=== PATIENT | female | born 1955 | race Caucasian/White ===

== ENCOUNTER → 2017-12-20 15:34 | Outpatient (CLI) | payer MEDICARE, MEDICAID, SELFPAY ==
[2017-12-20 17:42] LABS: HEMOLYSIS < 15 (0-50); Iron 42 ug/dL (37-170)
[2017-12-20 17:50] LABS: BUN Creatinine Ratio 16.9 (6-22); Calcium 9.3 mg/dL (8.4-10.2); Estimated Glomerular Filt Rate 18.8 mL/min (>60); Glucose 103 mg/dL (80-110); HEMOLYSIS < 15 (0-50); Potassium 4.8 mmol/L (3.4-5.1); Sodium 144 mmol/L (137-145)
[2017-12-20 17:53] LABS: Percent Iron Saturation 11 % (15-50); Total Iron Binding Capacity 369 ug/mL (265-497); Transferrin 298 mg/dL (206-381)
[2017-12-20 18:19] LABS: Ferritin 40.7 ng/mL (11.1-264)
[2017-12-22 15:56] LABS: Parathyroid Hormone Int 423 pg/mL (14-64)
== END ==
PROVIDERS: PCP Nurse Practitioner; Visit Provider Student in an Organized Health Care Education/Training Program
DX: N05.9 Unspecified nephritic syndrome with unspecified morphologic changes (principal); I50.32 Chronic diastolic (congestive) heart failure; D50.0 Iron deficiency anemia secondary to blood loss (chronic); N25.81 Secondary hyperparathyroidism of renal origin
CPT/HCPCS: 36415; 80048; 82728; 83540; 83550; 83880; 83970

== ENCOUNTER → 2018-02-20 12:46 | Outpatient (CLI) | payer MEDICARE, MEDICAID, SELFPAY ==
[2018-02-20 13:11] LABS: Hematocrit 35.8 % (36-46); Hemoglobin 11.6 g/dL (12.0-16.0)
[2018-02-20 13:54] LABS: BUN Creatinine Ratio 18.8 (6-22); Blood Urea Nitrogen 45 mg/dL (7-17); Calcium 9.6 mg/dL (8.4-10.2); Carbon Dioxide 25 mmol/L (22-32); Chloride 107 mmol/L (98-107); Estimated Glomerular Filt Rate 20.5 mL/min (>60); Glucose 158 mg/dL (80-110); HEMOLYSIS < 15 (0-50); Potassium 4.7 mmol/L (3.4-5.1); Sodium 142 mmol/L (137-145)
[2018-02-20 14:00] LABS: HEMOLYSIS < 15 (0-50); Iron 52 ug/dL (37-170)
[2018-02-20 14:10] LABS: Percent Iron Saturation 15 % (15-50); Total Iron Binding Capacity 348 ug/dL (265-497); Transferrin 283 mg/dL (206-381)
[2018-02-20 14:23] LABS: Ferritin 30.3 ng/mL (11.1-264)
[2018-02-22 13:46] LABS: Parathyroid Hormone Int 314 pg/mL (14-64)
== END ==
PROVIDERS: PCP Nurse Practitioner; Visit Provider Student in an Organized Health Care Education/Training Program
DX: N05.9 Unspecified nephritic syndrome with unspecified morphologic changes (principal); I50.32 Chronic diastolic (congestive) heart failure; D50.0 Iron deficiency anemia secondary to blood loss (chronic); D64.9 Anemia, unspecified; N25.81 Secondary hyperparathyroidism of renal origin
CPT/HCPCS: 36415; 80048; 82728; 83540; 83550; 83880; 83970; 85014; 85018

== ENCOUNTER → 2018-04-17 14:16 | Outpatient (CLI) | payer MEDICARE, MEDICAID, SELFPAY ==
[2018-04-17 15:10] LABS: Hematocrit 36.6 % (36-46); Hemoglobin 12.2 g/dL (12.0-16.0)
[2018-04-17 15:31] LABS: B Type Natriuretic Peptide 87.2 (<100)
[2018-04-17 15:44] LABS: BUN Creatinine Ratio 18.5 (6-22); Blood Urea Nitrogen 50 mg/dL (7-17); Calcium 9.7 mg/dL (8.4-10.2); Carbon Dioxide 25 mmol/L (22-32); Chloride 104 mmol/L (98-107); Estimated Glomerular Filt Rate 17.9 mL/min (>60); Glucose 155 mg/dL (80-110); HEMOLYSIS < 15 (0-50); Iron 58 ug/dL (37-170); Potassium 4.9 mmol/L (3.4-5.1); Sodium 142 mmol/L (137-145)
[2018-04-17 15:55] LABS: Percent Iron Saturation 18 % (15-50); Total Iron Binding Capacity 327 ug/dL (265-497); Transferrin 294 mg/dL (206-381)
[2018-04-17 16:21] LABS: Ferritin 42.5 ng/mL (11.1-264)
[2018-04-20 14:40] LABS: Parathyroid Hormone Int 447 pg/mL (14-64)
== END ==
PROVIDERS: PCP Nurse Practitioner; Visit Provider Student in an Organized Health Care Education/Training Program
DX: N05.9 Unspecified nephritic syndrome with unspecified morphologic changes (principal); I50.32 Chronic diastolic (congestive) heart failure; D50.9 Iron deficiency anemia, unspecified; K64.9 Unspecified hemorrhoids; N25.81 Secondary hyperparathyroidism of renal origin
CPT/HCPCS: 36415; 80048; 82728; 83540; 83550; 83880; 83970; 85014; 85018

== ENCOUNTER 2018-05-12 18:21 | Emergency (ER) | payer MEDICARE, MEDICAID, SELFPAY ==
[2018-05-12 18:33] VITALS: BP 155/75; PULSE 73; RESP 18; TEMP 36.3; O2SAT 99
[2018-05-12 18:38] LABS: Appearance Urine UA CLOUDY; Bilirubin Urine UA NEGATIVE (NEGATIVE); Color Urine UA YELLOW; Glucose Urine UA NEGATIVE (Normal); Ketones Urine UA NEGATIVE (NEGATIVE); Leukocyte Esterase Urine UA 2+ (NEGATIVE); Nitrite Urine UA NEGATIVE (Negative); Occult Blood Urine UA 1+ (Negative); Protein Urine UA 3+ (Negative); Specific Gravity Urine UA 1.015 (1.000-1.035); Urobilinogen Urine UA 0.2 E.U./dL (0.2); pH Urine UA 5.5 (4.5-8.0)
[2018-05-12 19:02] LABS: Bacteria Urine Many (>30); Culture Indicated Urine Specimen Cultured; RBC Urine 1-5/HPF (0-5/HPF); WBC Urine >100/HPF (0-5/HPF)
--- NOTE | 2018-05-12 19:04 | ED_ITS ---
HPI - Female Genitourinary <SARITHA Tran - Last Filed: 05/12/18 19:32> General Chief complaint: Urogenital-Female Stated complaint: UTI Time Seen by Provider: 05/12/18 18:50 Source: patient Mode of arrival: ambulatory Limitations: no limitations History of Present Illness HPI Narrative: Patient presents with chief complaint of ?I have a UTI.? She has a history of diabetes, renal failure and just received a fistula the other day at [place]. She complains of dysuria, urgency and frequency since Sunday. She has taken azo. She denies any chest pain, shortness of breath, flank pain, fever, vomiting or diarrhea. She has no abnormal vaginal symptoms. Related Data Home Medications Medication Instructions Recorded Confirmed OMEGA-3 FATTY ACIDS (FISH OIL) 1,000 mg PO Q DAY #0 03/19/16 ascorbic acid (vitamin C) #0 03/19/16 aspirin 81 mg PO QDAY #0 03/19/16 multivitamin [Multiple Vitamins] 1 tab PO QDAY #0 tab 03/19/16 amlodipine 10 mg PO HS #0 10/10/17 bupropion HCl [Wellbutrin SR] 150 mg PO BID #0 10/10/17 glimepiride [Amaryl] 2 tab PO #0 10/10/17 insulin glargine [Basaglar KwikPen #0 10/10/17 U-100 Insulin] levothyroxine 1 tab PO QDAY #0 10/10/17 oxycodone 5 mg PO #0 10/10/17 rosuvastatin 20 mg PO QDAY #0 10/10/17 Previous Rx's Medication Instructions Recorded doxycycline hyclate 100 mg PO Q12H #20 cap 10/18/17 prednisone 10 mg PO SEE INSTRUCTIONS 12 Days 10/18/17 #0 tab sulfamethoxazole-trimethoprim 1 tab PO BID 7 Days #14 tab 05/12/18 [Bactrim] Allergies Allergy/AdvReac Type Severity Reaction Status Date / Time No Known Drug Allergies Allergy Verified 05/12/18 18:36 Review of Systems <SARITHA Tran - Last Filed: 05/12/18 19:32> Review of Systems GENERAL: Denies chills, fatigue, malaise, fever, sweats. HEENT: Denies sinus pain, ear pain, sore throat, difficulty swallowing, dizziness. RESPIRATORY: Denies dyspnea, cough, wheezing, hemoptysis, sputum. CARDIOVASCULAR: Denies chest pain, palpitations, orthopnea, edema, GASTROINTESTINAL: Denies nausea, vomiting, abdominal pain, diarrhea, constipation, melena. : See HPI MUSCULOSKELETAL: denies weakness, joint pain, or bony pain SKIN: Denies rash, skin lesions, or other NEUROLOGIC: Denies weakness, headache, numbness, change in speech, confusion, seizures, incoordination. PSYCHIATRIC: No concerning psychosocial issues. 12 point review of systems is negative except for those stated above Exam <CORTNEY Tran-BC - Last Filed: 05/12/18 19:32> Narrative Exam Narrative: GENERAL: Obese patient sitting on stretcher HEAD: Atraumatic. Normocephalic. No temporal or scalp tenderness. EYES: Pupils equal round and reactive. Extraocular motions intact. No scleral icterus. No injection or drainage. ENT: Nose without bleeding, purulent drainage or septal hematoma. Throat without erythema, tonsillar hypertrophy or exudate. Uvula midline. Airway patent. NECK: Trachea midline. No JVD or lymphadenopathy. Supple, nontender, no meningeal signs. CARDIOVASCULAR: Regular rate and rhythm without murmurs, gallops, or rubs. RESPIRATORY: Clear to auscultation. Breath sounds equal bilaterally. No wheezes , rales, or rhonchi. GASTROINTESTINAL: Abdomen soft, suprapubic tenderness to palpation, nondistended. No hepato-splenomegaly, or palpable masses. No guarding. No pulsatile mass. Active bowel sounds all 4 quadrants. EXTREMITIES: No clubbing, cyanosis, or edema. No joint tenderness, effusion, or edema noted. BACK: Nontender without deformity or crepitance. No CVA tenderness bilaterally. NEURO: AOx3. SKIN: Fistula site and left arm without erythema. Edges well approximated no drainage noted Initial Vital Signs Initial Vital Signs: Vital Signs Temperature 97.4 F L 05/12/18 18:33 Pulse Rate 73 05/12/18 18:33 Respiratory Rate 18 05/12/18 18:33 Blood Pressure 155/75 H 05/12/18 18:33 Pulse Oximetry 99 05/12/18 18:33 <Magdalena Gallagher DO - Last Filed: 05/14/18 01:47> Initial Vital Signs Initial Vital Signs: Vital Signs Temperature 97.4 F L 05/12/18 18:33 Pulse Rate 73 05/12/18 18:33 Respiratory Rate 18 05/12/18 18:33 Blood Pressure 155/75 H 05/12/18 18:33 Pulse Oximetry 99 05/12/18 18:33 Course <SARITHA Tran - Last Filed: 05/12/18 19:32> Orders Ordered: Discontinued Medications Trimethoprim/Sulfamethoxazole (Bactrim Ds) 1 tab PO NOW ONE Stop: 05/12/18 19:21 Last Admin: 05/12/18 19:33 Dose: 1 tab Vital Signs - 8 hr 05/12/18 18:33 Temperature 97.4 F L Pulse Rate 73 Respiratory Rate 18 Blood Pressure 155/75 H Pulse Oximetry 99 <Magdalena Gallagher DO - Last Filed: 05/14/18 01:47> Orders Ordered: Discontinued Medications Trimethoprim/Sulfamethoxazole (Bactrim Ds) 1 tab PO NOW ONE Stop: 05/12/18 19:21 Last Admin: 05/12/18 19:33 Dose: 1 tab Vital Signs - 8 hr 05/12/18 18:33 Temperature 97.4 F L Pulse Rate 73 Respiratory Rate 18 Blood Pressure 155/75 H Pulse Oximetry 99 MDM - Female Genitourinary <SARITHA Tran - Last Filed: 05/12/18 19:32> Lab Data Attestation: I reviewed the patient's lab results. Lab Results 05/12/18 Range/Units 18:25 Urine Color Yellow Urine Appearance Cloudy Urine pH 5.5 (4.5-8.0) Ur Specific [place] 1.015 (1.000-1.035) Urine Protein 3+ H (Negative) Urine Glucose (UA) Negative (Normal) g/dL Urine Ketones Negative (NEGATIVE) Urine Occult Blood 1+ H (Negative) Urine Nitrate Negative (Negative) Urine Bilirubin Negative (NEGATIVE) Urine Urobilinogen 0.2 (0.2) E.U./dL Ur Leukocyte Esterase 2+ H (NEGATIVE) Urine RBC 1-5/hpf (0-5/HPF) Urine WBC >100/hpf H (0-5/HPF) Urine Bacteria Many (>30) H (None) Ur Culture Indicated? Specimen cultured Micro UA Comment Not Reportable MDM Narrative Medical decision making narrative: Patient presents with signs and symptoms of urinary tract infection. She is hemodynamically stable, afebrile and nontoxic- appearing. She is noted to have many bacteria on her UA. However given her reduce kidney function, antibiotic selection is crucial for this patient. I calculated out her creatinine clearance as well as her GFR from her most recent visit a few weeks ago. As per up-to-date recommendations, I gave her a single double strength Bactrim and placed her on a regular strength Bactrim twice a day. I discussed at length follow-up precautions including fever, flank pain, worsening or no improvement. She really has a PCP appointment scheduled on Sunday plans on following up with that. She has no questions or concerns upon discharge. <Magdalena Gallagher, - Last Filed: 05/14/18 01:47> Lab Data Lab Results 05/12/18 Range/Units 18:25 Urine Color Yellow Urine Appearance Cloudy Urine pH 5.5 (4.5-8.0) Ur Specific [place] 1.015 (1.000-1.035) Urine Protein 3+ H (Negative) Urine Glucose (UA) Negative (Normal) g/dL Urine Ketones Negative (NEGATIVE) Urine Occult Blood 1+ H (Negative) Urine Nitrate Negative (Negative) Urine Bilirubin Negative (NEGATIVE) Urine Urobilinogen 0.2 (0.2) E.U./dL Ur Leukocyte Esterase 2+ H (NEGATIVE) Urine RBC 1-5/hpf (0-5/HPF) Urine WBC >100/hpf H (0-5/HPF) Urine Bacteria Many (>30) H (None) Ur Culture Indicated? Specimen cultured Micro UA Comment Not Reportable Discharge Plan Departure Patient Disposition: Home Clinical Impression: Acute UTI Discharge Date/Time: 05/12/18 19:44 Interventions: ED Discharge Assessment Last Done: 05/12/18 19:44 Instructions: DI for Urinary Tract Infection (UTI) Activity Restrictions/Additional Instructions: I am starting on Bactrim for the urinary tract infection. I have made the dose of Bactrim safe for your kidney function. Please follow-up with primary care provider as scheduled. Please monitor for fever, flank pain inability keep down fluids. Please be re-evaluated if any of these occur. Prescriptions: New sulfamethoxazole-trimethoprim [Bactrim] 400-80 mg tablet 1 tab PO BID 7 Days Qty: 14 RF: 0 No Action aspirin 81 MG tablet,delayed release (DR/EC) 81 mg PO QDAY Qty: 0 RF: 0 multivitamin [Multiple Vitamins] 1 EACH tablet 1 tab PO QDAY Qty: 0 RF: 0 OMEGA-3 FATTY ACIDS (FISH OIL) 1,000 mg PO Q DAY Qty: 0 RF: 0 ascorbic acid (vitamin C) 500 MG tablet Qty: 0 RF: 0 bupropion HCl [Wellbutrin SR] 150 MG tablet extended release 12 hr 150 mg PO BID Qty: 0 RF: 0 insulin glargine [Basaglar KwikPen U-100 Insulin] 100 UNIT/1 ML insulin pen Qty: 0 RF: 0 levothyroxine 200 MCG tablet 1 tab PO QDAY Qty: 0 RF: 0 oxycodone 5 MG tablet 5 mg PO Qty: 0 RF: 0 amlodipine 10 MG tablet 10 mg PO HS Qty: 0 RF: 0 rosuvastatin 20 MG tablet 20 mg PO QDAY Qty: 0 RF: 0 glimepiride [Amaryl] 4 MG tablet 2 tab PO Qty: 0 RF: 0 prednisone 10 MG tablet 10 mg PO SEE INSTRUCTIONS 12 Days Qty: 0 RF: 0 doxycycline hyclate 100 MG capsule 100 mg PO Q12H Qty: 20 RF: 0 Referrals: Penny Lombardi ARNP [Primary Care Provider] - <Magdalena Gallagher DO - Last Filed: 05/14/18 01:47> Cosign ED Attending Daina Attestation: I was immediately available in the department for consultation. Documentation has been reviewed. I agree with assessment and plan.
[2018-05-12] MEDS: TRIMETH/SULFA 160/800 (DS) TABLET 1 TAB PO (19:33)
[2018-05-12 19:44] VITALS: BP 154/72; PULSE 75; RESP 18; TEMP 36.3; O2SAT 98
== END 2018-05-12 19:44 | disposition home or self-care (01) ==
PROVIDERS: Emergency Medicine; Emergency Provider Nurse Practitioner Family; PCP Nurse Practitioner
DX: N39.0 Urinary tract infection, site not specified (principal)
CPT/HCPCS: 81001; 87077; 87086; 87186; 99283

== ENCOUNTER → 2018-06-18 10:34 | Outpatient (CLI) | payer MEDICARE, MEDICAID, SELFPAY ==
[2018-06-18 12:01] LABS: Hematocrit 34.3 % (36-46); Hemoglobin 11.1 g/dL (12.0-16.0)
[2018-06-18 12:17] LABS: BUN Creatinine Ratio 18.2 (6-22); Blood Urea Nitrogen 51 mg/dL (7-17); Calcium 9.6 mg/dL (8.4-10.2); Carbon Dioxide 23 mmol/L (22-32); Chloride 105 mmol/L (98-107); Estimated Glomerular Filt Rate 17.2 mL/min (>60); Glucose 174 mg/dL (80-110); HEMOLYSIS < 15 (0-50); Potassium 4.7 mmol/L (3.4-5.1); Sodium 145 mmol/L (137-145)
[2018-06-18 12:22] LABS: HEMOLYSIS < 15 (0-50); Iron 72 ug/dL (37-170)
[2018-06-18 12:32] LABS: Percent Iron Saturation 22 % (15-50); Total Iron Binding Capacity 324 ug/dL (265-497); Transferrin 273 mg/dL (206-381)
[2018-06-18 12:52] LABS: Ferritin 48.8 ng/mL (11.1-264)
[2018-06-19 14:57] LABS: Parathyroid Hormone Int 318 pg/mL (14-64)
== END ==
PROVIDERS: PCP Nurse Practitioner; Visit Provider Student in an Organized Health Care Education/Training Program
DX: N05.9 Unspecified nephritic syndrome with unspecified morphologic changes (principal); D50.0 Iron deficiency anemia secondary to blood loss (chronic); D64.9 Anemia, unspecified; N25.81 Secondary hyperparathyroidism of renal origin
CPT/HCPCS: 36415; 80048; 82728; 83540; 83550; 83970; 85014; 85018

== ENCOUNTER → 2018-08-08 13:43 | Outpatient (CLI) | payer MEDICARE, MEDICAID, SELFPAY ==
--- NOTE | 2018-08-08 15:05 | PM.TREADMILL ---
Cardiac Stress Test Report Referral & Results Date Patient Seen: 08/08/18 Requesting provider: Penny Lombardi Indication: Dyspnea upon exertion Rest ECG: Intraventricular conduction delay/right bundle branch block Procedure Note: Today following both written and verbal informed consent, the patient was exercised according to a standard [facility] protocol. The patient exercised for a total of 2 min 13 sec achieving a maximum heart rate of 140. Patient's maximum systolic blood pressure was 208. This was an estimated 4.6 MET's. Patient's oxygen saturation remained at 94+ percent throughout Patient had severely limited exercise capacity with a functional aerobic impairment of about 50% on the sedentary scale. She became severely dyspneic while her oxygen saturation remained normal. No ST see segment changes were noted though certainly her underlying ECG abnormalities could mask more subtle ST-T segment changes Impression: Severely limited exercise capacity Severe dyspnea No evidence of ischemia Abnormal EKG at baseline Could repeat stress test with perfusion imaging if clinical indication suggest that would be appropriate Please note: Actual ECG tracings can be found in the PACS system.
== END ==
PROVIDERS: PCP Nurse Practitioner; Visit Provider Nurse Practitioner
DX: R06.09 Other forms of dyspnea (principal); R94.31 Abnormal electrocardiogram [ECG] [EKG]
CPT/HCPCS: 93016; 93017; 93018

== ENCOUNTER → 2018-08-16 13:31 | Outpatient (CLI) | payer MEDICARE, MEDICAID, SELFPAY ==
[2018-08-16 14:08] LABS: Hematocrit 34.3 % (36-46); Hemoglobin 11.1 g/dL (12.0-16.0)
[2018-08-16 14:37] LABS: BUN Creatinine Ratio 18.3 (6-22); Blood Urea Nitrogen 55 mg/dL (7-17); Calcium 9.5 mg/dL (8.4-10.2); Carbon Dioxide 23 mmol/L (22-32); Chloride 107 mmol/L (98-107); Estimated Glomerular Filt Rate 15.9 mL/min (>60); Glucose 110 mg/dL (80-110); HEMOLYSIS < 15 (0-50); Potassium 4.8 mmol/L (3.4-5.1); Sodium 141 mmol/L (137-145)
[2018-08-16 15:35] LABS: HEMOLYSIS < 15 (0-50); Iron 56 ug/dL (37-170)
[2018-08-16 15:47] LABS: Percent Iron Saturation 17 % (15-50); Total Iron Binding Capacity 331 ug/dL (265-497); Transferrin 280 mg/dL (206-381)
[2018-08-20 16:22] LABS: Parathyroid Hormone Int 288 pg/mL (14-64)
== END ==
PROVIDERS: PCP Nurse Practitioner; Visit Provider Student in an Organized Health Care Education/Training Program
DX: B05.9 Measles without complication (principal); D50.0 Iron deficiency anemia secondary to blood loss (chronic); D64.9 Anemia, unspecified; N25.81 Secondary hyperparathyroidism of renal origin
CPT/HCPCS: 36415; 80048; 82728; 83540; 83550; 83970; 85014; 85018

== ENCOUNTER → 2018-09-13 16:23 | Outpatient (CLI) | payer MEDICARE, MEDICAID, SELFPAY ==
[2018-09-13 17:23] LABS: Hematocrit 34.3 % (36-46); Hemoglobin 11.1 g/dL (12.0-16.0)
[2018-09-13 17:44] LABS: B Type Natriuretic Peptide 205 (<100)
[2018-09-13 18:01] LABS: HEMOLYSIS < 15 (0-50); Iron 72 ug/dL (37-170)
[2018-09-13 18:02] LABS: BUN Creatinine Ratio 21.8 (6-22); Blood Urea Nitrogen 74 mg/dL (7-17); Calcium 9.8 mg/dL (8.4-10.2); Carbon Dioxide 22 mmol/L (22-32); Chloride 102 mmol/L (98-107); Estimated Glomerular Filt Rate 13.7 mL/min (>60); Glucose 61 mg/dL (80-110); HEMOLYSIS < 15 (0-50); Sodium 138 mmol/L (137-145)
[2018-09-13 18:11] LABS: Percent Iron Saturation 20 % (15-50); Total Iron Binding Capacity 369 ug/dL (265-497); Transferrin 298 mg/dL (206-381)
[2018-09-13 18:18] LABS: Potassium 5.4 mmol/L (3.4-5.1)
[2018-09-13 18:37] LABS: Ferritin 36.5 ng/mL (11.1-264)
[2018-09-17 14:31] LABS: Parathyroid Hormone Int 365 pg/mL (14-64)
== END ==
PROVIDERS: PCP Nurse Practitioner; Visit Provider Student in an Organized Health Care Education/Training Program
DX: N05.9 Unspecified nephritic syndrome with unspecified morphologic changes (principal); I50.32 Chronic diastolic (congestive) heart failure; D50.0 Iron deficiency anemia secondary to blood loss (chronic); D64.9 Anemia, unspecified; N25.81 Secondary hyperparathyroidism of renal origin
CPT/HCPCS: 36415; 80048; 82728; 83540; 83550; 83880; 83970; 85014; 85018

== ENCOUNTER → 2018-09-18 16:56 | Outpatient (CLI) | payer MEDICARE, MEDICAID, SELFPAY ==
--- NOTE | 2018-09-18 16:59 | DI.RAD.S_ITS ---
PROCEDURE: XR CHEST 2V INDICATIONS: SHORTNESS OF BREATH TECHNIQUE: 2 views of the chest were acquired. COMPARISON: [facility], , CHEST 2 VIEW, 10/18/2017, 1:47. FINDINGS: Surgical changes and devices: None. Lungs and pleura: Increased vascular markings and bilateral hilar region is seen with bronchial wall thickening. No definite focal infiltrate. No pleural effusions or pneumothorax. Mediastinum: Mediastinal contours are normal. Heart size is normal. Bones and chest wall: No suspicious bony abnormalities. Soft tissues appear unremarkable. IMPRESSION: Suggestion of reactive airway disease. No definite focal infiltrate. Dictated by: Dane Pugh M.D. on 09/18/2018 at 17:55 Approved by: Dane Pugh M.D. on 09/18/2018 at 17:56
== END ==
PROVIDERS: PCP Nurse Practitioner; Visit Provider Student in an Organized Health Care Education/Training Program
DX: R06.02 Shortness of breath (principal)
CPT/HCPCS: 71046

== ENCOUNTER 2018-10-08 18:53 | Emergency (ER) | payer MEDICARE, MEDICAID, SELFPAY ==
[2018-10-08] VITALS (7 sets, daily range): BP systolic 138–177; BP diastolic 54–86; PULSE 65–92; RESP 16–20; TEMP 36.9–39.5; O2SAT 92–98; BMI 41.1
--- NOTE | 2018-10-08 19:04 | DI.RAD.S_ITS ---
PROCEDURE: XR CHEST 2V INDICATIONS: productive cough TECHNIQUE: 2 views of the chest were acquired. COMPARISON: [facility], CR, XR CHEST 2V, 09/18/2018, 17:13. FINDINGS: Surgical changes and devices: None. Lungs and pleura: Mild patchy bilateral perihilar and medial basilar density. No pleural effusions or pneumothorax. Mediastinum: Mediastinal contours are normal. Heart size is enlarged. Bones and chest wall: No suspicious bony abnormalities. Soft tissues appear unremarkable. IMPRESSION: Mild atypical pneumonia. Cardiomegaly. Dictated by: Clay Cardona M.D. on 10/08/2018 at 19:26 Approved by: Clay Cardona M.D. on 10/08/2018 at 19:26
[2018-10-08 19:25] LABS: Influenza A and B by PCR Rapid Negative (Negative)
--- NOTE | 2018-10-08 20:14 | ED.URI ---
HPI - URI/Sore Throat General Chief Complaint: Upper Respiratory Symptoms Stated Complaint: FEVER,SORE NECK AND CHEST Time Seen by Provider: 10/08/18 19:58 Source: patient and family Mode of arrival: ambulatory Limitations: no limitations History of Present Illness HPI Narrative: 63-year-old female former smoker dialysis patient presents with a few days of fever, runny nose cough and yellowish sputum. She receives dialysis Sunday and had a full run yesterday. She had her flu shot. She denies any chest pain and is not dizzy or weak or lightheaded. MD Complaint: fever, cough and sore throat Onset (ago): day(s) Duration: constant Severity: moderate Relieving factors: nothing Exacerbating factors: nothing Description of mucous: yellow Able to tolerate fluids by mouth: Yes Context: sick contacts Related Data Home Medications Medication Instructions Recorded Confirmed OMEGA-3 FATTY ACIDS (FISH OIL) 1,000 mg PO Q DAY #0 03/19/16 ascorbic acid (vitamin C) #0 03/19/16 aspirin 81 mg PO QDAY #0 03/19/16 multivitamin [Multiple Vitamins] 1 tab PO QDAY #0 tab 03/19/16 amlodipine 10 mg PO HS #0 10/10/17 bupropion HCl [Wellbutrin SR] 150 mg PO BID #0 10/10/17 glimepiride [Amaryl] 2 tab PO #0 10/10/17 insulin glargine [Basaglar KwikPen #0 10/10/17 U-100 Insulin] levothyroxine 1 tab PO QDAY #0 10/10/17 oxycodone 5 mg PO #0 10/10/17 rosuvastatin 20 mg PO QDAY #0 10/10/17 Previous Rx's Medication Instructions Recorded doxycycline hyclate 100 mg PO Q12H #20 cap 10/18/17 prednisone 10 mg PO SEE INSTRUCTIONS 12 Days 10/18/17 #0 tab doxycycline hyclate 100 mg PO BID #20 tab 10/08/18 Allergies Allergy/AdvReac Type Severity Reaction Status Date / Time No Known Drug Allergies Allergy Verified 10/08/18 18:59 Review of Systems Constitutional Reports body ache(s), Reports chills, Reports fever(s), Denies lethargy and Denies weakness Eyes Denies change in vision, Denies eye discharge, Denies irritation and Denies loss of vision ENT Ears, Nose, Mouth, and Throat: Denies change in voice, Denies neck pain and Reports sore throat Cardiovascular Denies chest pain, Denies irregular heart rhythm, Denies lightheadedness, Denies palpitations, Denies dyspnea, Denies dyspnea on exertion and Denies orthopnea Respiratory Reports change in phlegm color, Reports cough, Denies dyspnea, Denies dyspnea on exertion and Denies wheezing Gastrointestinal Gastrointestinal: Denies abdominal pain, Denies change in bowel habits, Denies diarrhea, Denies nausea and Denies vomiting Genitourinary Denies hematuria, Denies flank pain, Denies urinary incontinence and Denies urinary urgency Musculoskeletal Denies neck pain Integumentary/Breasts Denies pruritus, Denies erythema, Denies rash and Denies wounds Neurologic Denies confusion, Denies loss of vision and Denies weakness Psychiatric Denies anxiety, Denies confusion, Denies depression, Denies homicidal ideation and Denies suicidal ideation Endocrine Denies palpitations Hematologic/Lymphatic Denies easy bruising Allergic/Immunologic Denies wheezing PFSH Family History Father CAD (coronary artery disease) MD (myocardial infarction) Social History Smoking Status: Former smoker Family History Father CAD (coronary artery disease) MD (myocardial infarction) Social History Smoking Status: Former smoker Exam Narrative Exam Narrative: GENERAL: 63-year-old female appears stated age, she is in mild distress with some bronchospastic cough evident from the door HEAD: Atraumatic. Normocephalic. No temporal or scalp tenderness. EYES: Pupils equal round and reactive. Extraocular motions intact. No scleral icterus. No injection or drainage. ENT: Nose without bleeding, purulent drainage or septal hematoma. Throat without erythema, tonsillar hypertrophy or exudate. Uvula midline. Airway patent. NECK: Trachea midline. No JVD or lymphadenopathy. Supple, nontender, no meningeal signs. CARDIOVASCULAR: Regular rate and rhythm without murmurs, gallops, or rubs. RESPIRATORY: Prolonged expiratory phase with some faint crackles in bilateral bases right greater than left GASTROINTESTINAL: Abdomen soft, non-tender, nondistended. No hepato-splenomegaly, or palpable masses. No guarding. EXTREMITIES: No clubbing, cyanosis, or edema. No joint tenderness, effusion, or edema noted. BACK: Nontender without deformity or crepitance. No flank tenderness. NEURO: AOx3. SKIN: No rash or erythema. Initial Vital Signs Initial Vital Signs: Vital Signs Temperature 102.9 F H 10/08/18 18:59 Pulse Rate 92 H 10/08/18 18:59 Respiratory Rate 16 10/08/18 18:59 Blood Pressure 177/79 H 10/08/18 18:59 Pulse Oximetry 98 10/08/18 18:59 Course Orders Ordered: ED Orders 10/08/18 21:05 Complete Blood Count AUTO DIFF Stat Comprehensive Metabolic Panel Stat Lactate (Lactic Acid) Stat Procalcitonin Stat 10/08/18 21:23 Blood Culture Stat Discontinued Medications Acetaminophen (Tylenol) 650 mg PO NOW ONE Stop: 10/08/18 20:36 Last Admin: 10/08/18 20:37 Dose: 650 mg Albuterol (Ventolin Hfa Prepack) 1 box MISC SEEINSTR ONE Stop: 10/08/18 22:13 Last Admin: 10/08/18 22:29 Dose: 1 box Doxycycline Hyclate (Vibramycin) 100 mg PO NOW ONE Stop: 10/08/18 22:13 Last Admin: 10/08/18 22:38 Dose: 100 mg Vital Signs - 8 hr 10/08/18 20:37 10/08/18 21:47 10/08/18 22:04 Temperature 102.7 F H 98.9 F Pulse Rate 85 Respiratory Rate 20 Blood Pressure [Right Arm] 138/54 L Pulse Oximetry 92 10/08/18 22:26 Temperature 98.5 F Pulse Rate 88 Respiratory Rate 18 Blood Pressure [Right Arm] 140/59 L Pulse Oximetry 95 MDM - URI/Sore Throat Lab Data Attestation: I reviewed the patient's lab results. Result diagrams: 10/08/18 21:05 10/08/18 21:05 Lab Results 10/08/18 10/08/18 10/08/18 Range/Units 19:02 21:05 21:05 WBC 9.5 (4.5-11.0) X10^3/uL RBC 4.26 (4.0-5.2) X10^6/uL Hgb 11.2 L (12.0-16.0) g/dL Hct 34.2 L (36-46) % MCV 80.1 (80-100) fL MCH 26.2 (26-34) PG MCHC 32.6 (30-36) % RDW 13.9 (11.6-14.8) % Plt Count 275 (150-400) X10^3/uL Neut % (Auto) 84.1 H (50-75) % Lymph % (Auto) 7.3 L (25-40) % [place] % (Auto) 4.7 (3-14) % Eos % (Auto) 3.3 (2-4) % Baso % (Auto) 0.6 (0-2) % Neut # (Auto) 8000 H (2655-4296) /uL Lymph # (Auto) 700 L (4923-5387) /uL [place] # (Auto) 400 (0-900) /uL Eos # (Auto) 300 (0-450) /uL Baso # (Auto) 100 (0-100) /uL Sodium (137-145) mmol/L Potassium (3.4-5.1) mmol/L Chloride (98-107) mmol/L Carbon Dioxide (22-32) mmol/L BUN (7-17) mg/dL Creatinine (0.52-1.04) mg/dL Estimated GFR (>60) mL/min BUN/Creatinine Ratio (6-22) Glucose (80-110) mg/dL Lactate (0.7-2.1) mmol/L Calcium (8.4-10.2) mg/dL Total Bilirubin (0.2-1.3) mg/dL AST (14-36) IU/L ALT (9-52) IU/L Alkaline Phosphatase (38-126) U/L Total Protein (6.3-8.2) g/dL Albumin (3.5-5.0) g/dL Globulin (1.7-4.1) g/dL Albumin/Globulin Ratio (1.0-2.8) Procalcitonin 0.06 (<0.5) ng/mL Influenza A & B (PCR) Negative (Negative) 10/08/18 10/08/18 Range/Units 21:05 21:05 WBC (4.5-11.0) X10^3/uL RBC (4.0-5.2) X10^6/uL Hgb (12.0-16.0) g/dL Hct (36-46) % MCV (80-100) fL MCH (26-34) PG MCHC (30-36) % RDW (11.6-14.8) % Plt Count (150-400) X10^3/uL Neut % (Auto) (50-75) % Lymph % (Auto) (25-40) % [place] % (Auto) (3-14) % Eos % (Auto) (2-4) % Baso % (Auto) (0-2) % Neut # (Auto) (2563-1517) /uL Lymph # (Auto) (3968-2692) /uL [place] # (Auto) (0-900) /uL Eos # (Auto) (0-450) /uL Baso # (Auto) (0-100) /uL Sodium 140 (137-145) mmol/L Potassium 4.1 (3.4-5.1) mmol/L Chloride 102 (98-107) mmol/L Carbon Dioxide 26 (22-32) mmol/L BUN 38 H (7-17) mg/dL Creatinine 2.60 H (0.52-1.04) mg/dL Estimated GFR 18.7 L (>60) mL/min BUN/Creatinine Ratio 14.6 (6-22) Glucose 88 (80-110) mg/dL Lactate 1.3 (0.7-2.1) mmol/L Calcium 9.8 (8.4-10.2) mg/dL Total Bilirubin 0.3 (0.2-1.3) mg/dL AST 21 (14-36) IU/L ALT 17 (9-52) IU/L Alkaline Phosphatase 105 (38-126) U/L Total Protein 8.2 (6.3-8.2) g/dL Albumin 4.7 (3.5-5.0) g/dL Globulin 3.5 (1.7-4.1) g/dL Albumin/Globulin Ratio 1.3 (1.0-2.8) Procalcitonin (<0.5) ng/mL Influenza A & B (PCR) (Negative) Imaging Data Chest x-ray: My impression: [address] [address] XRay Report Signed Patient: Petra Lopez [facility]#: [id number] : 7Acct:[id number] Age/Sex: 63 / FDate of Service: 10/08/18 Loc: ED Accession Number: [id number] Procedure: XR chest 2V Ordering Provider: John Clark D.O. PROCEDURE: XR CHEST 2V INDICATIONS: productive cough TECHNIQUE: 2 views of the chest were acquired. COMPARISON: [facility], , XR CHEST 2V, 09/18/2018, 17:13. FINDINGS: Surgical changes and devices: None. Lungs and pleura: Mild patchy bilateral perihilar and medial basilar density. No pleural effusions or pneumothorax. Mediastinum: Mediastinal contours are normal. Heart size is enlarged. Bones and chest wall: No suspicious bony abnormalities. Soft tissues appear unremarkable. IMPRESSION: Mild atypical pneumonia. Cardiomegaly. Dictated by: Clay Cardona M.D. on 10/08/2018 at 19:26 Approved by: Clay Cardona M.D. on 10/08/2018 at 19:26 Discharge Plan Departure Patient Disposition: Home Clinical Impression: Atypical pneumonia Discharge Date/Time: 10/08/18 22:44 Interventions: ED Discharge Assessment Last Done: 10/08/18 22:44 Instructions: DI for Atypical Pneumonia Activity Restrictions/Additional Instructions: *You have been diagnosed with [atypical pneumonia ] *What to do: *Take medications as directed: Your antibiotics have been electronically transmitted to the [facility] in [place] at your request *Follow up with your primary care provider in 2-3 days, call for an appointment. Let them know you were seen in the Emergency Department and that we ask that you be seen in follow up *Return to ER if you should have any new, worsening or concerning symptoms *Please call your dialysis center in the morning to see if they want you to come in given your atypical pneumonia Prescriptions: New doxycycline hyclate 100 mg tablet 100 mg PO BID Qty: 20 RF: 0 No Action aspirin 81 MG tablet,delayed release (DR/EC) 81 mg PO QDAY Qty: 0 RF: 0 multivitamin [Multiple Vitamins] 1 EACH tablet 1 tab PO QDAY Qty: 0 RF: 0 OMEGA-3 FATTY ACIDS (FISH OIL) 1,000 mg PO Q DAY Qty: 0 RF: 0 ascorbic acid (vitamin C) 500 MG tablet Qty: 0 RF: 0 bupropion HCl [Wellbutrin SR] 150 MG tablet extended release 12 hr 150 mg PO BID Qty: 0 RF: 0 insulin glargine [Basaglar KwikPen U-100 Insulin] 100 UNIT/1 ML insulin pen Qty: 0 RF: 0 levothyroxine 200 MCG tablet 1 tab PO QDAY Qty: 0 RF: 0 oxycodone 5 MG tablet 5 mg PO Qty: 0 RF: 0 amlodipine 10 MG tablet 10 mg PO HS Qty: 0 RF: 0 rosuvastatin 20 MG tablet 20 mg PO QDAY Qty: 0 RF: 0 glimepiride [Amaryl] 4 MG tablet 2 tab PO Qty: 0 RF: 0 prednisone 10 MG tablet 10 mg PO SEE INSTRUCTIONS 12 Days Qty: 0 RF: 0 doxycycline hyclate 100 MG capsule 100 mg PO Q12H Qty: 20 RF: 0 Referrals: Penny Lombardi, [facility] [Primary Care Provider] -
[2018-10-08] MEDS: ACETAMINOPHEN 325 MG TABLET 650 MG PO (20:37)
[2018-10-08 21:25] LABS: Add Manual Diff / Slide Review NO; Basophils Absolute Auto 100 /uL (0-100); Basophils Percent Auto 0.6 % (0-2); Eosinophils Absolute Auto 300 /uL (0-450); Eosinophils Percent Auto 3.3 % (2-4); Hematocrit 34.2 % (36-46); Hemoglobin 11.2 g/dL (12.0-16.0); Lymphocytes Absolute Auto 700 /uL (1100-4500); Lymphocytes Percent Auto 7.3 % (25-40); Mean Corpuscular HGB Conc 32.6 % (30-36); Mean Corpuscular Hemoglobin 26.2 PG (26-34); Mean Corpuscular Volume 80.1 fL (80-100); Monocytes Absolute Auto 400 /uL (0-900); Monocytes Percent Auto 4.7 % (3-14); Neutrophils Absolute Auto 8000 /uL (1500-7000); Neutrophils Percent Auto 84.1 % (50-75); Platelet Count 275 X10^3/uL (150-400); Red Blood Cell Count 4.26 X10^6/uL (4.0-5.2); Red Cell Distribution Width 13.9 % (11.6-14.8); White Blood Cell Count 9.5 X10^3/uL (4.5-11.0)
[2018-10-08 21:26] LABS: Lactate (Lactic Acid) 1.3 mmol/L (0.7-2.1)
[2018-10-08 21:27] LABS: Alanine Aminotransferase 17 IU/L (9-52); Albumin 4.7 g/dL (3.5-5.0); Albumin Globulin Ratio 1.3 (1.0-2.8); Alkaline Phosphatase 105 U/L (38-126); Aspartate Aminotransferase 21 IU/L (14-36); BUN Creatinine Ratio 14.6 (6-22); Bilirubin Total 0.3 mg/dL (0.2-1.3); Blood Urea Nitrogen 38 mg/dL (7-17); Calcium 9.8 mg/dL (8.4-10.2); Carbon Dioxide 26 mmol/L (22-32); Chloride 102 mmol/L (98-107); Estimated Glomerular Filt Rate 18.7 mL/min (>60); Globulin 3.5 g/dL (1.7-4.1); Glucose 88 mg/dL (80-110); HEMOLYSIS < 15 (0-50); Potassium 4.1 mmol/L (3.4-5.1); Sodium 140 mmol/L (137-145); Total Protein 8.2 g/dL (6.3-8.2)
[2018-10-08 21:42] LABS: Procalcitonin 0.06 ng/mL (<0.5)
[2018-10-08] MEDS: ALBUTEROL HFA PREPACK 1 BOX MISC (22:29)
[2018-10-08] MEDS: DOXYCYCLINE HYCLATE 100 MG TABLET PO (22:38)
--- NOTE | 2018-10-09 04:14 | ED_ITS ---
HPI - URI/Sore Throat General Chief Complaint: Upper Respiratory Symptoms Stated Complaint: FEVER,SORE NECK AND CHEST Time Seen by Provider: 10/08/18 19:58 Source: patient and family Mode of arrival: ambulatory Limitations: no limitations History of Present Illness HPI Narrative: 63-year-old female former smoker dialysis patient presents with a few days of fever, runny nose cough and yellowish sputum. She receives dialysis Sunday and had a full run yesterday. She had her flu shot. She denies any chest pain and is not dizzy or weak or lightheaded. MD Complaint: fever, cough and sore throat Onset (ago): day(s) Duration: constant Severity: moderate Relieving factors: nothing Exacerbating factors: nothing Description of mucous: yellow Able to tolerate fluids by mouth: Yes Context: sick contacts Related Data Home Medications Medication Instructions Recorded Confirmed OMEGA-3 FATTY ACIDS (FISH OIL) 1,000 mg PO Q DAY #0 03/19/16 ascorbic acid (vitamin C) #0 03/19/16 aspirin 81 mg PO QDAY #0 03/19/16 multivitamin [Multiple Vitamins] 1 tab PO QDAY #0 tab 03/19/16 amlodipine 10 mg PO HS #0 10/10/17 bupropion HCl [Wellbutrin SR] 150 mg PO BID #0 10/10/17 glimepiride [Amaryl] 2 tab PO #0 10/10/17 insulin glargine [Basaglar KwikPen #0 10/10/17 U-100 Insulin] levothyroxine 1 tab PO QDAY #0 10/10/17 oxycodone 5 mg PO #0 10/10/17 rosuvastatin 20 mg PO QDAY #0 10/10/17 Previous Rx's Medication Instructions Recorded doxycycline hyclate 100 mg PO Q12H #20 cap 10/18/17 prednisone 10 mg PO SEE INSTRUCTIONS 12 Days 10/18/17 #0 tab doxycycline hyclate 100 mg PO BID #20 tab 10/08/18 Allergies Allergy/AdvReac Type Severity Reaction Status Date / Time No Known Drug Allergies Allergy Verified 10/08/18 18:59 Review of Systems Constitutional Reports body ache(s), Reports chills, Reports fever(s), Denies lethargy and Denies weakness Eyes Denies change in vision, Denies eye discharge, Denies irritation and Denies loss of vision ENT Ears, Nose, Mouth, and Throat: Denies change in voice, Denies neck pain and Reports sore throat Cardiovascular Denies chest pain, Denies irregular heart rhythm, Denies lightheadedness, Denies palpitations, Denies dyspnea, Denies dyspnea on exertion and Denies orthopnea Respiratory Reports change in phlegm color, Reports cough, Denies dyspnea, Denies dyspnea on exertion and Denies wheezing Gastrointestinal Gastrointestinal: Denies abdominal pain, Denies change in bowel habits, Denies diarrhea, Denies nausea and Denies vomiting Genitourinary Denies hematuria, Denies flank pain, Denies urinary incontinence and Denies urinary urgency Musculoskeletal Denies neck pain Integumentary/Breasts Denies pruritus, Denies erythema, Denies rash and Denies wounds Neurologic Denies confusion, Denies loss of vision and Denies weakness Psychiatric Denies anxiety, Denies confusion, Denies depression, Denies homicidal ideation and Denies suicidal ideation Endocrine Denies palpitations Hematologic/Lymphatic Denies easy bruising Allergic/Immunologic Denies wheezing PFSH Family History Father CAD (coronary artery disease) [place] (myocardial infarction) Social History Smoking Status: Former smoker Family History Father CAD (coronary artery disease) [place] (myocardial infarction) Social History Smoking Status: Former smoker Exam Narrative Exam Narrative: GENERAL: 63-year-old female appears stated age, she is in mild distress with some bronchospastic cough evident from the door HEAD: Atraumatic. Normocephalic. No temporal or scalp tenderness. EYES: Pupils equal round and reactive. Extraocular motions intact. No scleral icterus. No injection or drainage. ENT: Nose without bleeding, purulent drainage or septal hematoma. Throat without erythema, tonsillar hypertrophy or exudate. Uvula midline. Airway patent. NECK: Trachea midline. No JVD or lymphadenopathy. Supple, nontender, no meningeal signs. CARDIOVASCULAR: Regular rate and rhythm without murmurs, gallops, or rubs. RESPIRATORY: Prolonged expiratory phase with some faint crackles in bilateral bases right greater than left GASTROINTESTINAL: Abdomen soft, non-tender, nondistended. No hepato- splenomegaly, or palpable masses. No guarding. EXTREMITIES: No clubbing, cyanosis, or edema. No joint tenderness, effusion, or edema noted. BACK: Nontender without deformity or crepitance. No flank tenderness. NEURO: AOx3. SKIN: No rash or erythema. Initial Vital Signs Initial Vital Signs: Vital Signs Temperature 102.9 F H 10/08/18 18:59 Pulse Rate 92 H 10/08/18 18:59 Respiratory Rate 16 10/08/18 18:59 Blood Pressure 177/79 H 10/08/18 18:59 Pulse Oximetry 98 10/08/18 18:59 Course Orders Ordered: ED Orders 10/08/18 21:05 Complete Blood Count AUTO DIFF Stat Comprehensive Metabolic Panel Stat Lactate (Lactic Acid) Stat Procalcitonin Stat 10/08/18 21:23 Blood Culture Stat Discontinued Medications Acetaminophen (Tylenol) 650 mg PO NOW ONE Stop: 10/08/18 20:36 Last Admin: 10/08/18 20:37 Dose: 650 mg Albuterol (Ventolin Hfa Prepack) 1 box MISC SEEINSTR ONE Stop: 10/08/18 22:13 Last Admin: 10/08/18 22:29 Dose: 1 box Doxycycline Hyclate (Vibramycin) 100 mg PO NOW ONE Stop: 10/08/18 22:13 Last Admin: 10/08/18 22:38 Dose: 100 mg Vital Signs - 8 hr 10/08/18 20:37 10/08/18 21:47 10/08/18 22:04 Temperature 102.7 F H 98.9 F Pulse Rate 85 Respiratory Rate 20 Blood Pressure [Right Arm] 138/54 L Pulse Oximetry 92 10/08/18 22:26 Temperature 98.5 F Pulse Rate 88 Respiratory Rate 18 Blood Pressure [Right Arm] 140/59 L Pulse Oximetry 95 MDM - URI/Sore Throat Lab Data Attestation: I reviewed the patient's lab results. Result diagrams: 10/08/18 21:05 10/08/18 21:05 Lab Results 10/08/18 10/08/18 10/08/18 Range/Units 19:02 21:05 21:05 WBC 9.5 (4.5-11.0) X10^3/uL RBC 4.26 (4.0-5.2) X10^6/uL Hgb 11.2 L (12.0-16.0) g/dL Hct 34.2 L (36-46) % MCV 80.1 (80-100) fL MCH 26.2 (26-34) PG MCHC 32.6 (30-36) % RDW 13.9 (11.6-14.8) % Plt Count 275 (150-400) X10^3/uL Neut % (Auto) 84.1 H (50-75) % Lymph % (Auto) 7.3 L (25-40) % [place] % (Auto) 4.7 (3-14) % Eos % (Auto) 3.3 (2-4) % Baso % (Auto) 0.6 (0-2) % Neut # (Auto) 8000 H (8852-3143) /uL Lymph # (Auto) 700 L (3191-9794) /uL [place] # (Auto) 400 (0-900) /uL Eos # (Auto) 300 (0-450) /uL Baso # (Auto) 100 (0-100) /uL Sodium (137-145) mmol/L Potassium (3.4-5.1) mmol/L Chloride (98-107) mmol/L Carbon Dioxide (22-32) mmol/L BUN (7-17) mg/dL Creatinine (0.52-1.04) mg/dL Estimated GFR (>60) mL/min BUN/Creatinine Ratio (6-22) Glucose (80-110) mg/dL Lactate (0.7-2.1) mmol/L Calcium (8.4-10.2) mg/dL Total Bilirubin (0.2-1.3) mg/dL AST (14-36) IU/L ALT (9-52) IU/L Alkaline Phosphatase (38-126) U/L Total Protein (6.3-8.2) g/dL Albumin (3.5-5.0) g/dL Globulin (1.7-4.1) g/dL Albumin/Globulin Ratio (1.0-2.8) Procalcitonin 0.06 (<0.5) ng/mL Influenza A & B (PCR) Negative (Negative) 10/08/18 10/08/18 Range/Units 21:05 21:05 WBC (4.5-11.0) X10^3/uL RBC (4.0-5.2) X10^6/uL Hgb (12.0-16.0) g/dL Hct (36-46) % MCV (80-100) fL MCH (26-34) PG MCHC (30-36) % RDW (11.6-14.8) % Plt Count (150-400) X10^3/uL Neut % (Auto) (50-75) % Lymph % (Auto) (25-40) % [place] % (Auto) (3-14) % Eos % (Auto) (2-4) % Baso % (Auto) (0-2) % Neut # (Auto) (1426-8033) /uL Lymph # (Auto) (3704-6295) /uL [place] # (Auto) (0-900) /uL Eos # (Auto) (0-450) /uL Baso # (Auto) (0-100) /uL Sodium 140 (137-145) mmol/L Potassium 4.1 (3.4-5.1) mmol/L Chloride 102 (98-107) mmol/L Carbon Dioxide 26 (22-32) mmol/L BUN 38 H (7-17) mg/dL Creatinine 2.60 H (0.52-1.04) mg/dL Estimated GFR 18.7 L (>60) mL/min BUN/Creatinine Ratio 14.6 (6-22) Glucose 88 (80-110) mg/dL Lactate 1.3 (0.7-2.1) mmol/L Calcium 9.8 (8.4-10.2) mg/dL Total Bilirubin 0.3 (0.2-1.3) mg/dL AST 21 (14-36) IU/L ALT 17 (9-52) IU/L Alkaline Phosphatase 105 (38-126) U/L Total Protein 8.2 (6.3-8.2) g/dL Albumin 4.7 (3.5-5.0) g/dL Globulin 3.5 (1.7-4.1) g/dL Albumin/Globulin Ratio 1.3 (1.0-2.8) Procalcitonin (<0.5) ng/mL Influenza A & B (PCR) (Negative) Imaging Data Chest x-ray: My impression: [address] [address] XRay Report Signed Patient: Petra Lopez [facility]#: [id number] : 7Acct:[id number] Age/Sex: 63 / FDate of Service: 10/08/18 Loc: ED Accession Number: [id number] Procedure: XR chest 2V Ordering Provider: John Clark D.O. PROCEDURE: XR CHEST 2V INDICATIONS: productive cough TECHNIQUE: 2 views of the chest were acquired. COMPARISON: [facility], , XR CHEST 2V, 09/18/2018, 17:13. FINDINGS: Surgical changes and devices: None. Lungs and pleura: Mild patchy bilateral perihilar and medial basilar density. No pleural effusions or pneumothorax. Mediastinum: Mediastinal contours are normal. Heart size is enlarged. Bones and chest wall: No suspicious bony abnormalities. Soft tissues appear unremarkable. IMPRESSION: Mild atypical pneumonia. Cardiomegaly. Dictated by: Clay Cardona M.D. on 10/08/2018 at 19:26 Approved by: Clay Cardona M.D. on 10/08/2018 at 19:26 Discharge Plan Departure Patient Disposition: Home Clinical Impression: Atypical pneumonia Discharge Date/Time: 10/08/18 22:44 Interventions: ED Discharge Assessment Last Done: 10/08/18 22:44 Instructions: DI for Atypical Pneumonia Activity Restrictions/Additional Instructions: *You have been diagnosed with [atypical pneumonia ] *What to do: *Take medications as directed: Your antibiotics have been electronically transmitted to the [facility] in [place] at your request *Follow up with your primary care provider in 2-3 days, call for an appointment. Let them know you were seen in the Emergency Department and that we ask that you be seen in follow up *Return to ER if you should have any new, worsening or concerning symptoms *Please call your dialysis center in the morning to see if they want you to come in given your atypical pneumonia Prescriptions: New doxycycline hyclate 100 mg tablet 100 mg PO BID Qty: 20 RF: 0 No Action aspirin 81 MG tablet,delayed release (DR/EC) 81 mg PO QDAY Qty: 0 RF: 0 multivitamin [Multiple Vitamins] 1 EACH tablet 1 tab PO QDAY Qty: 0 RF: 0 OMEGA-3 FATTY ACIDS (FISH OIL) 1,000 mg PO Q DAY Qty: 0 RF: 0 ascorbic acid (vitamin C) 500 MG tablet Qty: 0 RF: 0 bupropion HCl [Wellbutrin SR] 150 MG tablet extended release 12 hr 150 mg PO BID Qty: 0 RF: 0 insulin glargine [Basaglar KwikPen U-100 Insulin] 100 UNIT/1 ML insulin pen Qty: 0 RF: 0 levothyroxine 200 MCG tablet 1 tab PO QDAY Qty: 0 RF: 0 oxycodone 5 MG tablet 5 mg PO Qty: 0 RF: 0 amlodipine 10 MG tablet 10 mg PO HS Qty: 0 RF: 0 rosuvastatin 20 MG tablet 20 mg PO QDAY Qty: 0 RF: 0 glimepiride [Amaryl] 4 MG tablet 2 tab PO Qty: 0 RF: 0 prednisone 10 MG tablet 10 mg PO SEE INSTRUCTIONS 12 Days Qty: 0 RF: 0 doxycycline hyclate 100 MG capsule 100 mg PO Q12H Qty: 20 RF: 0 Referrals: Penny Lombardi, PLANISHING HAMMER OPERATOR [Primary Care Provider] -
== END 2018-10-08 22:44 | disposition home or self-care (01) ==
PROVIDERS: Emergency Provider Emergency Medicine; PCP Nurse Practitioner
DX: J18.9 Pneumonia, unspecified organism (principal)
CPT/HCPCS: 36415; 36591; 71046; 80053; 83605; 84145; 85025; 87040; 87400; 99283; 99284

== ENCOUNTER → 2019-01-08 10:44 | Outpatient (CLI) | payer MEDICARE, MEDICAID, SELFPAY ==
[2019-01-08 12:07] LABS: Cholesterol 169 mg/dL (140-199); HDL Cholesterol 32 mg/dL (40-60); LDL Cholesterol Calculated 84 mg/dL (<100); Triglycerides 266 mg/dL (35-150)
[2019-01-08 12:14] LABS: Hemoglobin A1C% w Est Avg Glu 6.1 % (4.0-6.0)
[2019-01-08 12:40] LABS: Thyroid Stimulating Hormone 0.78 uIU/mL (0.47-4.68)
== END ==
PROVIDERS: PCP Nurse Practitioner; Visit Provider Nurse Practitioner
DX: G47.30 Sleep apnea, unspecified (principal); E03.9 Hypothyroidism, unspecified; E11.9 Type 2 diabetes mellitus without complications; E78.5 Hyperlipidemia, unspecified
CPT/HCPCS: 36415; 80061; 83036; 84439; 84443

== ENCOUNTER 2019-03-06 17:20 | Emergency (ER) | payer MEDICARE, MEDICAID, SELFPAY ==
[2019-03-06 17:39] VITALS: BP 135/67; PULSE 71; RESP 20; TEMP 37.2; O2SAT 96; BMI 38.9
[2019-03-06 17:54] LABS: Appearance Urine UA CLOUDY; Bilirubin Urine UA NEGATIVE (NEGATIVE); Color Urine UA YELLOW; Glucose Urine UA NEGATIVE (Negative); Ketones Urine UA NEGATIVE (NEGATIVE); Leukocyte Esterase Urine UA 2+ (NEGATIVE); Nitrite Urine UA NEGATIVE (Negative); Occult Blood Urine UA 2+ (Negative); Protein Urine UA 2+ (Negative); Specific Gravity Urine UA 1.015 (1.000-1.035); Urobilinogen Urine UA 0.2 E.U./dL (0.2)
[2019-03-06 18:10] LABS: Bacteria Urine Many (>30); Culture Indicated Urine Specimen Cultured; RBC Urine 10-30/HPF (0-5/HPF); Squamous Epithelial Cell Urine 0-1 /HPF (0-5/HPF); WBC Urine >100/HPF (0-5/HPF)
--- NOTE | 2019-03-06 19:24 | ED.FEMALEGU ---
HPI - Female Genitourinary <Alysha Upton, PROGRAM COORDINATOR [employer] - Last Filed: 03/06/19 20:50> General Chief complaint: Urogenital-Female Stated complaint: states UTI Time Seen by Provider: 03/06/19 19:12 Source: patient Mode of arrival: ambulatory Limitations: no limitations History of Present Illness HPI Narrative: The patient is a 64-year-old female renal failure, on dialysis, who presents with a chief complaint of a urinary tract infection. She just finished a week of Cipro 250 mg b.i.d. and feels as though she still has symptoms. She attributes her urinary tract infection to slipping and landing on a wet toilet at a concert last week. She complains of dysuria urgency and frequency. She denies any fevers nausea vomiting or diarrhea. She denies any sexual activity. She denies any possibility of sexually transmitted infection. She denies any vaginal discharge. Related Data Home Medications Medication Instructions Recorded Confirmed aspirin 81 mg PO QDAY #0 03/19/16 multivitamin [Multiple Vitamins] 1 tab PO DAILY #0 tab 03/19/16 03/06/19 omega [id number]-fish oil [Fish Oil] 1,000 mg PO DAILY #0 03/19/16 Basaglar KwikPen U-100 Insulin 30 units SUBCUT QPM #0 10/10/17 03/06/19 amlodipine 10 mg PO HS #0 10/10/17 bupropion HCl [Wellbutrin SR] 150 mg PO BID #0 10/10/17 03/06/19 glimepiride [Amaryl] 8 mg PO DAILY #0 10/10/17 03/06/19 levothyroxine 1 tab PO DAILY #0 10/10/17 03/06/19 oxycodone 5 - 7.5 mg PO DAILY #0 10/10/17 03/06/19 ascorbic acid (vitamin C) [Vitamin 1,000 mg PO DAILY 03/06/19 03/06/19 C] ciprofloxacin HCl 250 mg PO [id number] 03/06/19 03/06/19 furosemide 20 mg PO DAILY 03/06/19 03/06/19 hydroxyzine HCl 25 - 50 mg PO QID PRN 03/06/19 03/06/19 rosuvastatin 10 mg PO DAILY 03/06/19 03/06/19 sevelamer carbonate 800 mg PO TID 03/06/19 03/06/19 terbinafine HCl 250 mg PO TUTHSA 03/06/19 03/06/19 Previous Rx's Medication Instructions Recorded cephalexin 500 mg PO BID #20 cap 03/06/19 Allergies Allergy/AdvReac Type Severity Reaction Status Date / Time No Known Drug Allergies Allergy Verified 10/08/18 18:59 Review of Systems <SARITHA Tran - Last Filed: 03/06/19 20:50> Review of Systems GENERAL: Denies chills, fatigue, malaise, fever, sweats. HEENT: Denies sinus pain, ear pain, sore throat, difficulty swallowing, dizziness. RESPIRATORY: Denies dyspnea, cough, wheezing, hemoptysis, sputum. CARDIOVASCULAR: Denies chest pain, palpitations, orthopnea, edema, GASTROINTESTINAL: Denies nausea, vomiting, abdominal pain, diarrhea, constipation, melena. : See HPI MUSCULOSKELETAL: denies weakness, joint pain, or bony pain SKIN: Denies rash, skin lesions, or other NEUROLOGIC: Denies weakness, headache, numbness, change in speech, confusion, seizures, incoordination. PSYCHIATRIC: No concerning psychosocial issues. 12 point review of systems is negative except for those stated above PFSH <SARITHA Tran - Last Filed: 03/06/19 20:50> Medical History (Updated 03/06/19 @ 20:46 by SARITHA Tran) Dialysis patient (Acute) Family History Father CAD (coronary artery disease) [place] (myocardial infarction) Social History Smoking Status: Former smoker Social History Smoking Status: Former smoker Exam <SARITHA Tran - Last Filed: 03/06/19 20:50> Narrative Exam Narrative: GENERAL: This is a well-nourished, well-developed patient, no acute distress HEAD: Atraumatic. Normocephalic. No temporal or scalp tenderness. EYES: Pupils equal round and reactive. Extraocular motions intact. No scleral icterus. No injection or drainage. ENT: Nose without bleeding, purulent drainage or septal hematoma. Throat without erythema, tonsillar hypertrophy or exudate. Uvula midline. Airway patent. NECK: Trachea midline. No JVD or lymphadenopathy. Supple, nontender, no meningeal signs. CARDIOVASCULAR: Regular rate and rhythm RESPIRATORY: Clear to auscultation. Breath sounds equal bilaterally. No wheezes, rales, or rhonchi. No cough. No increased respiratory effort. GASTROINTESTINAL: Abdomen soft, non-tender, nondistended. No hepato-splenomegaly, or palpable masses. No guarding. Active bowel sounds all 4 quadrants. EXTREMITIES: No clubbing, cyanosis, or edema. No joint tenderness, effusion, or edema noted. BACK: Nontender without deformity or crepitance. No flank tenderness. NEURO: AOx3. SKIN: No rash or erythema. Initial Vital Signs Initial Vital Signs: Vital Signs Temperature 98.9 F 03/06/19 17:39 Pulse Rate 71 03/06/19 17:39 Respiratory Rate 20 03/06/19 17:39 Blood Pressure 135/67 03/06/19 17:39 Pulse Oximetry 96 03/06/19 17:39 <Alysha Arrieta DO - Last Filed: 03/18/19 09:13> Initial Vital Signs Initial Vital Signs: Vital Signs Temperature 98.9 F 03/06/19 17:39 Pulse Rate 71 03/06/19 17:39 Respiratory Rate 20 03/06/19 17:39 Blood Pressure 135/67 03/06/19 17:39 Pulse Oximetry 96 03/06/19 17:39 Course <CORTNEY Tran-BC - Last Filed: 03/06/19 20:50> Orders Ordered: Discontinued Medications Cephalexin HCl (Keflex) 500 mg PO NOW ONE Stop: 03/06/19 19:48 Last Admin: 03/06/19 19:54 Dose: 500 mg Vital Signs - 8 hr 03/06/19 17:39 03/06/19 19:29 03/06/19 20:00 Temperature 98.9 F Pulse Rate 71 64 63 Respiratory Rate 20 18 17 Blood Pressure 135/67 Blood Pressure [Right Arm] 118/50 L 128/56 L Pulse Oximetry 96 95 100 03/06/19 20:27 Temperature Pulse Rate Respiratory Rate Blood Pressure 128/56 L Blood Pressure [Right Arm] Pulse Oximetry 99 <Alysha Arrieta DO - Last Filed: 03/18/19 09:13> Orders Ordered: Discontinued Medications Cephalexin HCl (Keflex) 500 mg PO NOW ONE Stop: 03/06/19 19:48 Last Admin: 03/06/19 19:54 Dose: 500 mg Vital Signs - 8 hr 03/06/19 17:39 03/06/19 19:29 03/06/19 20:00 Temperature 98.9 F Pulse Rate 71 64 63 Respiratory Rate 20 18 17 Blood Pressure 135/67 Blood Pressure [Right Arm] 118/50 L 128/56 L Pulse Oximetry 96 95 100 03/06/19 20:27 Temperature Pulse Rate Respiratory Rate Blood Pressure 128/56 L Blood Pressure [Right Arm] Pulse Oximetry 99 MDM - Female Genitourinary <CORTNEY Tran-BC - Last Filed: 03/06/19 20:50> Lab Data Lab Results 03/06/19 Range/Units 17:45 Urine Color Yellow Urine Appearance Cloudy Urine pH 7.0 (4.5-8.0) Ur Specific [place] 1.015 (1.000-1.035) Urine Protein 2+ H (Negative) Urine Glucose (UA) Negative (Negative) g/dL Urine Ketones Negative (NEGATIVE) Urine Occult Blood 2+ H (Negative) Urine Nitrate Negative (Negative) Urine Bilirubin Negative (NEGATIVE) Urine Urobilinogen 0.2 (0.2) E.U./dL Ur Leukocyte Esterase 2+ H (NEGATIVE) Urine RBC 10-30/hpf H (0-5/HPF) Urine WBC >100/hpf H (0-5/HPF) Ur Squamous Epith Cells 0-1 /hpf (0-5/HPF) Urine Bacteria Many (>30) H (None) Ur Culture Indicated? Specimen cultured MDM Narrative Medical decision making narrative: The patient is a 64-year-old female who presents with dysuria urgency frequency. Of note she is on dialysis. She discharge finished a short course of this Cipro but still has symptoms. She has leukocyte esterase, blood and bacteria in her urine. Thus I will treat her with Keflex according to hemodialysis dosing as per up-to-date. She is afebrile, not tachycardic and is tolerating oral food and fluid well at this point, so she is hemodynamically stable. I discussed at length that she should follow up with her flamer sealer tomorrow regarding medication dosing and schedule. Patient states understanding and has no questions or concerns upon discharge. I discussed coming back for any acute concerns such as high fever etc encourage PCP follow-up as well. <Alysha Arrieta, - Last Filed: 03/18/19 09:13> Lab Data Lab Results 03/06/19 Range/Units 17:45 Urine Color Yellow Urine Appearance Cloudy Urine pH 7.0 (4.5-8.0) Ur Specific [place] 1.015 (1.000-1.035) Urine Protein 2+ H (Negative) Urine Glucose (UA) Negative (Negative) g/dL Urine Ketones Negative (NEGATIVE) Urine Occult Blood 2+ H (Negative) Urine Nitrate Negative (Negative) Urine Bilirubin Negative (NEGATIVE) Urine Urobilinogen 0.2 (0.2) E.U./dL Ur Leukocyte Esterase 2+ H (NEGATIVE) Urine RBC 10-30/hpf H (0-5/HPF) Urine WBC >100/hpf H (0-5/HPF) Ur Squamous Epith Cells 0-1 /hpf (0-5/HPF) Urine Bacteria Many (>30) H (None) Ur Culture Indicated? Specimen cultured Discharge Plan Departure Patient Disposition: Home Clinical Impression: UTI (urinary tract infection) Qualifiers: Urinary tract infection type: site unspecified Hematuria presence: with hematuria Qualified Code(s): N39.0 - Urinary tract infection, site not specified Discharge Date/Time: 03/06/19 20:27 Interventions: ED Discharge Assessment Last Done: 03/06/19 20:27 Instructions: DI for Urinary Tract Infection (UTI) Activity Restrictions/Additional Instructions: Your urine indicates a urinary tract infection. A urine culture is pending at this point time. We will call you in 48-72 hours if this antibiotic is inappropriate. Please monitor for fever, inability keep down fluids etc I have started you on cephalexin which is an antibiotic. Please touch base with her PCP as well as her flamer sealer. Please call your flamer sealer in the morning and discussed her new medication and why we are giving it and make sure that they are okay with our plan. Prescriptions: New cephalexin 500 mg capsule 500 mg PO BID Qty: 20 RF: 0 No Action aspirin 81 MG tablet,delayed release (DR/EC) 81 mg PO QDAY Qty: 0 RF: 0 multivitamin [Multiple Vitamins] 1 EACH tablet 1 tab PO DAILY Qty: 0 RF: 0 omega 8-[id number]-gga-fish oil [Fish Oil] 1,000 mg (120 mg-180 mg) Capsule 1,000 mg PO DAILY Qty: 0 RF: 0 bupropion HCl [Wellbutrin SR] 150 MG tablet extended release 12 hr 150 mg PO BID Qty: 0 RF: 0 Basaglar KwikPen U-100 Insulin 100 UNIT/1 ML insulin pen 30 units subcut QPM Qty: 0 RF: 0 levothyroxine 200 MCG tablet 1 tab PO DAILY Qty: 0 RF: 0 oxycodone 5 MG tablet 5 - 7.5 mg PO DAILY Qty: 0 RF: 0 amlodipine 10 MG tablet 10 mg PO HS Qty: 0 RF: 0 glimepiride [Amaryl] 4 MG tablet 8 mg PO DAILY Qty: 0 RF: 0 ascorbic acid (vitamin C) [Vitamin C] 1,000 mg tablet extended release 1,000 mg PO DAILY RF: 0 ciprofloxacin HCl 250 mg tablet 250 mg PO [id number] RF: 0 terbinafine HCl 250 mg tablet 250 mg PO TUTHSA RF: 0 hydroxyzine HCl 25 mg tablet 25 - 50 mg PO QID PRN (Reason: Anxiety) RF: 0 furosemide 20 mg tablet 20 mg PO DAILY RF: 0 rosuvastatin 10 mg tablet 10 mg PO DAILY RF: 0 sevelamer carbonate 800 mg tablet 800 mg PO TID RF: 0 Referrals: Penny Lombardi, SUPERVISOR [employer]ESSING [Primary Care Provider] - <Alysha Arrieta DO - Last Filed: 03/18/19 09:13> Cosign ED Attending Cosignature Attestation: I was immediately available in the department for consultation, case reviewed along with dosing for HD patient through multiple sources. Patient to follow up with flamer sealer to verify dosing schedule. This documentation has been reviewed and I agree with assessment and plan. Supervised by Alysha Arrieta DO
--- NOTE | 2019-03-06 19:27 | ED_ITS ---
HPI - Female Genitourinary <Alysha Upton, HANDY WORKER-BC - Last Filed: 03/06/19 20:50> General Chief complaint: Urogenital-Female Stated complaint: states UTI Time Seen by Provider: 03/06/19 19:12 Source: patient Mode of arrival: ambulatory Limitations: no limitations History of Present Illness HPI Narrative: The patient is a 64-year-old female renal failure, on dialysis, who presents with a chief complaint of a urinary tract infection. She just finished a week of Cipro 250 mg b.i.d. and feels as though she still has symptoms. She attributes her urinary tract infection to slipping and landing on a wet toilet at a concert last week. She complains of dysuria urgency and frequency. She denies any fevers nausea vomiting or diarrhea. She denies any sexual activity. She denies any possibility of sexually transmitted infection. She denies any vaginal discharge. Related Data Home Medications Medication Instructions Recorded Confirmed aspirin 81 mg PO QDAY #0 03/19/16 multivitamin [Multiple Vitamins] 1 tab PO DAILY #0 tab 03/19/16 03/06/19 omega 9-sfb-mlf-fish oil [Fish Oil] 1,000 mg PO DAILY #0 03/19/16 Basaglar KwikPen U-100 Insulin 30 units SUBCUT QPM #0 10/10/17 03/06/19 amlodipine 10 mg PO HS #0 10/10/17 bupropion HCl [Wellbutrin SR] 150 mg PO BID #0 10/10/17 03/06/19 glimepiride [Amaryl] 8 mg PO DAILY #0 10/10/17 03/06/19 levothyroxine 1 tab PO DAILY #0 10/10/17 03/06/19 oxycodone 5 - 7.5 mg PO DAILY #0 10/10/17 03/06/19 ascorbic acid (vitamin C) [Vitamin 1,000 mg PO DAILY 03/06/19 03/06/19 C] ciprofloxacin HCl 250 mg PO [id number] 03/06/19 03/06/19 furosemide 20 mg PO DAILY 03/06/19 03/06/19 hydroxyzine HCl 25 - 50 mg PO QID PRN 03/06/19 03/06/19 rosuvastatin 10 mg PO DAILY 03/06/19 03/06/19 sevelamer carbonate 800 mg PO TID 03/06/19 03/06/19 terbinafine HCl 250 mg PO TUTHSA 03/06/19 03/06/19 Previous Rx's Medication Instructions Recorded cephalexin 500 mg PO BID #20 cap 03/06/19 Allergies Allergy/AdvReac Type Severity Reaction Status Date / Time No Known Drug Allergies Allergy Verified 10/08/18 18:59 Review of Systems <SARITHA Tran - Last Filed: 03/06/19 20:50> Review of Systems GENERAL: Denies chills, fatigue, malaise, fever, sweats. HEENT: Denies sinus pain, ear pain, sore throat, difficulty swallowing, dizziness. RESPIRATORY: Denies dyspnea, cough, wheezing, hemoptysis, sputum. CARDIOVASCULAR: Denies chest pain, palpitations, orthopnea, edema, GASTROINTESTINAL: Denies nausea, vomiting, abdominal pain, diarrhea, constipation, melena. : See HPI MUSCULOSKELETAL: denies weakness, joint pain, or bony pain SKIN: Denies rash, skin lesions, or other NEUROLOGIC: Denies weakness, headache, numbness, change in speech, confusion, seizures, incoordination. PSYCHIATRIC: No concerning psychosocial issues. 12 point review of systems is negative except for those stated above PFSH <SARITHA Tran - Last Filed: 03/06/19 20:50> Medical History (Updated 03/06/19 @ 20:46 by SARITHA Tran) Dialysis patient (Acute) Family History Father CAD (coronary artery disease) [place] (myocardial infarction) Social History Smoking Status: Former smoker Social History Smoking Status: Former smoker Exam <SARITHA Tran - Last Filed: 03/06/19 20:50> Narrative Exam Narrative: GENERAL: This is a well-nourished, well-developed patient, no acute distress HEAD: Atraumatic. Normocephalic. No temporal or scalp tenderness. EYES: Pupils equal round and reactive. Extraocular motions intact. No scleral icterus. No injection or drainage. ENT: Nose without bleeding, purulent drainage or septal hematoma. Throat without erythema, tonsillar hypertrophy or exudate. Uvula midline. Airway patent. NECK: Trachea midline. No JVD or lymphadenopathy. Supple, nontender, no meningeal signs. CARDIOVASCULAR: Regular rate and rhythm RESPIRATORY: Clear to auscultation. Breath sounds equal bilaterally. No wheezes, rales, or rhonchi. No cough. No increased respiratory effort. GASTROINTESTINAL: Abdomen soft, non-tender, nondistended. No hepato- splenomegaly, or palpable masses. No guarding. Active bowel sounds all 4 quadrants. EXTREMITIES: No clubbing, cyanosis, or edema. No joint tenderness, effusion, or edema noted. BACK: Nontender without deformity or crepitance. No flank tenderness. NEURO: AOx3. SKIN: No rash or erythema. Initial Vital Signs Initial Vital Signs: Vital Signs Temperature 98.9 F 03/06/19 17:39 Pulse Rate 71 03/06/19 17:39 Respiratory Rate 20 03/06/19 17:39 Blood Pressure 135/67 03/06/19 17:39 Pulse Oximetry 96 03/06/19 17:39 <Alysha Arrieta DO - Last Filed: 03/18/19 09:13> Initial Vital Signs Initial Vital Signs: Vital Signs Temperature 98.9 F 03/06/19 17:39 Pulse Rate 71 03/06/19 17:39 Respiratory Rate 20 03/06/19 17:39 Blood Pressure 135/67 03/06/19 17:39 Pulse Oximetry 96 03/06/19 17:39 Course <CORTNEY Tran-BC - Last Filed: 03/06/19 20:50> Orders Ordered: Discontinued Medications Cephalexin HCl (Keflex) 500 mg PO NOW ONE Stop: 03/06/19 19:48 Last Admin: 03/06/19 19:54 Dose: 500 mg Vital Signs - 8 hr 03/06/19 17:39 03/06/19 19:29 03/06/19 20:00 Temperature 98.9 F Pulse Rate 71 64 63 Respiratory Rate 20 18 17 Blood Pressure 135/67 Blood Pressure [Right Arm] 118/50 L 128/56 L Pulse Oximetry 96 95 100 03/06/19 20:27 Temperature Pulse Rate Respiratory Rate Blood Pressure 128/56 L Blood Pressure [Right Arm] Pulse Oximetry 99 <Alysha Arrieta DO - Last Filed: 03/18/19 09:13> Orders Ordered: Discontinued Medications Cephalexin HCl (Keflex) 500 mg PO NOW ONE Stop: 03/06/19 19:48 Last Admin: 03/06/19 19:54 Dose: 500 mg Vital Signs - 8 hr 03/06/19 17:39 03/06/19 19:29 03/06/19 20:00 Temperature 98.9 F Pulse Rate 71 64 63 Respiratory Rate 20 18 17 Blood Pressure 135/67 Blood Pressure [Right Arm] 118/50 L 128/56 L Pulse Oximetry 96 95 100 03/06/19 20:27 Temperature Pulse Rate Respiratory Rate Blood Pressure 128/56 L Blood Pressure [Right Arm] Pulse Oximetry 99 MDM - Female Genitourinary <CORTNEY Tran-BC - Last Filed: 03/06/19 20:50> Lab Data Lab Results 03/06/19 Range/Units 17:45 Urine Color Yellow Urine Appearance Cloudy Urine pH 7.0 (4.5-8.0) Ur Specific [place] 1.015 (1.000-1.035) Urine Protein 2+ H (Negative) Urine Glucose (UA) Negative (Negative) g/dL Urine Ketones Negative (NEGATIVE) Urine Occult Blood 2+ H (Negative) Urine Nitrate Negative (Negative) Urine Bilirubin Negative (NEGATIVE) Urine Urobilinogen 0.2 (0.2) E.U./dL Ur Leukocyte Esterase 2+ H (NEGATIVE) Urine RBC 10-30/hpf H (0-5/HPF) Urine WBC >100/hpf H (0-5/HPF) Ur Squamous Epith Cells 0-1 /hpf (0-5/HPF) Urine Bacteria Many (>30) H (None) Ur Culture Indicated? Specimen cultured MDM Narrative Medical decision making narrative: The patient is a 64-year-old female who presents with dysuria urgency frequency. Of note she is on dialysis. She discharge finished a short course of this Cipro but still has symptoms. She has leukocyte esterase, blood and bacteria in her urine. Thus I will treat her with Keflex according to hemodialysis dosing as per up-to-date. She is afebrile, not tachycardic and is tolerating oral food and fluid well at this point, so she is hemodynamically stable. I discussed at length that she should follow up with her insulation board head saw operator tomorrow regarding medication dosing and schedule. Patient states understanding and has no questions or concerns upon discharge. I discussed coming back for any acute concerns such as high fever etc encourage PCP follow-up as well. <Alysha Arrieta, - Last Filed: 03/18/19 09:13> Lab Data Lab Results 03/06/19 Range/Units 17:45 Urine Color Yellow Urine Appearance Cloudy Urine pH 7.0 (4.5-8.0) Ur Specific [place] 1.015 (1.000-1.035) Urine Protein 2+ H (Negative) Urine Glucose (UA) Negative (Negative) g/dL Urine Ketones Negative (NEGATIVE) Urine Occult Blood 2+ H (Negative) Urine Nitrate Negative (Negative) Urine Bilirubin Negative (NEGATIVE) Urine Urobilinogen 0.2 (0.2) E.U./dL Ur Leukocyte Esterase 2+ H (NEGATIVE) Urine RBC 10-30/hpf H (0-5/HPF) Urine WBC >100/hpf H (0-5/HPF) Ur Squamous Epith Cells 0-1 /hpf (0-5/HPF) Urine Bacteria Many (>30) H (None) Ur Culture Indicated? Specimen cultured Discharge Plan Departure Patient Disposition: Home Clinical Impression: UTI (urinary tract infection) Qualifiers: Urinary tract infection type: site unspecified Hematuria presence: with hematuria Qualified Code(s): N39.0 - Urinary tract infection, site not specified Discharge Date/Time: 03/06/19 20:27 Interventions: ED Discharge Assessment Last Done: 03/06/19 20:27 Instructions: DI for Urinary Tract Infection (UTI) Activity Restrictions/Additional Instructions: Your urine indicates a urinary tract infection. A urine culture is pending at this point time. We will call you in 48-72 hours if this antibiotic is inappropriate. Please monitor for fever, inability keep down fluids etc I have started you on cephalexin which is an antibiotic. Please touch base with her PCP as well as her insulation board head saw operator. Please call your insulation board head saw operator in the morning and discussed her new medication and why we are giving it and make sure that they are okay with our plan. Prescriptions: New cephalexin 500 mg capsule 500 mg PO BID Qty: 20 RF: 0 No Action aspirin 81 MG tablet,delayed release (DR/EC) 81 mg PO QDAY Qty: 0 RF: 0 multivitamin [Multiple Vitamins] 1 EACH tablet 1 tab PO DAILY Qty: 0 RF: 0 omega 8-zbb-xqs-fish oil [Fish Oil] 1,000 mg (120 mg-180 mg) Capsule 1,000 mg PO DAILY Qty: 0 RF: 0 bupropion HCl [Wellbutrin SR] 150 MG tablet extended release 12 hr 150 mg PO BID Qty: 0 RF: 0 Basaglar KwikPen U-100 Insulin 100 UNIT/1 ML insulin pen 30 units subcut QPM Qty: 0 RF: 0 levothyroxine 200 MCG tablet 1 tab PO DAILY Qty: 0 RF: 0 oxycodone 5 MG tablet 5 - 7.5 mg PO DAILY Qty: 0 RF: 0 amlodipine 10 MG tablet 10 mg PO HS Qty: 0 RF: 0 glimepiride [Amaryl] 4 MG tablet 8 mg PO DAILY Qty: 0 RF: 0 ascorbic acid (vitamin C) [Vitamin C] 1,000 mg tablet extended release 1,000 mg PO DAILY RF: 0 ciprofloxacin HCl 250 mg tablet 250 mg PO [id number] RF: 0 terbinafine HCl 250 mg tablet 250 mg PO TUTHSA RF: 0 hydroxyzine HCl 25 mg tablet 25 - 50 mg PO QID PRN (Reason: Anxiety) RF: 0 furosemide 20 mg tablet 20 mg PO DAILY RF: 0 rosuvastatin 10 mg tablet 10 mg PO DAILY RF: 0 sevelamer carbonate 800 mg tablet 800 mg PO TID RF: 0 Referrals: Penny Lombardi, [employer] [Primary Care Provider] - <Alysha Arrieta DO - Last Filed: 03/18/19 09:13> Cosign ED Attending Cosignature Attestation: I was immediately available in the department for consultation, case reviewed along with dosing for HD patient through multiple sources. Patient to follow up with insulation board head saw operator to verify dosing schedule. This documentation has been reviewed and I agree with assessment and plan. Supervised by Alysha Arrieta DO
[2019-03-06 19:29] VITALS: BP 118/50; PULSE 64; RESP 18; O2SAT 95
[2019-03-06] MEDS: cephALEXin 250 MG CAPSULE 500 MG PO (19:54)
[2019-03-06 20:00] VITALS: BP 128/56; PULSE 63; RESP 17; O2SAT 100
[2019-03-06 20:27] VITALS: BP 128/56; O2SAT 99
== END 2019-03-06 20:27 | disposition home or self-care (01) ==
PROVIDERS: Emergency Medicine; Emergency Provider Nurse Practitioner Family; PCP Nurse Practitioner
DX: N39.0 Urinary tract infection, site not specified (principal)
CPT/HCPCS: 81001; 87077; 87086; 87186; 99282; 99283

== ENCOUNTER 2019-04-06 01:20 | Emergency (ER) | payer MEDICARE, MEDICAID, SELFPAY ==
[2019-04-06 01:23] VITALS: BP 135/59; PULSE 78; RESP 20; TEMP 37.1; O2SAT 99; BMI 39.2
--- NOTE | 2019-04-06 01:32 | ED.FEMALEGU ---
HPI - Female Genitourinary General Chief complaint: Urogenital-Female Stated complaint: UTI Time Seen by Provider: 04/06/19 01:26 Source: patient Mode of arrival: ambulatory Limitations: no limitations History of Present Illness HPI Narrative: 64-year-old female former smoker end-stage kidney patient receives dialysis but still makes urine presents with a chief complaint of dysuria, frequency, urgency and foul-smelling urine for the past few days. She admits to a subjective fever but no chills. She has mild back pain. She denies nausea, vomiting or diarrhea. MD Complaint: dysuria and UTI Onset (ago): day(s) Location: suprapubic Severity: mild Quality: Aching, Burning and Cramping Duration: constant Relieving factors: none Exacerbating factors: urination Urinary symptoms: Dysuria, Foul Smelling Urine and Urgency Related Data Home Medications Medication Instructions Recorded Confirmed aspirin 81 mg PO QDAY #0 03/19/16 multivitamin [Multiple Vitamins] 1 tab PO DAILY #0 tab 03/19/16 03/06/19 omega 0-bsg-eir-fish oil [Fish Oil] 1,000 mg PO DAILY #0 03/19/16 Basaglar KwikPen U-100 Insulin 30 units SUBCUT QPM #0 10/10/17 03/06/19 amlodipine 10 mg PO HS #0 10/10/17 bupropion HCl [Wellbutrin SR] 150 mg PO BID #0 10/10/17 03/06/19 glimepiride [Amaryl] 8 mg PO DAILY #0 10/10/17 03/06/19 levothyroxine 1 tab PO DAILY #0 10/10/17 03/06/19 oxycodone 5 - 7.5 mg PO DAILY #0 10/10/17 03/06/19 ascorbic acid (vitamin C) [Vitamin 1,000 mg PO DAILY 03/06/19 03/06/19 C] ciprofloxacin HCl 250 mg PO [id number] 03/06/19 03/06/19 furosemide 20 mg PO DAILY 03/06/19 03/06/19 hydroxyzine HCl 25 - 50 mg PO QID PRN 03/06/19 03/06/19 rosuvastatin 10 mg PO DAILY 03/06/19 03/06/19 sevelamer carbonate 800 mg PO TID 03/06/19 03/06/19 terbinafine HCl 250 mg PO TUTHSA 03/06/19 03/06/19 Previous Rx's Medication Instructions Recorded cephalexin 500 mg PO BID #20 cap 03/06/19 cephalexin [Keflex] 500 mg PO QID 10 Days #40 cap 04/06/19 Allergies Allergy/AdvReac Type Severity Reaction Status Date / Time No Known Drug Allergies Allergy Verified 10/08/18 18:59 Review of Systems Constitutional Constitutional: Denies chills, Denies fatigue, Denies fever(s), Denies frequent falls, Denies lethargy and Denies weakness Eyes Eyes: Denies change in vision, Denies eye discharge, Denies irritation and Denies loss of vision ENT Ears, Nose, Mouth, and Throat: Denies change in voice, Denies dizziness, Denies neck pain, Denies sore throat and Denies throat swelling Cardiovascular Cardiovascular: Denies chest pain, Denies irregular heart rhythm, Denies lightheadedness, Denies palpitations, Denies dyspnea, Denies dyspnea on exertion and Denies orthopnea Respiratory Respiratory: Denies cough, Denies dyspnea, Denies dyspnea on exertion and Denies wheezing Gastrointestinal Gastrointestinal: Denies abdominal pain, Denies change in bowel habits, Denies diarrhea, Denies nausea and Denies vomiting Genitourinary Genitourinary: Denies hematuria, Reports urinary frequency, Reports dysuria, Denies flank pain, Denies urinary incontinence and Denies urinary urgency Musculoskeletal Musculoskeletal: Denies back pain, Denies muscle weakness, Denies neck pain, Denies numbness and Denies tingling Integumentary/Breasts Skin/Breast: Denies pruritus, Denies erythema, Denies rash and Denies wounds Neurologic Neurologic: Denies behavioral changes, Denies confusion, Denies dizziness, Denies frequent falls, Denies loss of vision, Denies numbness, Denies tingling and Denies weakness Psychiatric Psychiatric: Denies anxiety, Denies behavioral changes, Denies confusion, Denies depression, Denies homicidal ideation and Denies suicidal ideation Endocrine Endocrine: Denies fatigue, Denies flushing and Denies palpitations Hematologic/Lymphatic Hematologic/Lymphatic: Denies easy bruising Allergic/Immunologic Allergic/Immunologic: Denies urticaria, Denies throat swelling and Denies wheezing [facility] Medical History Dialysis patient (Acute) Family History Father CAD (coronary artery disease) [place] (myocardial infarction) Social History Smoking Status: Former smoker Family History Father CAD (coronary artery disease) [place] (myocardial infarction) Social History Smoking Status: Former smoker Exam Narrative Exam Narrative: GEN: AOx3 and in mild distress EYES: Pupils are equal, round, and reactive to light and accommodation. Extraoccular muscles are intact bilaterally. There is no subconjunctival hemorrhage or exudate. CHEST: Lungs are clear to auscultation bilaterally and free of wheezes, rales, or rhonchi. Heart rate is regular rhythm, there are no murmurs, clicks, rubs, or gallops. There is no chest wall tenderness. ABD: Abdomen is soft and nontender. There is no guarding or rebound. Bowel sounds are normal in all 4 quadrants. There is no mass or organomegaly. EXT: Full painless ROM of all extremities with no loss of sensation or strength. SKIN: Warm, pink, and dry. No erythema or rash Initial Vital Signs Initial Vital Signs: Vital Signs Temperature 98.8 F 04/06/19 01:23 Pulse Rate 78 04/06/19 01:23 Respiratory Rate 20 04/06/19 01:23 Blood Pressure 135/59 L 04/06/19 01:23 Pulse Oximetry 99 04/06/19 01:23 Course Orders Ordered: ED Orders 04/06/19 01:25 Urinalysis and Microscopic Stat Urine Culture Stat Discontinued Medications Cefazolin Sodium (Keflex 250 Mg Prepack) 1 bottle MISC SEEINSTR ONE Stop: 04/06/19 01:33 Last Admin: 04/06/19 01:43 Dose: 1 prepack Documented by: CHASE Vital Signs Vital signs: Vital Signs - 8 hr 04/06/19 01:23 Temperature 98.8 F Pulse Rate 78 Respiratory Rate 20 Blood Pressure 135/59 L Pulse Oximetry 99 MDM - Female Genitourinary Lab Data Labs: Lab Results 04/06/19 Range/Units 01:25 Urine Color Yellow Urine Appearance Turbid Urine pH 7.5 (4.5-8.0) Ur Specific [place] 1.015 (1.000-1.035) Urine Protein 2+ H (Negative) Urine Glucose (UA) Negative (Negative) g/dL Urine Ketones Negative (NEGATIVE) Urine Occult Blood 3+ H (Negative) Urine Nitrate Negative (Negative) Urine Bilirubin Negative (NEGATIVE) Urine Urobilinogen 0.2 (0.2) E.U./dL Ur Leukocyte Esterase 3+ H (NEGATIVE) Urine RBC 1-5/hpf D (0-5/HPF) Urine WBC >100/hpf H (0-5/HPF) Ur Squamous Epith Cells 0-1 /hpf (0-5/HPF) Urine Bacteria Many (>30) H (None) Ur Culture Indicated? Specimen cultured Micro UA Comment . Discharge Plan Departure Patient Disposition: Home Clinical Impression: UTI (urinary tract infection) Qualifiers: Urinary tract infection type: acute cystitis Hematuria presence: without hematuria Qualified Code(s): N30.00 - Acute cystitis without hematuria Discharge Date/Time: 04/06/19 01:45 Instructions: DI for Urinary Tract Infection (UTI) Activity Restrictions/Additional Instructions: *You have been diagnosed with [acute urinary tract infection] *What to do: *Take medications as directed: Your prescription has been sent to the [facility] in [place] *Follow up with your primary care provider in 2-3 days, call for an appointment. Let them know you were seen in the Emergency Department and that we ask that you be seen in follow up *Return to ER if you should have any new, worsening or concerning symptoms Prescriptions: New cephalexin [Keflex] 500 mg capsule 500 mg PO QID 10 Days Qty: 40 RF: 0 No Action aspirin 81 MG tablet,delayed release (DR/EC) 81 mg PO QDAY Qty: 0 RF: 0 multivitamin [Multiple Vitamins] 1 EACH tablet 1 tab PO DAILY Qty: 0 RF: 0 omega 0-zkr-hkk-fish oil [Fish Oil] 1,000 mg (120 mg-180 mg) Capsule 1,000 mg PO DAILY Qty: 0 RF: 0 bupropion HCl [Wellbutrin SR] 150 MG tablet extended release 12 hr 150 mg PO BID Qty: 0 RF: 0 Basaglar KwikPen U-100 Insulin 100 UNIT/1 ML insulin pen 30 units subcut QPM Qty: 0 RF: 0 levothyroxine 200 MCG tablet 1 tab PO DAILY Qty: 0 RF: 0 oxycodone 5 MG tablet 5 - 7.5 mg PO DAILY Qty: 0 RF: 0 amlodipine 10 MG tablet 10 mg PO HS Qty: 0 RF: 0 glimepiride [Amaryl] 4 MG tablet 8 mg PO DAILY Qty: 0 RF: 0 ascorbic acid (vitamin C) [Vitamin C] 1,000 mg tablet extended release 1,000 mg PO DAILY RF: 0 ciprofloxacin HCl 250 mg tablet 250 mg PO [id number] RF: 0 terbinafine HCl 250 mg tablet 250 mg PO TUTHSA RF: 0 hydroxyzine HCl 25 mg tablet 25 - 50 mg PO QID PRN (Reason: Anxiety) RF: 0 furosemide 20 mg tablet 20 mg PO DAILY RF: 0 rosuvastatin 10 mg tablet 10 mg PO DAILY RF: 0 sevelamer carbonate 800 mg tablet 800 mg PO TID RF: 0 cephalexin 500 mg capsule 500 mg PO BID Qty: 20 RF: 0 Referrals: Penny Lombardi ARNP [Primary Care Provider] -
[2019-04-06] MEDS: cephALEXin 250 MG PREPACK 1 BOTTLE MISC (01:43)
[2019-04-06 01:48] LABS: Appearance Urine UA TURBID; Bilirubin Urine UA NEGATIVE (NEGATIVE); Color Urine UA YELLOW; Glucose Urine UA NEGATIVE (Negative); Ketones Urine UA NEGATIVE (NEGATIVE); Leukocyte Esterase Urine UA 3+ (NEGATIVE); Nitrite Urine UA NEGATIVE (Negative); Occult Blood Urine UA 3+ (Negative); Protein Urine UA 2+ (Negative); Specific Gravity Urine UA 1.015 (1.000-1.035); Urobilinogen Urine UA 0.2 E.U./dL (0.2)
[2019-04-06 01:50] LABS: RBC Urine 1-5/HPF (0-5/HPF); pH Urine UA 7.5 (4.5-8.0)
[2019-04-06 01:51] LABS: Bacteria Urine Many (>30); Squamous Epithelial Cell Urine 0-1 /HPF (0-5/HPF); WBC Urine >100/HPF (0-5/HPF)
[2019-04-06 01:52] LABS: Culture Indicated Urine Specimen Cultured
== END 2019-04-06 01:45 | disposition home or self-care (01) ==
LOC: ED 01:51
PROVIDERS: Emergency Provider Emergency Medicine; PCP Nurse Practitioner
DX: N30.00 Acute cystitis without hematuria (principal)
CPT/HCPCS: 81001; 87077; 87086; 87186; 99282; 99283

== ENCOUNTER 2019-04-28 00:49 | Emergency (ER) | payer MEDICARE, MEDICAID, SELFPAY ==
--- NOTE | 2019-04-28 00:53 | ED.FEMALEGU ---
HPI - Female Genitourinary General Chief complaint: Urogenital-Female Stated complaint: states she has uti Time Seen by Provider: 04/28/19 00:52 Source: patient Mode of arrival: Ambulatory Limitations: no limitations History of Present Illness HPI Narrative: 64-year-old female former smoker, with history of end-stage renal disease on dialysis presents with signs and symptoms consistent with urinary tract infection. She has these relatively frequently, most recently about a month ago with near pansensitivity noted on cultures. Her symptoms started just tonight which include frequency, dysuria and urgency. She denies any fever or chills. She denies any back pain, nausea or vomiting. MD Complaint: dysuria and UTI Onset (ago): hour(s) Location: suprapubic Severity: mild Quality: Aching and Burning Duration: constant Urinary symptoms: Difficulty Urinating, Dysuria, Foul Smelling Urine, Frequency and Urgency Associated symptoms: denies other symptoms Related Data Home Medications Medication Instructions Recorded Confirmed aspirin 81 mg PO QDAY #0 03/19/16 multivitamin [Multiple Vitamins] 1 tab PO DAILY #0 tab 03/19/16 03/06/19 omega 6-mdw-qpx-fish oil [Fish Oil] 1,000 mg PO DAILY #0 03/19/16 Basaglar KwikPen U-100 Insulin 30 units SUBCUT QPM #0 10/10/17 03/06/19 amlodipine 10 mg PO HS #0 10/10/17 bupropion HCl [Wellbutrin SR] 150 mg PO BID #0 10/10/17 03/06/19 glimepiride [Amaryl] 8 mg PO DAILY #0 10/10/17 03/06/19 levothyroxine 1 tab PO DAILY #0 10/10/17 03/06/19 oxycodone 5 - 7.5 mg PO DAILY #0 10/10/17 03/06/19 ascorbic acid (vitamin C) [Vitamin 1,000 mg PO DAILY 03/06/19 03/06/19 C] ciprofloxacin HCl 250 mg PO [id number] 03/06/19 03/06/19 furosemide 20 mg PO DAILY 03/06/19 03/06/19 hydroxyzine HCl 25 - 50 mg PO QID PRN 03/06/19 03/06/19 rosuvastatin 10 mg PO DAILY 03/06/19 03/06/19 sevelamer carbonate 800 mg PO TID 03/06/19 03/06/19 terbinafine HCl 250 mg PO TUTHSA 03/06/19 03/06/19 Previous Rx's Medication Instructions Recorded cephalexin 500 mg PO BID #20 cap 03/06/19 cephalexin [Keflex] 500 mg PO QID 10 Days #40 cap 04/06/19 sulfamethoxazole-trimethoprim 1 tab PO BID 10 Days #20 tab 04/28/19 [Bactrim DS] Allergies Allergy/AdvReac Type Severity Reaction Status Date / Time No Known Drug Allergies Allergy Verified 10/08/18 18:59 Review of Systems Constitutional Constitutional: Denies chills, Denies fatigue, Denies fever(s), Denies frequent falls, Denies lethargy and Denies weakness Eyes Eyes: Denies change in vision, Denies eye discharge, Denies irritation and Denies loss of vision ENT Ears, Nose, Mouth, and Throat: Denies change in voice, Denies dizziness, Denies neck pain, Denies sore throat and Denies throat swelling Cardiovascular Cardiovascular: Denies chest pain, Denies irregular heart rhythm, Denies lightheadedness, Denies palpitations, Denies dyspnea, Denies dyspnea on exertion and Denies orthopnea Respiratory Respiratory: Denies cough, Denies dyspnea, Denies dyspnea on exertion and Denies wheezing Gastrointestinal Gastrointestinal: Denies abdominal pain, Denies change in bowel habits, Denies diarrhea, Denies nausea and Denies vomiting Genitourinary Genitourinary: Reports urinary frequency, Denies flank pain, Denies urinary incontinence and Reports urinary urgency Musculoskeletal Musculoskeletal: Denies back pain, Denies muscle weakness, Denies neck pain, Denies numbness and Denies tingling Integumentary/Breasts Skin/Breast: Denies pruritus, Denies erythema, Denies rash and Denies wounds Neurologic Neurologic: Denies behavioral changes, Denies confusion, Denies dizziness, Denies frequent falls, Denies loss of vision, Denies numbness, Denies tingling and Denies weakness Psychiatric Psychiatric: Denies anxiety, Denies behavioral changes, Denies confusion, Denies depression, Denies homicidal ideation and Denies suicidal ideation Endocrine Endocrine: Denies fatigue, Denies flushing and Denies palpitations Hematologic/Lymphatic Hematologic/Lymphatic: Denies easy bruising Allergic/Immunologic Allergic/Immunologic: Denies urticaria, Denies throat swelling and Denies wheezing FORMERLY [facility], 1928–1983 Medical History Chicken pox (Resolved) Dialysis patient (Acute) Measles (Resolved ~1960) Mumps (Resolved ~1964) Surgical History Anesthesia (Resolved) Fistula (Resolved ~2017) History of appendectomy (Resolved ~1995) History of section (Resolved ~1986) History of tonsillectomy (Resolved ~1967) Family History (Updated 04/23/19 @ 20:54 by Alexus Collier) Father CAD (coronary artery disease) PA (myocardial infarction) Diabetes mellitus History of heart disease Hypertension Hyperlipidemia Mother Stroke Brother Diabetes mellitus Hyperlipidemia Hypertension Brother Diabetes mellitus Hypertension Sister Mental health problem Grandfather History of heart disease Grandmother Cancer Diabetes mellitus Grandfather History of heart disease Grandmother Cancer Diabetes mellitus Family/Other No problems noted. Social History Smoking Status: Former smoker Family History Father CAD (coronary artery disease) PA (myocardial infarction) Diabetes mellitus History of heart disease Hypertension Hyperlipidemia Mother Stroke Brother Diabetes mellitus Hyperlipidemia Hypertension Brother Diabetes mellitus Hypertension Sister Mental health problem Grandfather History of heart disease Grandmother Cancer Diabetes mellitus Grandfather History of heart disease Grandmother Cancer Diabetes mellitus Family/Other No problems noted. Social History Smoking Status: Former smoker Exam Narrative Exam Narrative: GEN: AOx3 and in mild distress, obese, resting comfortably, massaging her suprapubic region EYES: Pupils are equal, round, and reactive to light and accommodation. Extraoccular muscles are intact bilaterally. There is no subconjunctival hemorrhage or exudate. CHEST: Lungs are clear to auscultation bilaterally and free of wheezes, rales, or rhonchi. Heart rate is regular rhythm, there are no murmurs, clicks, rubs, or gallops. There is no chest wall tenderness. ABD: Abdomen is soft and mildly tender suprapubicly. There is no guarding or rebound. Bowel sounds are normal in all 4 quadrants. There is no mass or organomegaly. EXT: Full painless ROM of all extremities with no loss of sensation or strength. SKIN: Warm, pink, and dry. No erythema or rash Initial Vital Signs Initial Vital Signs: Vital Signs Temperature 98.1 F 04/28/19 01:01 Pulse Rate 71 04/28/19 01:01 Respiratory Rate 16 04/28/19 01:01 Blood Pressure 150/53 H 04/28/19 01:01 Pulse Oximetry 99 04/28/19 01:01 Course Orders Ordered: ED Orders 04/28/19 00:53 Urine Microscopic Stat Discontinued Medications Trimethoprim/Sulfamethoxazole (Bactrim Ds) 1 tab PO NOW ONE Stop: 04/28/19 01:10 Last Admin: 04/28/19 01:12 Dose: 1 tab Documented by: JENNIFER Vital Signs Vital signs: Vital Signs - 8 hr 04/28/19 01:01 Temperature 98.1 F Pulse Rate 71 Respiratory Rate 16 Blood Pressure 150/53 H Pulse Oximetry 99 MDM - Female Genitourinary Lab Data Labs: Urine Dip Bedside Urine Glucose Negative Bedside Urine Bilirubin - Negative Bedside Urine Ketone - Negative Urine Specific [place] 1.015 Bedside Urine Occult Blood +++ Bedside Urine pH 6.5 Bedside Urine Protein +++ 300 Bedside Urine Urobilinogen - Negative Bedside Urine Nitrite - Negative Bedside Urine Leukocytes +++ 500 Esterase Discharge Plan Departure Patient Disposition: Home Clinical Impression: Urinary tract infection Qualifiers: Urinary tract infection type: acute cystitis Hematuria presence: without hematuria Qualified Code(s): N30.00 - Acute cystitis without hematuria Discharge Date/Time: 04/28/19 01:19 Instructions: DI for Urinary Tract Infection (UTI) Activity Restrictions/Additional Instructions: *You have been diagnosed with [acute urinary tract infection] *What to do: *Take medications as directed: electronically transmitted to [facility]. *Follow up with your primary care provider in 2-3 days, call for an appointment. Let them know you were seen in the Emergency Department and that we ask that you be seen in follow up. Given the relative frequency of urinary tract infections it seems reasonable to consider urology referral, as a result I have included contact information for the group at [facility] *Return to ER if you should have any new, worsening or concerning symptoms Prescriptions: New sulfamethoxazole-trimethoprim [Bactrim DS] 800-160 mg tablet 1 tab PO BID 10 Days Qty: 20 RF: 0 No Action aspirin 81 MG tablet,delayed release (DR/EC) 81 mg PO QDAY Qty: 0 RF: 0 multivitamin [Multiple Vitamins] 1 EACH tablet 1 tab PO DAILY Qty: 0 RF: 0 omega 6-fqq-bqn-fish oil [Fish Oil] 1,000 mg (120 mg-180 mg) Capsule 1,000 mg PO DAILY Qty: 0 RF: 0 bupropion HCl [Wellbutrin SR] 150 MG tablet extended release 12 hr 150 mg PO BID Qty: 0 RF: 0 Basaglar KwikPen U-100 Insulin 100 UNIT/1 ML insulin pen 30 units subcut QPM Qty: 0 RF: 0 levothyroxine 200 MCG tablet 1 tab PO DAILY Qty: 0 RF: 0 oxycodone 5 MG tablet 5 - 7.5 mg PO DAILY Qty: 0 RF: 0 amlodipine 10 MG tablet 10 mg PO HS Qty: 0 RF: 0 glimepiride [Amaryl] 4 MG tablet 8 mg PO DAILY Qty: 0 RF: 0 ascorbic acid (vitamin C) [Vitamin C] 1,000 mg tablet extended release 1,000 mg PO DAILY RF: 0 ciprofloxacin HCl 250 mg tablet 250 mg PO [id number] RF: 0 terbinafine HCl 250 mg tablet 250 mg PO TUTHSA RF: 0 hydroxyzine HCl 25 mg tablet 25 - 50 mg PO QID PRN (Reason: Anxiety) RF: 0 furosemide 20 mg tablet 20 mg PO DAILY RF: 0 rosuvastatin 10 mg tablet 10 mg PO DAILY RF: 0 sevelamer carbonate 800 mg tablet 800 mg PO TID RF: 0 cephalexin 500 mg capsule 500 mg PO BID Qty: 20 RF: 0 cephalexin [Keflex] 500 mg capsule 500 mg PO QID 10 Days Qty: 40 RF: 0 Referrals: Penny Lombardi ARNP [Primary Care Provider] -
[2019-04-28 01:01] VITALS: BP 150/53; PULSE 71; RESP 16; TEMP 36.7; O2SAT 99; BMI 40.4
--- NOTE | 2019-04-28 01:07 | PC.NURSE ---
Patient has kidney dialysis and hx of UTI
[2019-04-28] MEDS: TRIMETH/SULFA 160/800 (DS) TABLET 1 TAB PO (01:12)
[2019-04-28 01:39] LABS: RBC Urine 10-30/HPF (0-5/HPF); WBC Urine >100/HPF (0-5/HPF)
[2019-04-28 01:40] LABS: Bacteria Urine Many (>30); Culture Indicated Urine Specimen Cultured
== END 2019-04-28 01:19 | disposition home or self-care (01) ==
LOC: ED 01:20
PROVIDERS: Emergency Provider Emergency Medicine; PCP Nurse Practitioner
DX: N30.00 Acute cystitis without hematuria (principal)
CPT/HCPCS: 81003; 81015; 87086; 99282; 99283

== ENCOUNTER → 2019-05-22 09:46 | Outpatient (CLI) | payer MEDICARE, MEDICAID, SELFPAY ==
--- NOTE | 2019-05-22 | DI.CT.S_ITS ---
PROCEDURE: CT ABDOMEN WO/W CON INDICATIONS: other specific disorders of kidney and ureter TECHNIQUE: Optional 5 mm thick noncontrast images acquired from the diaphragm to the iliac crests. After the administration of intravenous contrast, 5 mm thick images again acquired from the diaphragm to the iliac crests in the arterial and urographic phases. 5 mm thick coronal and sagittal reformats were then acquired. For radiation dose reduction, the following was used: automated exposure control, adjustment of mA and/or kV according to patient size. COMPARISON: Renal ultrasound 07/06/2017. MRI lumbar spine 02/14/2010. FINDINGS: Image quality: Excellent. Lung bases: Lung bases are clear. Heart size is normal. Genitourinary: Kidneys enhance symmetrical. 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 The left ureter is duplicated. No solid mass. Simple cyst at the superior pole of the left kidney. Right kidney superior pole punctate nonobstructing calculus, (2/36). No hydronephrosis. Other solid organs: Liver is normal in size and enhancement. Gallbladder is unremarkable. Biliary system is non dilated. Pancreas enhances normally. Spleen is normal in size and enhancement. No adrenal nodules. Peritoneum and bowel: Unenhanced bowel loops are normal in wall thickness and caliber. No free fluid or air. Nodes and vessels: No retroperitoneal or mesenteric adenopathy by size criteria. Aorta and inferior vena cava are normal in caliber. Moderate calcified atherosclerotic plaque. Bones: T11 and L2 heterogeneous lesions which are well-circumscribed but new since 2009. No vertebral body compression fractures. Mild anterolisthesis of L4 on L5. Miscellaneous: No ventral hernias. IMPRESSION: 1. No solid renal mass. No hydronephrosis. 2. Nonobstructing punctate right kidney stone. 3. Duplicated left kidney and ureter. 4. Indeterminate heterogeneous osseous lesions in the T11 and L2 vertebral bodies. These are new since the MRI from 2009 and don't have the typical appearance of a hemangioma. -MRI of the lumbar spine with contrast or whole-body bone scan could be performed for further evaluation. Dictated by: Mauricio Combs M.D. on 05/22/2019 at 11:32 Approved by: Mauricio Combs M.D. on 05/22/2019 at 11:56
== END ==
PROVIDERS: PCP Nurse Practitioner; Visit Provider Student in an Organized Health Care Education/Training Program
DX: N28.89 Other specified disorders of kidney and ureter (principal); Q63.0 Accessory kidney; Q62.5 Duplication of ureter
CPT/HCPCS: 74170; Q9967

== ENCOUNTER → 2019-08-19 17:12 | Outpatient (CLI) | payer MEDICARE, MEDICAID, SELFPAY ==
--- NOTE | 2019-08-19 | DI.MRI.S_ITS ---
PROCEDURE: MR LUMBAR SPINE WO/W CON INDICATIONS: LESIONS ON SPINE - abnormal CT TECHNIQUE: Noncontrast sagittal T1 spin echo and T2 fast spin echo, sagittal STIR, axial T1 and T2 fast spin echo through the lumbar spine. In cases with scoliosis, additional coronal T2 fast spin echo may be performed. After the administration of contrast, sagittal and axial T1 spin echo with fat saturation through the lumbar spine. COMPARISON: [facility], MR, LUMBAR SPINE W/O CONTRAST, 02/14/2010, 12:45. Merged With [facility], CT, CT ABDOMEN WO/W CON, 05/22/2019, 10:20. FINDINGS: Image quality: Excellent. Alignment and curvature: There is mild grade 1 anterolisthesis of the L4-L5 level. A Marrow: On this study, the previously seen abnormal lesion at L2 can again be seen within the anterior left aspect of this vertebral body. This demonstrates a mildly hyperintense appearance on T2-weighted imaging and STIR imaging, with a mildly hyperintense appearance on precontrast T1-weighted imaging and no significant enhancement can be seen. This lesion measures 2.2 x 2.2 x 1.7 cm. In retrospect, a similar-appearing, yet smaller lesion can be seen within the T2 vertebral body, as on series 11 image 8 of the 2010 MRI examination. Within the posterior aspect of the T12 level, there is a focus seen, as on series 2 image 5 and measures 16 x 13 x 12 mm that is hyperintense on T2-weighted imaging, minimally hyperintense on T1-weighted imaging and hyperintense on T2-weighted imaging. No significant abnormal enhancement can be seen. This is not significantly changed compared to 2010. (The previously seen T11 lesion is off of the [id number] of this study.) At the superior endplate of T12, there is a Schmorl's node seen, with STIR signal and enhancement, which is likely related to subacute Schmorl's node. Marrow is of normal overall signal. No acute vertebral body compression fractures. Spinal cord: Conus medullaris terminates at the L1 level. Visualized spinal cord demonstrates normal signal, without suspicious enhancement. Paraspinous soft tissues: No paravertebral masses or abnormal enhancement. T12-L1: Mild to moderate loss of disc height and disc signal are seen. Mild generalized disc bulge is seen. No significant neural foraminal or central canal narrowing can be seen. Minimal progression of degenerative change compared to 2010. L1-L2: No significant abnormality is seen. L2-L3: The disc height and disk signal are well-preserved. Mild generalized disc bulge is seen. [id number] facet hypertrophy is seen. Mild bilateral neural foraminal narrowing is seen. [id number] central canal narrowing is seen. These imaging findings have progressed compared to the prior study. L3-L4: The disc height is well-preserved. Loss of disc signal is seen at this level. Moderate generalized disc bulge is seen. Reactive marrow endplate changes are seen, which demonstrate mixed T1 weighted and T2-weighted signal, and are attributed to a combination of edema and fatty metaplasia (Modic type I and Modic type II changes). [id number] facet hypertrophy is seen. Moderate to severe bilateral neural foraminal narrowing is seen. Moderate central canal narrowing is seen. These imaging findings have progressed compared to the prior study. L4-L5: Mild loss of disc height is seen. Loss of disc signal is seen. There is a focal annular fissure seen posteriorly. Under prominent disc bulge is seen. Prominent facet hypertrophy is seen, with associated moderate hypertrophy of the ligament. There is moderate left-sided and moderate to severe right-sided neural foraminal narrowing seen. There is a degree of compression seen upon the exiting L4 nerve roots, right worse than left. Moderate to severe central canal narrowing is seen. These imaging findings have progressed compared to the prior study. L5-S1: Mild to moderate loss of disc height and disc signal can be seen. Moderate disc bulge is seen, which is eccentric to the right side. Moderate to severe bilateral neural foraminal narrowing is seen. There is mild associated compression upon the exiting nerve roots. These imaging findings have progressed compared to the prior study. 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 Multiple levels of lumbar spine degenerative change are seen, which have progressed to 2010. Dictated by: William Zepeda M.D. on 08/20/2019 at 8:39 Approved by: William Zepeda M.D. on 08/20/2019 at 9:38
== END ==
PROVIDERS: PCP Nurse Practitioner; Visit Provider Student in an Organized Health Care Education/Training Program
DX: M89.9 Disorder of bone, unspecified (principal); R93.7 Abnormal findings on diagnostic imaging of other parts of musculoskeletal system; M47.816 Spondylosis without myelopathy or radiculopathy, lumbar region
CPT/HCPCS: 72158; A9579

== ENCOUNTER 2019-08-19 18:27 | Emergency (ER) | payer MEDICARE, MEDICAID, SELFPAY ==
[2019-08-19 18:32] VITALS: BP 142/56; PULSE 72; RESP 18; TEMP 36.9; O2SAT 99; BMI 39.4
[2019-08-19 18:57] LABS: Amorphous Sediment Urine 1+; Bacteria Urine Many (>30); Culture Indicated Urine Specimen Cultured; Mucus Urine 1+ (Negative); RBC Urine 1-5/HPF (0-5/HPF); Squamous Epithelial Cell Urine 0-1 /HPF (0-5/HPF); WBC Urine >100/HPF (0-5/HPF)
[2019-08-19] MEDS: TRIMETH/SULFA 160/800 (DS) TABLET 1 TAB PO (19:49)
[2019-08-19 20:08] VITALS: BP 139/54; PULSE 75; RESP 16; O2SAT 98
--- NOTE | 2019-08-19 20:48 | ED_ITS ---
HPI - Female Genitourinary <Alysha Upton, INORGANIC CHEMISTRY PROFESSOR-BC - Last Filed: 08/19/19 20:51> General Chief complaint: Urogenital-Female Stated complaint: UTI Time Seen by Provider: 08/19/19 18:36 Source: patient Mode of arrival: Ambulatory Limitations: no limitations History of Present Illness HPI Narrative: The patient is a 64-year-old female former smoker with history of renal disease on dialysis who presents by herself for chief complaint of a UTI. She states she started having symptoms last night. She has dysuria urgency and frequency. She denies any fevers nausea vomiting or diarrhea or back pain. She states that she has a history of UTIs, has not been on antibiotics since the fall. She denies any abdominal pain or vaginal discharge and denies any hematuria. Denies any concern of sexually transmitted infections. Related Data Home Medications Medication Instructions Recorded Confirmed aspirin 81 mg PO QDAY #0 03/19/16 multivitamin [Multiple Vitamins] 1 tab PO DAILY #0 tab 03/19/16 03/06/19 omega 8-zqr-otg-fish oil [Fish Oil] 1,000 mg PO DAILY #0 03/19/16 Basaglar KwikPen U-100 Insulin 30 units SUBCUT QPM #0 10/10/17 03/06/19 amlodipine 10 mg PO HS #0 10/10/17 bupropion HCl [Wellbutrin SR] 150 mg PO BID #0 10/10/17 03/06/19 glimepiride [Amaryl] 8 mg PO DAILY #0 10/10/17 03/06/19 levothyroxine 1 tab PO DAILY #0 10/10/17 03/06/19 oxycodone 5 - 7.5 mg PO DAILY #0 10/10/17 03/06/19 ascorbic acid (vitamin C) [Vitamin 1,000 mg PO DAILY 03/06/19 03/06/19 C] ciprofloxacin HCl 250 mg PO [id number] 03/06/19 03/06/19 furosemide 20 mg PO DAILY 03/06/19 03/06/19 hydroxyzine HCl 25 - 50 mg PO QID PRN 03/06/19 03/06/19 rosuvastatin 10 mg PO DAILY 03/06/19 03/06/19 sevelamer carbonate 800 mg PO TID 03/06/19 03/06/19 terbinafine HCl 250 mg PO TUTHSA 03/06/19 03/06/19 Previous Rx's Medication Instructions Recorded cephalexin 500 mg PO BID #20 cap 03/06/19 sulfamethoxazole-trimethoprim 1 tab PO DAILY #7 tab 08/19/19 [Bactrim] Allergies Allergy/AdvReac Type Severity Reaction Status Date / Time prednisone Allergy Severe Agitated Verified 08/19/19 18:34 Review of Systems <SARITHA Tran - Last Filed: 08/19/19 20:51> Review of Systems Narrative: GENERAL: Denies chills, fatigue, malaise, fever, sweats. HEENT: Denies sinus pain, ear pain, sore throat, difficulty swallowing, diz ziness. RESPIRATORY: Denies dyspnea, cough, wheezing, hemoptysis, sputum. CARDIOVASCULAR: Denies chest pain, palpitations, orthopnea, edema, GASTROINTESTINAL: Denies nausea, vomiting, abdominal pain, diarrhea, constipation, melena. : See HPI MUSCULOSKELETAL: denies weakness, joint pain, or bony pain SKIN: Denies rash, skin lesions, or other NEUROLOGIC: Denies weakness, headache, numbness, change in speech, confusion, seizures, incoordination. PSYCHIATRIC: No concerning psychosocial issues. 12 point review of systems is negative except for those stated above Patient History <SARITHA Tran - Last Filed: 08/19/19 20:51> Medical History Chicken pox (Resolved) Dialysis patient (Acute) Measles (Resolved ~1960) Mumps (Resolved ~1964) Surgical History Anesthesia (Resolved) Fistula (Resolved ~2017) History of appendectomy (Resolved ~1995) History of section (Resolved ~1986) History of tonsillectomy (Resolved ~1967) Family History Father CAD (coronary artery disease) [place] (myocardial infarction) Diabetes mellitus History of heart disease Hypertension Hyperlipidemia Mother Stroke Brother Diabetes mellitus Hyperlipidemia Hypertension Brother Diabetes mellitus Hypertension Sister Mental health problem Grandfather History of heart disease Grandmother Cancer Diabetes mellitus Grandfather History of heart disease Grandmother Cancer Diabetes mellitus Family/Other No problems noted. alcohol intake frequency: 0-2 drinks per day Substance Use Type: does not use Exam <SARITHA Tran - Last Filed: 08/19/19 20:51> Narrative Exam Narrative: GENERAL: This is a well-nourished, well-developed patient, in no acute distress HEAD: Atraumatic. Normocephalic. No temporal or scalp tenderness. EYES: Pupils equal round and reactive. Extraocular motions intact. No scleral icterus. No injection or drainage. ENT: Nose without bleeding, purulent drainage or septal hematoma. Throat without erythema, tonsillar hypertrophy or exudate. Uvula midline. Airway patent. NECK: Trachea midline. No JVD or lymphadenopathy. Supple, nontender, no meningeal signs. CARDIOVASCULAR: Regular rate and rhythm RESPIRATORY: Clear to auscultation. Breath sounds equal bilaterally. No wheezes, rales, or rhonchi. No cough. No increased respiratory effort. No accessory muscle use. GASTROINTESTINAL: Abdomen soft, non-tender, nondistended. No hepato- splenomegaly, or palpable masses. No guarding. EXTREMITIES: No clubbing, cyanosis, or edema. No joint tenderness, effusion, or edema noted. BACK: Nontender without deformity or crepitance. No flank tenderness. NEURO: AOx3. SKIN: No rash or erythema on visible skin Initial Vital Signs Initial Vital Signs: Vital Signs Temperature 98.4 F 08/19/19 18:32 Pulse Rate 72 08/19/19 18:32 Respiratory Rate 18 08/19/19 18:32 Blood Pressure 142/56 H 08/19/19 18:32 Pulse Oximetry 99 08/19/19 18:32 <Alysha Arrieta DO - Last Filed: 08/28/19 01:17> Initial Vital Signs Initial Vital Signs: Vital Signs Temperature 98.4 F 08/19/19 18:32 Pulse Rate 72 08/19/19 18:32 Respiratory Rate 18 08/19/19 18:32 Blood Pressure 142/56 H 08/19/19 18:32 Pulse Oximetry 99 08/19/19 18:32 Course <SARITHA Tran - Last Filed: 08/19/19 20:51> Orders Ordered: Discontinued Medications Trimethoprim/Sulfamethoxazole (Bactrim Ds) 1 tab PO NOW ONE Stop: 08/19/19 19:16 Last Admin: 08/19/19 19:49 Dose: 1 tab Documented by: LAURA Vital Signs Vital signs: Vital Signs - 8 hr 08/19/19 18:32 08/19/19 20:08 Temperature 98.4 F Pulse Rate 72 75 Respiratory Rate 18 16 Blood Pressure 142/56 H 139/54 L Pulse Oximetry 99 98 <Alysha Arrieta DO - Last Filed: 08/28/19 01:17> Orders Ordered: Discontinued Medications Trimethoprim/Sulfamethoxazole (Bactrim Ds) 1 tab PO NOW ONE Stop: 08/19/19 19:16 Last Admin: 08/19/19 19:49 Dose: 1 tab Documented by: LAURA Vital Signs Vital signs: Vital Signs - 8 hr 08/19/19 18:32 08/19/19 20:08 Temperature 98.4 F Pulse Rate 72 75 Respiratory Rate 18 16 Blood Pressure 142/56 H 139/54 L Pulse Oximetry 99 98 MDM - Female Genitourinary <CORTNEY Tran- - Last Filed: 08/19/19 20:51> Lab Data Labs: Lab Results 08/19/19 Range/Units 18:31 Urine RBC 1-5/hpf D (0-5/HPF) Urine WBC >100/hpf H (0-5/HPF) Ur Squamous Epith Cells 0-1 /hpf (0-5/HPF) Amorphous Sediment 1+ Urine Bacteria Many (>30) H (None) Urine Mucus 1+ H (Negative) Ur Culture Indicated? Specimen cultured Urine Dip Bedside Urine Glucose Negative Bedside Urine Bilirubin - Negative Bedside Urine Ketone - Negative Urine Specific [place] 1.015 Bedside Urine Occult Blood + Bedside Urine pH 7.0 Bedside Urine Protein + 30 Bedside Urine Urobilinogen 2+ 4mg Bedside Urine Nitrite - Negative Bedside Urine Leukocytes +++ 500 Esterase MDM Narrative Medical decision making narrative: The patient's urinalysis is concerning for UTI. She was dosed with Bactrim as per up-to-date dosing for hemodialysis recommendations, starting with 1 double-strength tab followed by 1 regular strength tab daily. Urine cultures pending at this time. Discussed at length monitoring for signs of systemic infection such as fever, inability keep down fluids etcetera patient states understanding and has no questions or concerns regarding return precautions and follow-up care. She has no signs of systemic illness the emergency department, is afebrile and nontoxic appearing. <Alysha Ellsworth Ramirezwilmar, - Last Filed: 08/28/19 01:17> Lab Data Labs: Lab Results 08/19/19 Range/Units 18:31 Urine RBC 1-5/hpf D (0-5/HPF) Urine WBC >100/hpf H (0-5/HPF) Ur Squamous Epith Cells 0-1 /hpf (0-5/HPF) Amorphous Sediment 1+ Urine Bacteria Many (>30) H (None) Urine Mucus 1+ H (Negative) Ur Culture Indicated? Specimen cultured Urine Dip Bedside Urine Glucose Negative Bedside Urine Bilirubin - Negative Bedside Urine Ketone - Negative Urine Specific [place] 1.015 Bedside Urine Occult Blood + Bedside Urine pH 7.0 Bedside Urine Protein + 30 Bedside Urine Urobilinogen 2+ 4mg Bedside Urine Nitrite - Negative Bedside Urine Leukocytes +++ 500 Esterase Discharge Plan Departure Patient Disposition: Home Clinical Impression: UTI (urinary tract infection) Qualifiers: Urinary tract infection type: site unspecified Hematuria presence: without hematuria Qualified Code(s): N39.0 - Urinary tract infection, site not specified Discharge Date/Time: 08/19/19 20:08 Instructions: DI for Urinary Tract Infection (UTI) Activity Restrictions/Additional Instructions: Today we found that you have a urinary tract infection. Urine culture is pending at this time. I sent a prescription of Bactrim to [facility]. Please follow-up with primary care provider as well as your Kidney specialist in the next few days. As discussed we have dosed your Bactrim according to dialysis guidelines. Please take your daily dose after dialysis. Please come back to emergency department for any acute concerns such as inability keep down fluids Prescriptions: New sulfamethoxazole-trimethoprim [Bactrim] 400-80 mg tablet 1 tab PO DAILY Qty: 7 RF: 0 No Action aspirin 81 MG tablet,delayed release (DR/EC) 81 mg PO QDAY Qty: 0 RF: 0 multivitamin [Multiple Vitamins] 1 EACH tablet 1 tab PO DAILY Qty: 0 RF: 0 omega 0-qzb-yag-fish oil [Fish Oil] 1,000 mg (120 mg-180 mg) Capsule 1,000 mg PO DAILY Qty: 0 RF: 0 bupropion HCl [Wellbutrin SR] 150 MG tablet extended release 12 hr 150 mg PO BID Qty: 0 RF: 0 Basaglar KwikPen U-100 Insulin 100 UNIT/1 ML insulin pen 30 units subcut QPM Qty: 0 RF: 0 levothyroxine 200 MCG tablet 1 tab PO DAILY Qty: 0 RF: 0 oxycodone 5 MG tablet 5 - 7.5 mg PO DAILY Qty: 0 RF: 0 amlodipine 10 MG tablet 10 mg PO HS Qty: 0 RF: 0 glimepiride [Amaryl] 4 MG tablet 8 mg PO DAILY Qty: 0 RF: 0 ascorbic acid (vitamin C) [Vitamin C] 1,000 mg tablet extended release 1,000 mg PO DAILY RF: 0 ciprofloxacin HCl 250 mg tablet 250 mg PO [id number] RF: 0 terbinafine HCl 250 mg tablet 250 mg PO TUTHSA RF: 0 hydroxyzine HCl 25 mg tablet 25 - 50 mg PO QID PRN (Reason: Anxiety) RF: 0 furosemide 20 mg tablet 20 mg PO DAILY RF: 0 rosuvastatin 10 mg tablet 10 mg PO DAILY RF: 0 sevelamer carbonate 800 mg tablet 800 mg PO TID RF: 0 cephalexin 500 mg capsule 500 mg PO BID Qty: 20 RF: 0 Referrals: Penny Lombardi ARNP [Primary Care Provider] -
== END 2019-08-19 20:08 | disposition home or self-care (01) ==
PROVIDERS: Emergency Medicine; Emergency Provider Nurse Practitioner Family; PCP Nurse Practitioner
DX: N39.0 Urinary tract infection, site not specified (principal)
CPT/HCPCS: 72158; 81003; 81015; 87077; 87086; 87186; 99283; A9579

== ENCOUNTER → 2020-02-16 09:23 | Outpatient (CLI) | payer MEDICARE, MEDICAID, SELFPAY ==
[2020-02-16 10:29] LABS: Alanine Aminotransferase 19 IU/L (<35); Albumin 4.6 g/dL (3.5-5.0); Albumin Globulin Ratio 1.5 (1.0-2.8); Alkaline Phosphatase 111 U/L (38-126); Aspartate Aminotransferase 19 IU/L (14-36); BUN Creatinine Ratio 10.8 (6-22); Bilirubin Total 0.3 mg/dL (0.2-1.3); Blood Urea Nitrogen 68 mg/dL (7-17); Calcium 10.2 mg/dL (8.4-10.2); Carbon Dioxide 26 mmol/L (22-32); Chloride 100 mmol/L (98-107); Cholesterol 222 mg/dL (140-199); Estimated Glomerular Filt Rate 6.7 mL/min (>60); Globulin 3.1 g/dL (1.7-4.1); Glucose 60 mg/dL (80-110); HDL Cholesterol 26 mg/dL (40-60); HEMOLYSIS < 15 (0-50); LDL Cholesterol Calculated 132 mg/dL (<100); Potassium 4.6 mmol/L (3.4-5.1); Sodium 140 mmol/L (137-145); Total Protein 7.7 g/dL (6.3-8.2); Triglycerides 322 mg/dL (35-150)
[2020-02-16 10:30] LABS: Hemoglobin A1C% w Est Avg Glu 6.2 % (4.0-6.0)
[2020-02-16 11:08] LABS: TSH w/ Reflex to FT4 1.36 uIU/mL (0.47-4.68)
== END ==
PROVIDERS: PCP Student in an Organized Health Care Education/Training Program; Referring Provider Internal Medicine; Visit Provider Internal Medicine
DX: E11.8 Type 2 diabetes mellitus with unspecified complications (principal); I10 Essential (primary) hypertension; E78.2 Mixed hyperlipidemia; E03.9 Hypothyroidism, unspecified
CPT/HCPCS: 36415; 80053; 80061; 83036; 84443

== ENCOUNTER 2020-07-22 19:45 | Emergency (ER) | payer MEDICARE, MEDICAID, SELFPAY ==
[2020-07-22 20:00] VITALS: BP 136/60; PULSE 83; RESP 16; TEMP 37.7; O2SAT 96; BMI 41.8
--- NOTE | 2020-07-22 20:36 | PC.NURSE ---
Patient reports UTI starting last night. Reports pain with urination and frequency. Denies any blood in urine. Denies fever/chills, nausea, or vomiting. Reports pain to lower abdomen area as 8/10. Prior to coming to ED states tried drinking cranberry juice to no improvement. Requested urine sample from patient, stated unable at this time. Provided with water and given call light.
[2020-07-22 21:07] LABS: Appearance Urine UA TURBID; Bilirubin Urine UA NEGATIVE (NEGATIVE); Color Urine UA YELLOW; Glucose Urine UA NEGATIVE (Negative); Ketones Urine UA TRACE (NEGATIVE); Leukocyte Esterase Urine UA 2+ (NEGATIVE); Nitrite Urine UA NEGATIVE (Negative); Occult Blood Urine UA 3+ (Negative); Protein Urine UA 3+ (Negative); Urobilinogen Urine UA 0.2 E.U./dL (0.2)
[2020-07-22 21:13] LABS: Bacteria Urine Many (>30); Culture Indicated Urine Specimen Cultured; RBC Urine 1-5/HPF (0-5/HPF); Squamous Epithelial Cell Urine 1-5 /HPF (0-5/HPF); WBC Urine >100/HPF (0-5/HPF)
--- NOTE | 2020-07-22 21:27 | ED.GENADULT ---
HPI - General Adult General Chief complaint: Urogenital-Female Stated complaint: states raging UTI Time Seen by Provider: 07/22/20 20:01 Source: patient Mode of arrival: Wheelchair Limitations: no limitations History of Present Illness HPI narrative: 65-year-old female who is end-stage renal disease on dialysis he still produces a small amount a urine on a daily basis who received a full dialysis treatment today and has also had frequent urinary tract infections here for evaluation approximately 24 hours of burning and itching. She states it feels just like her prior urinary tract infections. She did receive a full dialysis treatment today. She tried to contact her primary doctor's office told her to go to the urgent care but patient could not because she had to go to her dialysis. She comes to the department today after her dialysis treatment for evaluation of her urinary symptoms. Related Data Home Medications Medication Instructions Recorded Confirmed aspirin 81 mg PO QDAY #0 03/19/16 multivitamin [Multiple Vitamins] 1 tab PO DAILY #0 tab 03/19/16 03/06/19 omega 8-iia-rpk-fish oil [Fish Oil] 1,000 mg PO DAILY #0 03/19/16 Basaglar KwikPen U-100 Insulin 30 units SUBCUT QPM #0 10/10/17 03/06/19 amlodipine 10 mg PO HS #0 10/10/17 bupropion HCl [Wellbutrin SR] 150 mg PO BID #0 10/10/17 03/06/19 glimepiride [Amaryl] 8 mg PO DAILY #0 10/10/17 03/06/19 levothyroxine 1 tab PO DAILY #0 10/10/17 03/06/19 oxycodone 5 - 7.5 mg PO DAILY #0 10/10/17 03/06/19 ascorbic acid (vitamin C) [Vitamin 1,000 mg PO DAILY 03/06/19 03/06/19 C] ciprofloxacin HCl 250 mg PO [id number] 03/06/19 03/06/19 furosemide 20 mg PO DAILY 03/06/19 03/06/19 hydroxyzine HCl 25 - 50 mg PO QID PRN 03/06/19 03/06/19 rosuvastatin 10 mg PO DAILY 03/06/19 03/06/19 sevelamer carbonate 800 mg PO TID 08/08/19 08/08/19 terbinafine HCl 250 mg PO TUTHS 03/06/19 03/06/19 Previous Rx's Medication Instructions Recorded cephalexin 500 mg PO BID #20 cap 03/06/19 sulfamethoxazole-trimethoprim 1 tab PO DAILY #7 tab 08/19/19 [Bactrim] sulfamethoxazole-trimethoprim 1 tab PO DAILY 5 Days #5 tab 07/22/20 [Bactrim] Allergies Allergy/AdvReac Type Severity Reaction Status Date / Time prednisone Allergy Severe Agitated Verified 08/19/19 18:34 Review of Systems Constitutional Constitutional: Denies chills and Denies fever(s) Cardiovascular Cardiovascular: Denies chest pain and Denies dyspnea Respiratory Respiratory: Denies dyspnea Gastrointestinal Gastrointestinal: Denies abdominal pain, Denies nausea and Denies vomiting Genitourinary Genitourinary: Denies hematuria, Reports dysuria, Denies urinary incontinence and Reports urinary urgency Genitourinary: Denies hematuria, Reports dysuria, Denies urinary incontinence and Reports urinary urgency Musculoskeletal Musculoskeletal: Denies arthralgias and Denies myalgias Integumentary/Breasts Skin/Breast: Denies lesions and Denies rash Neurologic Neurologic: Denies behavioral changes Psychiatric Psychiatric: Denies behavioral changes Hematologic/Lymphatic Hematologic/Lymphatic: Denies easy bleeding and Denies easy bruising Allergic/Immunologic Allergic/Immunologic: Denies urticaria Patient History Medical History Chicken pox Dialysis patient Measles (~1960) Mumps (~1964) Surgical History Anesthesia Fistula (~2017) History of appendectomy (~1995) History of section (~1986) History of tonsillectomy (~1967) Family History Father CAD (coronary artery disease) [place] (myocardial infarction) Diabetes mellitus History of heart disease Hypertension Hyperlipidemia Mother Stroke Brother Diabetes mellitus Hyperlipidemia Hypertension Brother Diabetes mellitus Hypertension Sister Mental health problem Grandfather History of heart disease Grandmother Cancer Diabetes mellitus Grandfather History of heart disease Grandmother Cancer Diabetes mellitus Family/Other No problems noted. Social History Smoking Status: Former smoker Smoking Status: Former smoker alcohol intake frequency: 0-2 drinks per day Substance Use Type: does not use Exam Initial Vital Signs Initial Vital Signs: Vital Signs Temperature 99.8 F H 07/22/20 20:00 Pulse Rate 83 07/22/20 20:00 Respiratory Rate 16 07/22/20 20:00 Blood Pressure 136/60 07/22/20 20:00 Pulse Oximetry 96 07/22/20 20:00 Const General: cooperative and comfortable Limitations: mental status not altered HENNM Head: normal to inspection and normocephalic Resp Effort & Inspection: normal respiratory effort Cardio Rate: regular rate Skin Lesions: no lesions Rashes: no rashes Extrem Other: Dialysis fistula left upper extremity Psych Appearance: grossly normal and well kempt Course Orders Ordered: ED Orders 07/22/20 21:00 Urinalysis and Microscopic Stat Urine Culture Stat Discontinued Medications Trimethoprim/Sulfamethoxazole (Trimeth/Sulfa 160/800 (Ds) Tablet) 1 tab PO NOW ONE Stop: 07/22/20 21:32 Last Admin: 07/22/20 21:40 Dose: 1 tab Documented by: RMARTIN Trimethoprim/Sulfamethoxazole (Trimeth/Sulfa 80/400 (Ss) Tablet) 1 tab PO NOW ONE Stop: 07/22/20 21:33 Last Admin: 07/22/20 21:55 Dose: Not Given Documented by: RMARTIN Trimethoprim/Sulfamethoxazole (Trimeth/Sulfa 160/800 (Ds) Tablet) 0.5 tab PO NOW ONE Stop: 07/22/20 21:50 Last Admin: 07/22/20 21:53 Dose: 0.5 tab Documented by: RMARTIN Vital Signs Vital signs: Vital Signs - 8 hr 07/22/20 20:00 07/22/20 22:02 Temperature 99.8 F H Pulse Rate 83 77 Respiratory Rate 16 16 Blood Pressure 136/60 142/64 H Pulse Oximetry 96 100 Medical Decision Making Lab Data Lab results reviewed: Yes I reviewed the patient's lab results. Labs: Lab Results 07/22/20 Range/Units 21:00 Urine Color Yellow Urine Appearance Turbid Urine pH 6.0 (4.5-8.0) Ur Specific [place] 1.020 (1.000-1.035) Urine Protein 3+ H (Negative) Urine Glucose (UA) Negative (Negative) g/dL Urine Ketones Trace H (NEGATIVE) Urine Occult Blood 3+ H (Negative) Urine Nitrate Negative (Negative) Urine Bilirubin Negative (NEGATIVE) Urine Urobilinogen 0.2 (0.2) E.U./dL Ur Leukocyte Esterase 2+ H (NEGATIVE) Urine RBC 1-5/hpf (0-5/HPF) Urine WBC >100/hpf H (0-5/HPF) Ur Squamous Epith Cells 1-5 /hpf (0-5/HPF) Urine Bacteria Many (>30) H (None) Ur Culture Indicated? Specimen cultured MDM Narrative Medical decision making narrative: Patient's history and physical and urinalysis today is concerning for urinary tract infection. Review of her prior culture shows E coli and also other bacteria. Patient cannot remember the last antibiotic that she had taken but she states that would ever that antibiotic was it did improve her symptoms. Review of the notes here in the emergency department shows that earlier this year she received Bactrim. Review of the prior culture shows that the bacteria is that were causing her symptoms were susceptible to Bactrim. Given her GFR status she was given a single dose of double-strength Bactrim here in the emergency department. Due to the holiday tomorrow and the fact that there are no pharmacies open tomorrow she was given a 2nd dose of a single strength Bactrim to take home with her to take tomorrow. A prescription was then electronically transmitted to the pharmacy of her choice for the remainder of the course. She was given return precautions and follow-up instructions. She tolerated the oral antibiotic without problems. She expressed understanding and agreement. Discharge Plan Departure Patient Disposition: Home Clinical Impression: UTI (urinary tract infection) Instructions: DI for Urinary Tract Infection (UTI) Activity Restrictions/Additional Instructions: You were given dose of antibiotics here in the emergency department. You were also given a dose for tomorrow given that it is the holiday and all of the pharmacies are closed. I electronically transmitted a prescription for the remainder of the course of antibiotics to [facility]. You will start this antibiotic on July 24. Take this as directed. Keep all of your scheduled dialysis appointments. On the days that you have dialysis I recommend waiting until after your treatment for taking the antibiotic. Return to the emergency department for any new or worsening symptoms Prescriptions: New sulfamethoxazole-trimethoprim [Bactrim] 400-80 mg tablet 1 tab PO DAILY 5 Days Qty: 5 RF: 0 No Action aspirin 81 MG tablet,delayed release (DR/EC) 81 mg PO QDAY Qty: 0 RF: 0 multivitamin [Multiple Vitamins] 1 EACH tablet 1 tab PO DAILY Qty: 0 RF: 0 omega 5-izp-yzk-fish oil [Fish Oil] 1,000 mg (120 mg-180 mg) Capsule 1,000 mg PO DAILY Qty: 0 RF: 0 bupropion HCl [Wellbutrin SR] 150 MG tablet extended release 12 hr 150 mg PO BID Qty: 0 RF: 0 Basaglar KwikPen U-100 Insulin 100 UNIT/1 ML insulin pen 30 units subcut QPM Qty: 0 RF: 0 levothyroxine 200 MCG tablet 1 tab PO DAILY Qty: 0 RF: 0 oxycodone 5 MG tablet 5 - 7.5 mg PO DAILY Qty: 0 RF: 0 amlodipine 10 MG tablet 10 mg PO HS Qty: 0 RF: 0 glimepiride [Amaryl] 4 MG tablet 8 mg PO DAILY Qty: 0 RF: 0 sulfamethoxazole-trimethoprim [Bactrim] 400-80 mg tablet 1 tab PO DAILY Qty: 7 RF: 0 ascorbic acid (vitamin C) [Vitamin C] 1,000 mg tablet extended release 1,000 mg PO DAILY RF: 0 ciprofloxacin HCl 250 mg tablet 250 mg PO [id number] RF: 0 terbinafine HCl 250 mg tablet 250 mg PO TUTHSA RF: 0 hydroxyzine HCl 25 mg tablet 25 - 50 mg PO QID PRN (Reason: Anxiety) RF: 0 furosemide 20 mg tablet 20 mg PO DAILY RF: 0 rosuvastatin 10 mg tablet 10 mg PO DAILY RF: 0 sevelamer carbonate 800 mg tablet 800 mg PO TID RF: 0 cephalexin 500 mg capsule 500 mg PO BID Qty: 20 RF: 0 Referrals: Malgorzata Yin MD [Primary Care Provider] -
[2020-07-22] MEDS: TRIMETH/SULFA 160/800 (DS) TABLET 1 TAB PO (21:40)
[2020-07-22] MEDS: TRIMETH/SULFA 160/800 (DS) TABLET 0.5 TAB PO (21:53)
[2020-07-22 22:02] VITALS: BP 142/64; PULSE 77; RESP 16; O2SAT 100
== END 2020-07-22 22:02 | disposition home or self-care (01) ==
PROVIDERS: Emergency Provider Emergency Medicine; PCP Student in an Organized Health Care Education/Training Program
DX: N39.0 Urinary tract infection, site not specified (principal); N18.6 End stage renal disease; Z99.2 Dependence on renal dialysis
CPT/HCPCS: 81001; 87077; 87086; 87186; 99281; 99283

== ENCOUNTER → 2020-07-24 12:48 | Outpatient (CLI) | payer MEDICARE, MEDICAID, SELFPAY ==
--- NOTE | 2020-07-24 | DI.MG.S_ITS ---
BILATERAL DIGITAL SCREENING MAMMOGRAM 3D/2D WITH CAD: 07/24/2020 CLINICAL: Routine screening. Family history of breast cancer. Comparison is made to exams dated: 10/11/2017 mammogram and 11/17/2014 mammogram - [facility]. There are scattered fibroglandular elements in both breasts. Current study was also evaluated with a Computer Aided Detection (CAD) system. No significant masses, calcifications, or other findings are seen in either breast. There has been no significant interval change. IMPRESSION: NEGATIVE There is no mammographic evidence of malignancy. A 1 year screening mammogram is recommended. This exam was interpreted at Station ID: [id number]. NOTE: For mammograms, a report in lay terms will be sent to the patient. Approximately 15% of breast malignancies will not be visualized mammographically. In the management of a palpable breast mass, a negative mammogram must not discourage biopsy of a clinically suspicious lesion. Electronically Signed By: Javy cox/magnus:07/26/2020 13:54:21 letter sent: Normal Exam ACR BI-RADS Category 1: Negative [id number]
== END ==
PROVIDERS: PCP Student in an Organized Health Care Education/Training Program; Referring Provider Student in an Organized Health Care Education/Training Program; Visit Provider Student in an Organized Health Care Education/Training Program
DX: Z12.31 Encounter for screening mammogram for malignant neoplasm of breast (principal); Z80.3 Family history of malignant neoplasm of breast
CPT/HCPCS: 77063; 77067

== ENCOUNTER 2021-01-17 19:51 | Emergency (ER) | payer MEDICARE, MEDICAID, SELFPAY ==
[2021-01-17 19:55] VITALS: BP 147/77; PULSE 76; RESP 16; TEMP 36.9; O2SAT 96; BMI 41.1
[2021-01-17 20:06] LABS: Bacteria Urine None Seen
[2021-01-17 20:14] LABS: Bilirubin Urine UA NEGATIVE (NEGATIVE); Color Urine UA YELLOW; Glucose Urine UA NEGATIVE (Negative); Ketones Urine UA NEGATIVE (NEGATIVE); Leukocyte Esterase Urine UA 3+ (NEGATIVE); Nitrite Urine UA NEGATIVE (Negative); Occult Blood Urine UA 3+ (Negative); Protein Urine UA 3+ (Negative); Specific Gravity Urine UA 1.015 (1.000-1.035); Urobilinogen Urine UA 0.2 E.U./dL (0.2)
[2021-01-17 20:16] LABS: Appearance Urine UA CLOUDY
[2021-01-17 20:25] LABS: RBC Urine 10-30/HPF (0-5/HPF)
[2021-01-17 20:26] LABS: Culture Indicated Urine Cult Not Indicated; Squamous Epithelial Cell Urine 5-10 /HPF (0-5/HPF); WBC Urine 30-100/HPF (0-5/HPF)
[2021-01-17 20:47] VITALS: BP 130/61; PULSE 71; RESP 20; TEMP 36.8; O2SAT 98
--- NOTE | 2021-01-17 21:44 | ED_ITS ---
HPI - Female Genitourinary General Chief complaint: Urogenital-Female Stated complaint: UTI Time Seen by Provider: 01/17/21 20:49 Source: patient Mode of arrival: Wheelchair Limitations: no limitations History of Present Illness HPI Narrative: 65-year-old female of end-stage kidney disease receives dialysis on Wednesdays and Fridays but still makes urine presents with a chief complaint of dysuria, frequency and urgency, classic for her frequent urinary tract infections. She has no fever or chills, denies nausea and vomiting. She has had no chest pain or shortness of breath. She is not dizzy nor weak or lightheaded. MD Complaint: dysuria and UTI Onset (ago): hour(s) Location: suprapubic Severity: mild Quality: Burning Duration: constant Relieving factors: none Exacerbating factors: urination Urinary symptoms: Dysuria, Foul Smelling Urine, Frequency, Hematuria and Urgency Patient : No Related Data Home Medications Medication Instructions Recorded Confirmed aspirin 81 mg PO QDAY #0 03/19/16 multivitamin [Multiple Vitamins] 1 tab PO DAILY #0 tab 03/19/16 03/06/19 omega 5-kto-pav-fish oil [Fish Oil] 1,000 mg PO DAILY #0 03/19/16 Basaglar KwikPen U-100 Insulin 30 units SUBCUT QPM #0 10/10/17 03/06/19 amlodipine 10 mg PO HS #0 10/10/17 bupropion HCl [Wellbutrin SR] 150 mg PO BID #0 10/10/17 03/06/19 glimepiride [Amaryl] 8 mg PO DAILY #0 10/10/17 03/06/19 levothyroxine 1 tab PO DAILY #0 10/10/17 03/06/19 oxycodone 5 - 7.5 mg PO DAILY #0 10/10/17 03/06/19 ascorbic acid (vitamin C) [Vitamin 1,000 mg PO DAILY 03/06/19 03/06/19 C] ciprofloxacin HCl 250 mg PO [id number] 03/06/19 03/06/19 furosemide 20 mg PO DAILY 03/06/19 03/06/19 hydroxyzine HCl 25 - 50 mg PO QID PRN 03/06/19 03/06/19 rosuvastatin 10 mg PO DAILY 03/06/19 03/06/19 sevelamer carbonate 800 mg PO TID 03/06/19 03/06/19 terbinafine HCl 250 mg PO TUTHSA 03/06/19 03/06/19 Previous Rx's Medication Instructions Recorded cephalexin 500 mg PO BID #20 cap 03/06/19 sulfamethoxazole-trimethoprim 1 tab PO DAILY #7 tab 08/19/19 [Bactrim] sulfamethoxazole-trimethoprim 1 tab PO BID 10 Days #20 tab 01/17/21 [Bactrim DS] Allergies Allergy/AdvReac Type Severity Reaction Status Date / Time prednisone Allergy Severe Agitated Verified 01/17/21 19:58 Review of Systems Constitutional Constitutional: Denies chills, Denies fatigue, Denies fever(s), Denies frequent falls, Denies lethargy and Denies weakness Eyes Eyes: Denies change in vision, Denies eye discharge, Denies irritation and Denies loss of vision ENT Ears, Nose, Mouth, and Throat: Denies change in voice, Denies dizziness, Denies neck pain, Denies sore throat and Denies throat swelling Cardiovascular Cardiovascular: Denies chest pain, Denies irregular heart rhythm, Denies lightheadedness, Denies palpitations, Denies dyspnea, Denies dyspnea on exertion and Denies orthopnea Respiratory Respiratory: Denies cough, Denies dyspnea, Denies dyspnea on exertion and Denies wheezing Gastrointestinal Gastrointestinal: Denies abdominal pain, Denies change in bowel habits, Denies diarrhea, Denies nausea and Denies vomiting Genitourinary Genitourinary: Reports dysuria Genitourinary: Reports difficulty voiding and Reports dysuria Musculoskeletal Musculoskeletal: Denies neck pain and Denies numbness Integumentary/Breasts Skin/Breast: Denies pruritus, Denies erythema, Denies rash and Denies wounds Neurologic Neurologic: Denies behavioral changes, Denies confusion, Denies dizziness, Denies frequent falls, Denies loss of vision, Denies numbness and Denies weakness Psychiatric Psychiatric: Denies anxiety, Denies behavioral changes, Denies confusion, Denies depression, Denies homicidal ideation and Denies suicidal ideation Endocrine Endocrine: Denies fatigue, Denies flushing and Denies palpitations Hematologic/Lymphatic Hematologic/Lymphatic: Denies easy bruising Allergic/Immunologic Allergic/Immunologic: Denies urticaria, Denies throat swelling and Denies wheezing Patient History Medical History Chicken pox Dialysis patient Measles (~1960) Mumps (~1964) Surgical History Anesthesia Fistula (~2017) History of appendectomy (~1995) History of section (~1986) History of tonsillectomy (~1967) Family History Father CAD (coronary artery disease) [place] (myocardial infarction) Diabetes mellitus History of heart disease Hypertension Hyperlipidemia Mother Stroke Brother Diabetes mellitus Hyperlipidemia Hypertension Brother Diabetes mellitus Hypertension Sister Mental health problem Grandfather History of heart disease Grandmother Cancer Diabetes mellitus Grandfather History of heart disease Grandmother Cancer Diabetes mellitus Family/Other No problems noted. alcohol intake frequency: 0-2 drinks per day Substance Use Type: does not use Exam Narrative Exam Narrative: GENERAL: [65] year old patient appears stated age. Well- developed patient, in mild distress. HEAD: Atraumatic. Normocephalic. EYES: Pupils equal round and reactive. Extraocular motions intact. No scleral icterus. No injection or drainage. ENT: Nose without bleeding, purulent drainage. Throat without erythema, tonsillar hypertrophy or exudate. Airway patent. NECK: Trachea midline. Non tender CARDIOVASCULAR: Regular rate and rhythm without murmurs, gallops, or rubs. RESPIRATORY: Clear to auscultation. Breath sounds equal bilaterally. No wheezes, rales, or rhonchi. GASTROINTESTINAL: Abdomen soft, mild suprapubic tenderness, nondistended. EXTREMITIES: No edema or joint tenderness. BACK: Nontender without deformity or crepitance. No flank tenderness. No CVA tenderness NEURO: AOx3. SKIN: No rash or erythema of visible areas Initial Vital Signs Initial Vital Signs: Vital Signs Temperature 98.5 F 01/17/21 19:55 Pulse Rate 76 01/17/21 19:55 Respiratory Rate 16 01/17/21 19:55 Blood Pressure 147/77 H 01/17/21 19:55 Pulse Oximetry 96 01/17/21 19:55 Course Orders Ordered: ED Orders 01/17/21 20:00 Urinalysis and Microscopic Stat Discontinued Medications Trimethoprim/Sulfamethoxazole (Trimeth/Sulfa 160/800 (Ds) Tablet) 1 tab PO NOW ONE Stop: 01/17/21 21:48 Last Admin: 01/17/21 21:57 Dose: 1 tab Documented by: JENNIFER Vital Signs Vital signs: Vital Signs - 8 hr 01/17/21 19:55 01/17/21 20:47 Temperature 98.5 F 98.2 F Pulse Rate 76 71 Respiratory Rate 16 20 Blood Pressure 147/77 H 130/61 Pulse Oximetry 96 98 MDM - Female Genitourinary Lab Data Labs: Lab Results 01/17/21 Range/Units 20:00 Urine Color Yellow Urine Appearance Cloudy Urine pH 8.0 (4.5-8.0) Ur Specific [place] 1.015 (1.000-1.035) Urine Protein 3+ H (Negative) Urine Glucose (UA) Negative (Negative) g/dL Urine Ketones Negative (NEGATIVE) Urine Occult Blood 3+ H (Negative) Urine Nitrate Negative (Negative) Urine Bilirubin Negative (NEGATIVE) Urine Urobilinogen 0.2 (0.2) E.U./dL Ur Leukocyte Esterase 3+ H (NEGATIVE) Urine RBC 10-30/hpf H (0-5/HPF) Urine WBC 30-100/hpf H (0-5/HPF) Ur Squamous Epith Cells 5-10 /hpf H (0-5/HPF) Urine Bacteria None seen (None) Ur Culture Indicated? Cult not indicated Discharge Plan Departure Patient Disposition: Home Clinical Impression: UTI (urinary tract infection) Qualifiers: Urinary tract infection type: site unspecified Hematuria presence: with hematuria Qualified Code(s): N39.0 - Urinary tract infection, site not specified Instructions: DI for Urinary Tract Infection (UTI) Activity Restrictions/Additional Instructions: *You have been diagnosed with [acute urinary tract infection] *What to do: *Please continue to take your regular medications as directed. [x ] New medication prescriptions sent to your pharmacy: [[facility]] [ ] New medication written as a paper prescription [ ] No new medications given *Please follow up with your primary care provider in 2-3 days, call for an appointment. Let them know you were seen in the Emergency Department and that we ask that you be seen in follow up. We will electronically transmit a record of today's note if your PCP is in our system *If you do not have a primary care provider please contact the [facility] Resource line at [phone]. They will ask some questions about your medical history and help get you set up with a doctor in the community. *Return to Emergency Department if you should have any new, worsening or concerning symptoms, such as [fever greater than 101 F, shaking chills, worsening pain, persistent vomiting or other bothersome symptoms] Prescriptions: New sulfamethoxazole-trimethoprim [Bactrim DS] 800-160 mg tablet 1 tab PO BID 10 Days Qty: 20 RF: 0 No Action aspirin 81 MG tablet,delayed release (DR/EC) 81 mg PO QDAY Qty: 0 RF: 0 multivitamin [Multiple Vitamins] 1 EACH tablet 1 tab PO DAILY Qty: 0 RF: 0 omega 1-mse-eni-fish oil [Fish Oil] 1,000 mg (120 mg-180 mg) Capsule 1,000 mg PO DAILY Qty: 0 RF: 0 bupropion HCl [Wellbutrin SR] 150 MG tablet extended release 12 hr 150 mg PO BID Qty: 0 RF: 0 Basaglar KwikPen U-100 Insulin 100 UNIT/1 ML insulin pen 30 units subcut QPM Qty: 0 RF: 0 levothyroxine 200 MCG tablet 1 tab PO DAILY Qty: 0 RF: 0 oxycodone 5 MG tablet 5 - 7.5 mg PO DAILY Qty: 0 RF: 0 amlodipine 10 MG tablet 10 mg PO HS Qty: 0 RF: 0 glimepiride [Amaryl] 4 MG tablet 8 mg PO DAILY Qty: 0 RF: 0 sulfamethoxazole-trimethoprim [Bactrim] 400-80 mg tablet 1 tab PO DAILY Qty: 7 RF: 0 ascorbic acid (vitamin C) [Vitamin C] 1,000 mg tablet extended release 1,000 mg PO DAILY RF: 0 ciprofloxacin HCl 250 mg tablet 250 mg PO [id number] RF: 0 terbinafine HCl 250 mg tablet 250 mg PO TUTHSA RF: 0 hydroxyzine HCl 25 mg tablet 25 - 50 mg PO QID PRN (Reason: Anxiety) RF: 0 furosemide 20 mg tablet 20 mg PO DAILY RF: 0 rosuvastatin 10 mg tablet 10 mg PO DAILY RF: 0 sevelamer carbonate 800 mg tablet 800 mg PO TID RF: 0 cephalexin 500 mg capsule 500 mg PO BID Qty: 20 RF: 0 Referrals: Malgorzata Yin MD [Primary Care Provider] -
[2021-01-17] MEDS: TRIMETH/SULFA 160/800 (DS) TABLET 1 TAB PO (21:57)
[2021-01-17 22:05] VITALS: BP 174/73; PULSE 69; RESP 14; O2SAT 69
== END 2021-01-17 22:07 | disposition home or self-care (01) ==
PROVIDERS: Emergency Provider Emergency Medicine; PCP Student in an Organized Health Care Education/Training Program
DX: N39.0 Urinary tract infection, site not specified (principal)
CPT/HCPCS: 81001; 99283

== ENCOUNTER 2021-05-23 20:38 | Emergency (ER) | payer MEDICARE, MEDICAID, SELFPAY ==
[2021-05-23 20:45] VITALS: BP 157/67; PULSE 72; RESP 17; TEMP 36.6; O2SAT 95; BMI 41.1
--- NOTE | 2021-05-23 20:50 | DI.RAD.S_ITS ---
PROCEDURE: XR CHEST 1V INDICATIONS: chest pain TECHNIQUE: One view of the chest was acquired. COMPARISON: None. FINDINGS: Surgical changes and devices: None. Lungs and pleura: Scattered subsegmental atelectasis and/or scarring. Patchy ill-defined and ground-glass mild opacities in both lung bases. No focal consolidation. No pleural effusion or pneumothorax. Low lung volumes Mediastinum: Mediastinal contours appear normal. Heart size is normal. Bones and chest wall: No suspicious bony lesions. Overlying soft tissues appear unremarkable. IMPRESSION: Mild patchy bibasilar opacities possibly atelectasis versus scarring or early pulmonary edema. No definite acute consolidation. If there is persistent clinical diagnostic uncertainty, continued surveillance with short interval radiographic followup after treatment is recommended. Dictated by: Eddi Solis M.D. on 05/23/2021 at 22:01 Approved by: Eddi Solis M.D. on 05/23/2021 at 22:03
[2021-05-23 21:11] LABS: Add Manual Diff / Slide Review NO; Basophils Absolute Auto 100 /uL (0-100); Basophils Percent Auto 0.8 % (0-2); Eosinophils Absolute Auto 0 /uL (0-450); Eosinophils Percent Auto 0.2 % (2-4); Hematocrit 32.8 % (36-46); Lymphocytes Absolute Auto 1100 /uL (1100-4500); Lymphocytes Percent Auto 10.1 % (25-40); Mean Corpuscular HGB Conc 33.7 % (30-36); Mean Corpuscular Volume 86.1 fL (80-100); Monocytes Absolute Auto 500 /uL (0-900); Monocytes Percent Auto 4.3 % (3-14); Neutrophils Absolute Auto 9500 /uL (1500-7000); Neutrophils Percent Auto 84.6 % (50-75); Platelet Count 232 X10^3/uL (150-400); Red Cell Distribution Width 14.9 % (11.6-14.8); White Blood Cell Count 11.2 X10^3/uL (4.5-11.0)
[2021-05-23 21:24] LABS: COVID19 -Nasal RAPID Negative (Negative)
[2021-05-23 21:25] LABS: Alanine Aminotransferase 26 IU/L (<35); Albumin 4.6 g/dL (3.5-5.0); Albumin Globulin Ratio 1.5 (1.0-2.8); Alkaline Phosphatase 149 U/L (38-126); Aspartate Aminotransferase 24 IU/L (14-36); BUN Creatinine Ratio 8.8 (6-22); Bilirubin Total 0.3 mg/dL (0.2-1.3); Blood Urea Nitrogen 23 mg/dL (7-17); Calcium 9.7 mg/dL (8.4-10.2); Carbon Dioxide 30 mmol/L (22-32); Chloride 93 mmol/L (98-107); Creatine Kinase 41 U/L (30-135); Estimated Glomerular Filt Rate 18.4 mL/min (>60); Globulin 3.1 g/dL (1.7-4.1); Glucose 189 mg/dL (80-110); HEMOLYSIS 19 (0-50); Lipase 232 U/L (23-300); Potassium 3.8 mmol/L (3.4-5.1); Sodium 134 mmol/L (137-145); Total Protein 7.7 g/dL (6.3-8.2)
[2021-05-23 21:33] VITALS: PULSE 74; RESP 23; O2SAT 96
--- NOTE | 2021-05-23 21:33 | ED.CHESTPAIN ---
HPI - Chest Pain General Chief Complaint: Chest Pain Stated Complaint: SOB, chest pressure, Nausea- post dialysis Time Seen by Provider: 05/23/21 20:57 Source: patient Mode of arrival: Wheelchair History of Present Illness HPI narrative: Patient is a 66-year-old female. History of diabetes. End-stage renal disease on dialysis. Stated that today while she was receiving dialysis she started having some chest discomfort. Some nausea and some shortness of breath. She stated that she told the dialysis nurses that the symptoms were going on. She stated that the nurses thought that she was having some anxiety. They offered to send her by EMS but she declined. She actually went home after dialysis to get something to eat before coming to the emergency department. No fevers. She did receive a full dialysis treatment today. Related Data Home Medications Medication Instructions Recorded Confirmed aspirin 81 mg tablet,delayed 81 mg PO QDAY #0 03/19/16 release multivitamin (Multiple Vitamins) 1 tab PO DAILY #0 tab 03/19/16 03/06/19 omega 3-wnw-jss-fish oil 1,000 mg 1,000 mg PO DAILY #0 03/19/16 (120 mg-180 mg) capsule (Fish Oil) amlodipine 10 mg tablet 10 mg PO HS #0 10/10/17 bupropion HCl 150 mg tablet,12 hr 150 mg PO BID #0 10/10/17 03/06/19 sustained-release (Wellbutrin SR) glimepiride 4 mg tablet (Amaryl) 8 mg PO DAILY #0 10/10/17 03/06/19 insulin glargine 100 unit/mL (3 30 units SUBCUT QPM #0 10/10/17 03/06/19 mL) subcutaneous pen (Basaglar KwikPen U-100 Insulin) levothyroxine 200 mcg tablet 1 tab PO DAILY #0 10/10/17 03/06/19 oxycodone 5 mg tablet 5 - 7.5 mg PO DAILY #0 10/10/17 03/06/19 ascorbic acid (vitamin C) 1,000 mg 1,000 mg PO DAILY 03/06/19 03/06/19 tablet,extended release ciprofloxacin HCl 250 mg tablet 250 mg PO [id number] 03/06/19 03/06/19 furosemide 20 mg tablet 20 mg PO DAILY 03/06/19 03/06/19 hydroxyzine HCl 25 mg tablet 25 - 50 mg PO QID PRN 03/06/19 03/06/19 rosuvastatin 10 mg tablet 10 mg PO DAILY 03/06/19 03/06/19 sevelamer carbonate 800 mg tablet 800 mg PO TID 03/06/19 03/06/19 terbinafine HCl 250 mg tablet 250 mg PO TUTHSA 03/06/19 03/06/19 Previous Rx's Medication Instructions Recorded cephalexin 500 mg capsule 500 mg PO BID #20 cap 03/06/19 sulfamethoxazole 400 1 tab PO DAILY #7 tab 08/19/19 mg-trimethoprim 80 mg tablet (Bactrim) Allergies Allergy/AdvReac Type Severity Reaction Status Date / Time prednisone Allergy Severe Agitated Verified 05/23/21 20:49 Review of Systems Constitutional Constitutional: Denies fever(s) and Denies headache(s) ENT Ears, Nose, Mouth, and Throat: Denies headache(s) Cardiovascular Cardiovascular: Reports as per HPI and Reports system reviewed and no additional complaints, except as documented Respiratory Respiratory: Reports as per HPI and Reports system reviewed and no additional complaints, except as documented Gastrointestinal Gastrointestinal: Reports system reviewed and no additional complaints, except as documented Integumentary/Breasts Skin/Breast: Reports system reviewed and no additional complaints, except as documented Neurologic Neurologic: Denies headache(s) Hematologic/Lymphatic On Anticoagulants: No Patient History Medical History Chicken pox Dialysis patient Measles (~196) Mumps (~1964) Surgical History Anesthesia Fistula (~2017) History of appendectomy (~1995) History of section (~1986) History of tonsillectomy (~1967) Family History Father CAD (coronary artery disease) [place] (myocardial infarction) Diabetes mellitus History of heart disease Hypertension Hyperlipidemia Mother Stroke Brother Diabetes mellitus Hyperlipidemia Hypertension Brother Diabetes mellitus Hypertension Sister Mental health problem Grandfather History of heart disease Grandmother Cancer Diabetes mellitus Grandfather History of heart disease Grandmother Cancer Diabetes mellitus Family/Other No problems noted. Social History Smoking Status: Former smoker Smoking Status: Former smoker alcohol intake frequency: 0-2 drinks per day Substance Use Type: does not use Exam Initial Vital Signs Initial Vital Signs: Vital Signs Temperature 98 F 05/23/21 20:45 Pulse Rate 72 05/23/21 20:45 Respiratory Rate 17 05/23/21 20:45 Blood Pressure 157/67 H 05/23/21 20:45 Pulse Oximetry 95 05/23/21 20:45 HENMT Head: normal to inspection and normocephalic Resp Effort & Inspection: normal respiratory effort Auscultation: clear to auscultation bilaterally Cardio Rate: regular rate Rhythm: regular rhythm GI Palpation: soft and No tender Skin General: no rashes or lesions noted Extrem General: normal to inspection Psych Appearance: grossly normal and well kempt Course Orders Ordered: ED Orders 05/23/21 20:50 XR chest 1V Stat EKG-12 Lead Stat 05/23/21 20:55 COVID19 -Nasal swab/Pre-Proc Stat 05/23/21 21:03 Complete Blood Count AUTO DIFF Stat Comprehensive Metabolic Panel Stat Lipase Stat Troponin & CK Cardiac Panel Stat 05/23/21 21:59 Troponin I Stat Vital Signs Vital signs: Vital Signs - 8 hr 05/23/21 21:33 05/23/21 22:00 05/23/21 22:30 Pulse Rate 74 72 72 Respiratory Rate 23 18 17 Blood Pressure 161/70 H 175/72 H Pulse Oximetry 96 95 96 05/23/21 23:00 05/23/21 23:30 05/24/21 00:00 Pulse Rate 71 65 67 Respiratory Rate 40 H 16 20 Blood Pressure Pulse Oximetry 97 98 97 MDM - Chest Pain Lab Data Attestation: I reviewed the patient's lab results. Result diagrams: 05/23/21 21:03 05/23/21 21:03 Labs: Lab Results 05/23/21 05/23/21 05/23/21 Range/Units 20:55 21:03 21:03 WBC 11.2 H (4.5-11.0) X10^3/uL RBC 3.80 L (4.0-5.2) X10^6/uL Hgb 11.0 L (12.0-16.0) g/dL Hct 32.8 L (36-46) % MCV 86.1 (80-100) fL MCH 29.0 (26-34) PG MCHC 33.7 (30-36) % RDW 14.9 H (11.6-14.8) % Plt Count 232 (150-400) X10^3/uL Neut % (Auto) 84.6 H (50-75) % Lymph % (Auto) 10.1 L (25-40) % [place] % (Auto) 4.3 (3-14) % Eos % (Auto) 0.2 L (2-4) % Baso % (Auto) 0.8 (0-2) % Neut # (Auto) 9500 H (8567-3091) /uL Lymph # (Auto) 1100 (0813-5146) /uL [place] # (Auto) 500 (0-900) /uL Eos # (Auto) 0 (0-450) /uL Baso # (Auto) 100 (0-100) /uL Sodium 134 L (137-145) mmol/L Potassium 3.8 (3.4-5.1) mmol/L Chloride 93 L (98-107) mmol/L Carbon Dioxide 30 (22-32) mmol/L BUN 23 H (7-17) mg/dL Creatinine 2.61 H (0.52-1.04) mg/dL Estimated GFR 18.4 L (>60) mL/min BUN/Creatinine Ratio 8.8 (6-22) Glucose 189 H (80-110) mg/dL Calcium 9.7 (8.4-10.2) mg/dL Total Bilirubin 0.3 (0.2-1.3) mg/dL AST 24 (14-36) IU/L ALT 26 (<35) IU/L Alkaline Phosphatase 149 H (38-126) U/L Total Creatine Kinase 41 (30-135) U/L CK-MB (CK-2) TNP CK-MB (CK-2) Rel Index TNP Troponin I < 0.012 (0.01-0.034) ng/mL Total Protein 7.7 (6.3-8.2) g/dL Albumin 4.6 (3.5-5.0) g/dL Globulin 3.1 (1.7-4.1) g/dL Albumin/Globulin Ratio 1.5 (1.0-2.8) Lipase 232 (23-300) U/L SARS-CoV-2 (PCR) Negative (Negative) 05/23/21 Range/Units 21:59 WBC (4.5-11.0) X10^3/uL RBC (4.0-5.2) X10^6/uL Hgb (12.0-16.0) g/dL Hct (36-46) % MCV (80-100) fL MCH (26-34) PG MCHC (30-36) % RDW (11.6-14.8) % Plt Count (150-400) X10^3/uL Neut % (Auto) (50-75) % Lymph % (Auto) (25-40) % [place] % (Auto) (3-14) % Eos % (Auto) (2-4) % Baso % (Auto) (0-2) % Neut # (Auto) (6942-8283) /uL Lymph # (Auto) (8815-2493) /uL [place] # (Auto) (0-900) /uL Eos # (Auto) (0-450) /uL Baso # (Auto) (0-100) /uL Sodium (137-145) mmol/L Potassium (3.4-5.1) mmol/L Chloride (98-107) mmol/L Carbon Dioxide (22-32) mmol/L BUN (7-17) mg/dL Creatinine (0.52-1.04) mg/dL Estimated GFR (>60) mL/min BUN/Creatinine Ratio (6-22) Glucose (80-110) mg/dL Calcium (8.4-10.2) mg/dL Total Bilirubin (0.2-1.3) mg/dL AST (14-36) IU/L ALT (<35) IU/L Alkaline Phosphatase (38-126) U/L Total Creatine Kinase (30-135) U/L CK-MB (CK-2) CK-MB (CK-2) Rel Index Troponin I < 0.012 (0.01-0.034) ng/mL Total Protein (6.3-8.2) g/dL Albumin (3.5-5.0) g/dL Globulin (1.7-4.1) g/dL Albumin/Globulin Ratio (1.0-2.8) Lipase (23-300) U/L SARS-CoV-2 (PCR) (Negative) Imaging Data Chest x-ray: Radiologist's Impression: [address] [address] XRay Report Signed Patient: Petra Lopez MR#: [id number] : 1955 Acct:[id number] Age/Sex: 66 / F Date of Service: 05/23/21 Loc: ED Accession Number: [id number] ?? Procedure: XR chest 1V Ordering Provider: Anjum Rooney D.O. PROCEDURE:? XR CHEST 1V ? INDICATIONS:? chest pain ? TECHNIQUE:? One view of the chest was acquired.? ? COMPARISON:? None. ? FINDINGS:? ? Surgical changes and devices:? None.? ? Lungs and pleura:? Scattered subsegmental atelectasis and/or scarring.? Patchy ill-defined and ground-glass mild opacities in both lung bases.? No focal consolidation.? No pleural effusion or pneumothorax.? Low lung volumes ? Mediastinum:? Mediastinal contours appear normal.? Heart size is normal.? ? Bones and chest wall:? No suspicious bony lesions.? Overlying soft tissues appear unremarkable.? ? IMPRESSION:? Mild patchy bibasilar opacities possibly atelectasis versus scarring or early pulmonary edema.? No definite acute consolidation. If there is persistent clinical diagnostic uncertainty, continued surveillance with short interval radiographic followup after treatment is recommended. ? ? Dictated by: Eddi Solis M.D. on 05/23/2021 at 22:01 ? ? Approved by: Eddi Solis M.D. on 05/23/2021 at 22:03?? ECG Data Attestation: I personally reviewed and interpreted this ECG as follows: Interpretation: Sinus rhythm Left axis deviation Right bundle branch block Ventricular rate [address] T wave changes MDM Narrative Medical decision making narrative: Chest x-ray and labs are unremarkable. EKG is nonspecific changes. She is currently asymptomatic. Troponins negative x2. Will discharge patient home and have her contact her primary doctor to discuss further workup. She was given return precautions and follow-up instructions. She expressed understanding and agreement. Discharge Plan Departure Patient Disposition: Home Clinical Impression: Atypical chest pain Instructions: DI for Atypical Chest Pain Activity Restrictions/Additional Instructions: I recommend that you keep all of your scheduled dialysis appointments. Continue to take all of your medications as directed. I also recommend you contact your primary doctor for follow-up to discuss the indications for either stress testing or referral to see Cardiology. Return to the emergency department for any new or worsening symptoms Prescriptions: No Action aspirin 81 MG tablet,delayed release (DR/EC) 81 mg PO QDAY Qty: 0 RF: 0 multivitamin [Multiple Vitamins] 1 EACH tablet 1 tab PO DAILY Qty: 0 RF: 0 omega 4-oye-bad-fish oil [Fish Oil] 1,000 mg (120 mg-180 mg) Capsule 1,000 mg PO DAILY Qty: 0 RF: 0 bupropion HCl [Wellbutrin SR] 150 MG tablet extended release 12 hr 150 mg PO BID Qty: 0 RF: 0 Basaglar KwikPen U-100 Insulin 100 UNIT/1 ML insulin pen 30 units subcut QPM Qty: 0 RF: 0 levothyroxine 200 MCG tablet 1 tab PO DAILY Qty: 0 RF: 0 oxycodone 5 MG tablet 5 - 7.5 mg PO DAILY Qty: 0 RF: 0 amlodipine 10 MG tablet 10 mg PO HS Qty: 0 RF: 0 glimepiride [Amaryl] 4 MG tablet 8 mg PO DAILY Qty: 0 RF: 0 sulfamethoxazole-trimethoprim [Bactrim] 400-80 mg tablet 1 tab PO DAILY Qty: 7 RF: 0 ascorbic acid (vitamin C) [Vitamin C] 1,000 mg tablet extended release 1,000 mg PO DAILY RF: 0 ciprofloxacin HCl 250 mg tablet 250 mg PO [id number] RF: 0 terbinafine HCl 250 mg tablet 250 mg PO TUTHSA RF: 0 hydroxyzine HCl 25 mg tablet 25 - 50 mg PO QID PRN (Reason: Anxiety) RF: 0 furosemide 20 mg tablet 20 mg PO DAILY RF: 0 rosuvastatin 10 mg tablet 10 mg PO DAILY RF: 0 sevelamer carbonate 800 mg tablet 800 mg PO TID RF: 0 cephalexin 500 mg capsule 500 mg PO BID Qty: 20 RF: 0 Referrals: Malgorzata Yin MD [Primary Care Provider] -
[2021-05-23 21:36] LABS: Troponin I < 0.012 ng/mL (0.01-0.034)
[2021-05-23 22:00] VITALS: BP 161/70; PULSE 72; RESP 18; O2SAT 95
[2021-05-23 22:30] VITALS: BP 175/72; PULSE 72; RESP 17; O2SAT 96
[2021-05-23 23:00] VITALS: PULSE 71; RESP 40; O2SAT 97
[2021-05-23 23:29] LABS: Troponin I < 0.012 ng/mL (0.01-0.034)
[2021-05-23 23:30] VITALS: PULSE 65; RESP 16; O2SAT 98
[2021-05-24] VITALS: PULSE 67; RESP 20; O2SAT 97
== END 2021-05-24 00:11 | disposition home or self-care (01) ==
PROVIDERS: Emergency Provider Emergency Medicine; PCP Student in an Organized Health Care Education/Training Program
DX: R07.89 Other chest pain (principal); R11.0 Nausea; R06.02 Shortness of breath; N18.6 End stage renal disease; Z99.2 Dependence on renal dialysis; Z20.822 Contact with and (suspected) exposure to COVID-19
CPT/HCPCS: 36415; 71045; 80053; 82550; 83690; 84484; 85025; 87635; 93005; 99284; C9803

== ENCOUNTER → 2021-07-29 11:36 | Outpatient (CLI) | payer MEDICARE, MEDICAID, SELFPAY ==
[2021-07-29 12:26] LABS: COVID19 -Nasal RAPID Negative (Negative)
== END ==
PROVIDERS: PCP Student in an Organized Health Care Education/Training Program; Visit Provider Nurse Practitioner Family
DX: Z20.822 Contact with and (suspected) exposure to COVID-19 (principal)
CPT/HCPCS: 87635

== ENCOUNTER → 2021-08-08 10:43 | Outpatient (CLI) | payer MEDICARE, MEDICAID, SELFPAY ==
--- NOTE | 2021-08-08 10:44 | DI.NM.S_ITS ---
PROCEDURE: NM ENIO PERF SPECT R&S PHARM Rest and pharmacological stress myocardial perfusion SPECT with gated imaging and ejection fraction RADIOPHARMACEUTICAL: 26.9 mCi Tc-99m tetrafosmin IV at rest and 27.5 mCi Tc-99m tetrafosmin IV at peak effect of pharmacological stress. [id number] was performed. INDICATIONS: Other chest pain TECHNIQUE: Radiopharmaceutical was injected at peak stress test, and also at rest. SPECT images were obtained. SPECT myocardial perfusion images were displayed in short axis, horizontal long axis, and vertical long axis views. Gated images were reviewed using Correlsense software. COMPARISON: None. CARDIAC STRESS: A pharmacologic stress test was performed under the supervision of an attending staff, using an infusion of lexiscan 0.4mg IV X1 . Hemodynamic data: There is normal blood pressure and heart rate response to pharmacologic stress. Symptoms: The patient had non-diagnostic chest pain with lexiscan. 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 No diagnostic changes of ischemia with stress; no significant ectopy. FINDINGS: Raw data: There is good myocardial uptake of radiotracer. No significant motion artifacts. Nohi-il-kaxot ratio is 0.36 (normal is less than 0.38 for tetrafosmin tracer). Left ventricle function: Gated images demonstrate normal left ventricular wall thickening. No segmental wall motion abnormalities. No transient ischemic dilation; TID is 1.17 (normal less than 1.3). Left ventricle resting end diastolic volume is 158 mL. Left ventricle stress ejection fraction is 74%; normal range is above 45%. Myocardial perfusion: There is normal distribution of activity in the right and left ventricular myocardium. No fixed or reversible perfusion defects. IMPRESSION: Low risk, normal pharmaceutical nuclear stress test 1) No perfusion evidence of ischemia or infarction. 2) Mildly enlarged left ventricle (resting LVEDV 158cc) with normal wall motion, and normal systolic function (EF post stress 74%). 3) No ECG evidence of ischemia with stress. 4) Non-diagnostic chest pain with lexiscan (pharmaceutical stress agent). 5) No prior nuclear stress test available for comparison. Dictated by: Aniket Barragan MD on 08/09/2021 at 13:00 Approved by: Aniket Barragan MD on 08/09/2021 at 13:03
== END ==
PROVIDERS: PCP Student in an Organized Health Care Education/Training Program; Referring Provider Student in an Organized Health Care Education/Training Program; Visit Provider Student in an Organized Health Care Education/Training Program
DX: R07.89 Other chest pain (principal)
CPT/HCPCS: 78452; 93017; A9502; J2785

== ENCOUNTER 2021-12-30 07:45 | Emergency (ER) | payer MEDICARE, OTHER, MEDICAID, SELFPAY ==
[2021-12-30 08:05] VITALS: BP 149/67; PULSE 75; RESP 18; TEMP 36.8; O2SAT 97; BMI 41.6
--- NOTE | 2021-12-30 08:11 | ED_ITS ---
HPI - General Adult General Chief complaint: Abdominal Pain Stated complaint: raging UTI Time Seen by Provider: 12/30/21 07:56 Source: patient Mode of arrival: Ambulatory Limitations: no limitations History of Present Illness HPI narrative: 66-year-old female. End-stage renal disease on dialysis. Received a full dialysis treatment yesterday. Her next 1 is scheduled for tomorrow. Stated that on Sunday she started to have symptoms consistent with her prior diagnosis of urinary tract infections. Is having frequency. She does still produce a small amount a urine. She is also having some left-sided flank pain. No fevers. No vomiting. Try to take some garlic at home to help with the symptoms but this did not help. Related Data Home Medications Medication Instructions Recorded Confirmed aspirin 81 mg tablet,delayed 81 mg PO QDAY #0 03/19/16 release multivitamin (Multiple Vitamins) 1 tab PO DAILY #0 tab 03/19/16 03/06/19 omega 0-usr-zhm-fish oil 1,000 mg 1,000 mg PO DAILY #0 03/19/16 (120 mg-180 mg) capsule (Fish Oil) amlodipine 10 mg tablet 10 mg PO HS #0 10/10/17 bupropion HCl 150 mg tablet,12 hr 150 mg PO BID #0 10/10/17 03/06/19 sustained-release (Wellbutrin SR) glimepiride 4 mg tablet (Amaryl) 8 mg PO DAILY #0 10/10/17 03/06/19 insulin glargine 100 unit/mL (3 30 units SUBCUT QPM #0 10/10/17 03/06/19 mL) subcutaneous pen (Basaglar KwikPen U-100 Insulin) levothyroxine 200 mcg tablet 1 tab PO DAILY #0 10/10/17 03/06/19 oxycodone 5 mg tablet 5 - 7.5 mg PO DAILY #0 10/10/17 03/06/19 ascorbic acid (vitamin C) 1,000 mg 1,000 mg PO DAILY 03/06/19 03/06/19 tablet,extended release ciprofloxacin HCl 250 mg tablet 250 mg PO [id number] 03/06/19 03/06/19 furosemide 20 mg tablet 20 mg PO DAILY 03/06/19 03/06/19 hydroxyzine HCl 25 mg tablet 25 - 50 mg PO QID PRN 03/06/19 03/06/19 rosuvastatin 10 mg tablet 10 mg PO DAILY 03/06/19 03/06/19 sevelamer carbonate 800 mg tablet 800 mg PO TID 03/06/19 03/06/19 terbinafine HCl 250 mg tablet 250 mg PO TUTHSA 03/06/19 03/06/19 Previous Rx's Medication Instructions Recorded cephalexin 500 mg capsule 500 mg PO BID #20 cap 03/06/19 sulfamethoxazole 400 1 tab PO DAILY #7 tab 08/19/19 mg-trimethoprim 80 mg tablet (Bactrim) sulfamethoxazole 400 1 tab PO DAILY 5 Days #5 tab 12/30/21 mg-trimethoprim 80 mg tablet (Bactrim) Allergies Allergy/AdvReac Type Severity Reaction Status Date / Time prednisone Allergy Severe Agitated Verified 05/23/21 20:49 Review of Systems Constitutional Constitutional: Denies fever(s) Gastrointestinal Gastrointestinal: Reports as per HPI and Reports system reviewed and no additional complaints, except as documented Genitourinary Genitourinary: Reports system reviewed and no additional complaints, except as documented and Reports as per HPI Musculoskeletal Musculoskeletal: Reports system reviewed and no additional complaints, except as documented and Reports as per HPI Patient History Medical History (Updated 12/30/21 @ 08:16 by Anjum Rooney DO) Chicken pox Dialysis patient Measles (~1960) Mumps (~1964) Surgical History Anesthesia Fistula (~2017) History of appendectomy (~1995) History of section (~1986) History of tonsillectomy (~1967) Family History Father CAD (coronary artery disease) [place] (myocardial infarction) Diabetes mellitus History of heart disease Hypertension Hyperlipidemia Mother Stroke Brother Diabetes mellitus Hyperlipidemia Hypertension Brother Diabetes mellitus Hypertension Sister Mental health problem Grandfather History of heart disease Grandmother Cancer Diabetes mellitus Grandfather History of heart disease Grandmother Cancer Diabetes mellitus Family/Other No problems noted. Social History Smoking Status: Former smoker Smoking Status: Former smoker alcohol intake frequency: 0-2 drinks per day Substance Use Type: does not use Exam Initial Vital Signs Initial Vital Signs: Vital Signs Temperature 98.2 F 12/30/21 08:05 Pulse Rate 75 12/30/21 08:05 Respiratory Rate 18 12/30/21 08:05 Blood Pressure 149/67 H 12/30/21 08:05 Pulse Oximetry 97 12/30/21 08:05 HENMT Head: normal to inspection and normocephalic Resp Effort & Inspection: normal respiratory effort Cardio Rate: regular rate GI Inspection: normal to inspection Neuro General: patient alert, patient awake and moves all extremities Extrem General: normal to inspection Course Orders Ordered: ED Orders 12/30/21 08:11 Urinalysis and Microscopic Stat Urine Culture Stat Vital Signs Vital signs: Vital Signs - 8 hr 12/30/21 08:05 Temperature 98.2 F Pulse Rate 75 Respiratory Rate 18 Blood Pressure 149/67 H Pulse Oximetry 97 Medical Decision Making Medical Records Medical records reviewed: Yes I reviewed the patient's medical records. Lab Data Labs: Lab Results 12/30/21 Range/Units 08:14 Urine Color Yellow Urine Appearance Cloudy Urine pH 8.0 (4.5-8.0) Ur Specific [place] 1.010 (1.000-1.035) Urine Protein 2+ H (Negative) Urine Glucose (UA) Negative (Negative) g/dL Urine Ketones Negative (NEGATIVE) Urine Occult Blood 2+ H (Negative) Urine Nitrate Negative (Negative) Urine Bilirubin Negative (NEGATIVE) Urine Urobilinogen 0.2 (0.2) E.U./dL Ur Leukocyte Esterase 3+ H (NEGATIVE) Urine RBC 5-10/hpf H (0-5/HPF) Urine WBC >100/hpf H (0-5/HPF) Ur Squamous Epith Cells 1-5 /hpf (0-5/HPF) Urine Bacteria Many (>30) H (None) Ur Culture Indicated? Culture not indicate MDM Narrative Medical decision making narrative: I have seen this patient in the past for very similar symptoms. Her last urine culture did show a pansensitive E coli. Patient states that she has been on both Bactrim and doxycycline in the past she felt that the Bactrim work better. Given her dialysis status the does need to be a dose adjustment. Will start the patient on antibiotics. No indication for admission hospital. She will continue with her dialysis treatments. She was given return precautions. She expressed understanding and agreement Discharge Plan Departure Patient Disposition: Home Clinical Impression: UTI (urinary tract infection) Instructions: DI for Urinary Tract Infection (UTI) Activity Restrictions/Additional Instructions: I do recommend that you take the antibiotics as directed. Continue to keep all of your dialysis appointments. Return to the emergency department for any new or worsening symptoms. Prescriptions: New sulfamethoxazole-trimethoprim [Bactrim] 400-80 mg tablet 1 tab PO DAILY 5 Days Qty: 5 0RF No Action aspirin 81 MG tablet,delayed release (DR/EC) 81 mg PO QDAY Qty: 0 0RF multivitamin [Multiple Vitamins] 1 EACH tablet 1 tab PO DAILY Qty: 0 0RF omega 9-dcc-yao-fish oil [Fish Oil] 1,000 mg (120 mg-180 mg) Capsule 1,000 mg PO DAILY Qty: 0 0RF bupropion HCl [Wellbutrin SR] 150 MG tablet extended release 12 hr 150 mg PO BID Qty: 0 0RF Basaglar KwikPen U-100 Insulin 100 UNIT/1 ML insulin pen 30 units subcut QPM Qty: 0 0RF levothyroxine 200 MCG tablet 1 tab PO DAILY Qty: 0 0RF oxycodone 5 MG tablet 5 - 7.5 mg PO DAILY Qty: 0 0RF amlodipine 10 MG tablet 10 mg PO HS Qty: 0 0RF glimepiride [Amaryl] 4 MG tablet 8 mg PO DAILY Qty: 0 0RF sulfamethoxazole-trimethoprim [Bactrim] 400-80 mg tablet 1 tab PO DAILY Qty: 7 0RF ascorbic acid (vitamin C) [Vitamin C] 1,000 mg tablet extended release 1,000 mg PO DAILY 0RF Label Comments: Take 1 tablet by mouth once a day ciprofloxacin HCl 250 mg tablet 250 mg PO [id number] 0RF Label Comments: take 1 tablet by mouth every 12 hours for 7 days terbinafine HCl 250 mg tablet 250 mg PO TUTHSA 0RF Label Comments: take 1 tablet by mouth 3 DAYS PER WEEK SUNDAY, SUNDAY, SATURDAYS hydroxyzine HCl 25 mg tablet 25 - 50 mg PO QID PRN (Reason: Anxiety) 0RF Label Comments: take 1 to 2 tablets by mouth four times a day if needed for anxiety furosemide 20 mg tablet 20 mg PO DAILY 0RF Label Comments: take 1 tablet by mouth once daily rosuvastatin 10 mg tablet 10 mg PO DAILY 0RF sevelamer carbonate 800 mg tablet 800 mg PO TID 0RF Label Comments: take 1 tablet by mouth three times a day with meals SWALLOW TABLET WHOLE DO NOT CRUSH BREAK OR CHEW cephalexin 500 mg capsule 500 mg PO BID Qty: 20 0RF Referrals: Malgorzata Yin MD [Primary Care Provider] -
[2021-12-30 08:16] LABS: Appearance Urine UA CLOUDY; Bilirubin Urine UA NEGATIVE (NEGATIVE); Color Urine UA YELLOW; Glucose Urine UA NEGATIVE (Negative); Ketones Urine UA NEGATIVE (NEGATIVE); Leukocyte Esterase Urine UA 3+ (NEGATIVE); Nitrite Urine UA NEGATIVE (Negative); Occult Blood Urine UA 2+ (Negative); Protein Urine UA 2+ (Negative); Urobilinogen Urine UA 0.2 E.U./dL (0.2)
[2021-12-30 08:24] LABS: Bacteria Urine Many (>30); RBC Urine 5-10/HPF (0-5/HPF); Squamous Epithelial Cell Urine 1-5 /HPF (0-5/HPF); WBC Urine >100/HPF (0-5/HPF)
== END 2021-12-30 08:44 | disposition home or self-care (01) ==
PROVIDERS: Emergency Provider Emergency Medicine; PCP Student in an Organized Health Care Education/Training Program
DX: N39.0 Urinary tract infection, site not specified (principal)
CPT/HCPCS: 81001; 87077; 87086; 87186; 99281; 99282

== ENCOUNTER 2022-03-15 06:48 | Emergency (ER) | payer MEDICARE, MEDICAID, SELFPAY ==
[2022-03-15 07:04] VITALS: BP 153/68; PULSE 59; RESP 20; TEMP 36.6; O2SAT 100; BMI 38.9
[2022-03-15 07:20] LABS: Appearance Urine UA TURBID; Bilirubin Urine UA NEGATIVE (NEGATIVE); Color Urine UA YELLOW; Glucose Urine UA NEGATIVE (Negative); Ketones Urine UA NEGATIVE (NEGATIVE); Leukocyte Esterase Urine UA 3+ (NEGATIVE); Nitrite Urine UA NEGATIVE (Negative); Occult Blood Urine UA 3+ (Negative); Protein Urine UA 2+ (Negative); Urobilinogen Urine UA 0.2 E.U./dL (0.2)
[2022-03-15 07:22] LABS: RBC Urine >100/HPF (0-5/HPF); WBC Urine >100/HPF (0-5/HPF)
[2022-03-15 07:23] LABS: Bacteria Urine None Seen; Culture Indicated Urine Specimen Cultured
--- NOTE | 2022-03-15 07:49 | ED.FEMALEGU ---
HPI - Female Genitourinary General Chief complaint: Urogenital-Female Stated complaint: uti Time Seen by Provider: 03/15/22 07:06 Source: patient Mode of arrival: Ambulatory History of Present Illness HPI Narrative: The patient is a 67-year-old female history of hypertension diabetes hemodialysis on Sunday presenting today with painful frequent urination. She actually says it started 5 days ago. She thought she could get rid of it with cranberry juice. She really has no nausea vomiting no back pain but generalized weakness. She was encouraged to come to the ED yesterday while at dialysis however due to transportation issues she was unable to do so. She is currently afebrile here not tachycardic. Related Data Home Medications Medication Instructions Recorded Confirmed aspirin 81 mg tablet,delayed 81 mg PO QDAY ##0 03/19/16 release multivitamin (Multiple Vitamins 1 tab PO DAILY #0 tabs 03/19/16 03/06/19 tablet) omega 5-ooh-kco-fish oil 1,000 mg 1,000 mg PO DAILY ##0 03/19/16 (120 mg-180 mg) capsule (Fish Oil) amlodipine 10 mg tablet 10 mg PO HS ##0 10/10/17 bupropion HCl 150 mg tablet,12 hr 150 mg PO BID ##0 10/10/17 03/06/19 sustained-release (Wellbutrin SR) glimepiride 4 mg tablet (Amaryl) 8 mg PO DAILY ##0 10/10/17 03/06/19 insulin glargine 100 unit/mL (3 30 units SUBCUT QPM ##0 10/10/17 03/06/19 mL) subcutaneous pen (Basaglar KwikPen U-100 Insulin) levothyroxine 200 mcg tablet 1 tab PO DAILY ##0 10/10/17 03/06/19 oxycodone 5 mg tablet 5 - 7.5 mg PO DAILY ##0 10/10/17 03/06/19 ascorbic acid (vitamin C) 1,000 mg 1,000 mg PO DAILY 03/06/19 03/06/19 tablet,extended release ciprofloxacin HCl 250 mg tablet 250 mg PO [id number] 03/06/19 03/06/19 furosemide 20 mg tablet 20 mg PO DAILY 03/06/19 03/06/19 hydroxyzine HCl 25 mg tablet 25 - 50 mg PO QID PRN Anxiety 03/06/19 03/06/19 rosuvastatin 10 mg tablet 10 mg PO DAILY 03/06/19 03/06/19 sevelamer carbonate 800 mg tablet 800 mg PO TID 03/06/19 03/06/19 terbinafine HCl 250 mg tablet 250 mg PO TUTHSA 03/06/19 03/06/19 Previous Rx's Medication Instructions Recorded cephalexin 500 mg capsule 500 mg PO BID #20 caps 03/06/19 sulfamethoxazole 400 1 tab PO DAILY #7 tabs 08/19/19 mg-trimethoprim 80 mg tablet (Bactrim) cephalexin 500 mg capsule 500 mg PO BID 7 days #14 caps 03/15/22 Allergies Allergy/AdvReac Type Severity Reaction Status Date / Time prednisone Allergy Severe Agitated Verified 05/23/21 20:49 Review of Systems Review of Systems Narrative: GENERAL: Denies chills, fatigue, malaise, fever, sweats, travel HEENT: Denies sinus pain, ear pain, sore throat, difficulty swallowing, neck pain RESPIRATORY: Denies dyspnea, cough, wheezing, hemoptysis, sputum. CARDIOVASCULAR: Denies chest pain, palpitations, orthopnea, edema GASTROINTESTINAL: Denies nausea, vomiting, abdominal pain, diarrhea, constipation, melena. : See HPI MUSCULOSKELETAL: Denies weakness, joint pain, or bony pain SKIN: No rash, no erythema, no pruritus NEUROLOGIC: Denies weakness, dizziness, headache, numbness, change in speech, confusion PSYCHIATRIC: No concerning psychosocial issues. 12 point review of systems is negative except for those stated above and HPI Patient History Medical History (Updated 03/15/22 @ 08:59 by Magdalena Gallagher DO) Chicken pox Dialysis patient Measles (~196) Mumps (~1964) Surgical History Anesthesia Fistula (~2017) History of appendectomy (~1995) History of section (~1986) History of tonsillectomy (~1967) Family History Father CAD (coronary artery disease) [place] (myocardial infarction) Diabetes mellitus History of heart disease Hypertension Hyperlipidemia Mother Stroke Brother Diabetes mellitus Hyperlipidemia Hypertension Brother Diabetes mellitus Hypertension Sister Mental health problem Grandfather History of heart disease Grandmother Cancer Diabetes mellitus Grandfather History of heart disease Grandmother Cancer Diabetes mellitus Family/Other No problems noted. alcohol intake frequency: 0-2 drinks per day Substance Use Type: does not use Exam Initial Vital Signs Initial Vital Signs: Vital Signs Temperature 98 F 03/15/22 07:04 Pulse Rate 59 L 03/15/22 07:04 Respiratory Rate 20 03/15/22 07:04 Blood Pressure 153/68 H 03/15/22 07:04 Pulse Oximetry 100 03/15/22 07:04 Oxygen Delivery Method 03/15/22 07:04 GENERAL: Weak 67-year-old female HEENT: Head atraumatic,EOMI, pupils reactive, face symmetric, moist mucous membranes CARDIOVASCULAR: Regular rate and rhythm without murmurs, rubs or gallops. RESPIRATORY: Breath sounds equal bilaterally, no wheezes rales or rhonchi. ABDOMEN: Soft, nontender. Normoactive bowel sounds all 4 quadrants. No guarding or rebound. EXTREMITIES: Normal range of motion, no clubbing or edema. Neurovascularly intact NEUROLOGICAL: Alert and oriented x4. SKIN: Warm, dry, no laceration, no petechiae, no rashes or lesions. Course Orders Ordered: ED Orders 03/15/22 06:55 Urinalysis and Microscopic Stat Urine Culture Stat 03/15/22 08:15 CBC Auto Diff [Complete Blood Count AUTO DIFF] Stat CMP [Comprehensive Metabolic Panel] Stat Lactate (Lactic Acid) Stat Procalcitonin Stat 03/15/22 08:44 Blood Culture Stat Vital Signs Vital signs: Vital Signs - 8 hr 03/15/22 07:04 Temperature 98 F Pulse Rate 59 L Respiratory Rate 20 Blood Pressure 153/68 H Pulse Oximetry 100 Oxygen Delivery Method Room Air MDM - Female Genitourinary Lab Data Result diagrams: 03/15/22 08:15 03/15/22 08:15 Labs: Lab Results 03/15/22 03/15/22 03/15/22 Range/Units 06:55 08:15 08:15 WBC 10.8 (4.5-11.0) X10^3/uL RBC 3.60 L (4.0-5.2) X10^6/uL Hgb 11.2 L (12.0-16.0) g/dL Hct 32.6 L (36-46) % MCV 90.6 (80-100) fL MCH 31.0 (26-34) PG MCHC 34.2 (30-36) % RDW 13.9 (11.6-14.8) % Plt Count 194 (150-400) X10^3/uL Neut % (Auto) 75.8 H (50-75) % Lymph % (Auto) 15.1 L (25-40) % [place] % (Auto) 6.4 (3-14) % Eos % (Auto) 2.3 (2-4) % Baso % (Auto) 0.4 (0-2) % Neut # (Auto) 8200 H (5547-0800) /uL Lymph # (Auto) 1600 (7046-7609) /uL [place] # (Auto) 700 (0-900) /uL Eos # (Auto) 300 (0-450) /uL Baso # (Auto) 0 (0-100) /uL Sodium 133 L (137-145) mmol/L Potassium 4.9 (3.4-5.1) mmol/L Chloride 92 L (98-107) mmol/L Carbon Dioxide 33 H (22-32) mmol/L BUN 25 H (7-17) mg/dL Creatinine 4.11 H (0.52-1.04) mg/dL Estimated GFR 11 L (>60) mL/min BUN/Creatinine Ratio 6.1 (6-22) Glucose 70 L (80-110) mg/dL Lactate (0.7-2.1) mmol/L Calcium 9.2 (8.4-10.2) mg/dL Total Bilirubin 0.3 (0.2-1.3) mg/dL AST 21 (14-36) IU/L ALT 35 H (<35) IU/L Alkaline Phosphatase 79 (38-126) U/L Total Protein 7.4 (6.3-8.2) g/dL Albumin 4.4 (3.5-5.0) g/dL Globulin 3.0 (1.7-4.1) g/dL Albumin/Globulin Ratio 1.5 (1.0-2.8) Procalcitonin 0.28 (<0.5) ng/mL Urine Color Yellow Urine Appearance Turbid Urine pH 8.0 (4.5-8.0) Ur Specific [place] 1.010 (1.000-1.035) Urine Protein 2+ H (Negative) Urine Glucose (UA) Negative (Negative) g/dL Urine Ketones Negative (NEGATIVE) Urine Occult Blood 3+ H (Negative) Urine Nitrate Negative (Negative) Urine Bilirubin Negative (NEGATIVE) Urine Urobilinogen 0.2 (0.2) E.U./dL Ur Leukocyte Esterase 3+ H (NEGATIVE) Urine RBC >100/hpf H (0-5/HPF) Urine WBC >100/hpf H (0-5/HPF) Urine Bacteria None seen (None) Ur Culture Indicated? Specimen cultured 03/15/22 Range/Units 08:15 WBC (4.5-11.0) X10^3/uL RBC (4.0-5.2) X10^6/uL Hgb (12.0-16.0) g/dL Hct (36-46) % MCV (80-100) fL MCH (26-34) PG MCHC (30-36) % RDW (11.6-14.8) % Plt Count (150-400) X10^3/uL Neut % (Auto) (50-75) % Lymph % (Auto) (25-40) % [place] % (Auto) (3-14) % Eos % (Auto) (2-4) % Baso % (Auto) (0-2) % Neut # (Auto) (0132-6732) /uL Lymph # (Auto) (5703-9333) /uL [place] # (Auto) (0-900) /uL Eos # (Auto) (0-450) /uL Baso # (Auto) (0-100) /uL Sodium (137-145) mmol/L Potassium (3.4-5.1) mmol/L Chloride (98-107) mmol/L Carbon Dioxide (22-32) mmol/L BUN (7-17) mg/dL Creatinine (0.52-1.04) mg/dL Estimated GFR (>60) mL/min BUN/Creatinine Ratio (6-22) Glucose (80-110) mg/dL Lactate 0.9 (0.7-2.1) mmol/L Calcium (8.4-10.2) mg/dL Total Bilirubin (0.2-1.3) mg/dL AST (14-36) IU/L ALT (<35) IU/L Alkaline Phosphatase (38-126) U/L Total Protein (6.3-8.2) g/dL Albumin (3.5-5.0) g/dL Globulin (1.7-4.1) g/dL Albumin/Globulin Ratio (1.0-2.8) Procalcitonin (<0.5) ng/mL Urine Color Urine Appearance Urine pH (4.5-8.0) Ur Specific [place] (1.000-1.035) Urine Protein (Negative) Urine Glucose (UA) (Negative) g/dL Urine Ketones (NEGATIVE) Urine Occult Blood (Negative) Urine Nitrate (Negative) Urine Bilirubin (NEGATIVE) Urine Urobilinogen (0.2) E.U./dL Ur Leukocyte Esterase (NEGATIVE) Urine RBC (0-5/HPF) Urine WBC (0-5/HPF) Urine Bacteria (None) Ur Culture Indicated? MDM Narrative Medical decision making narrative: Patient overall appears weak. However blood work is reassuring she does obviously have a UTI. No sign of sepsis at this time. Outpatient management only. Discharge Plan Departure Patient Disposition: Home Clinical Impression: UTI (urinary tract infection) Instructions: DI for Urinary Tract Infection (UTI) Activity Restrictions/Additional Instructions: *You have been diagnosed with UTI *What to do: At this time we do have a bladder infection. Please take antibiotics as prescribed. Continue dialysis *Continue to take medications as directed Keflex 500 mg twice a day for 7 days, take on dialysis days, talk to your kidney doctor about this--> SENT TO [facility] *Follow up with your primary care provider in 2-3 days or call [phone] *Return to ER if you should have increasing weakness fever or any new, worsening or concerning symptoms Prescriptions: New cephalexin 500 mg capsule 500 mg PO BID 7 Days Qty: 14 0RF Rx Instructions: dialysis dosing No Action aspirin 81 MG tablet,delayed release (DR/EC) 81 mg PO QDAY Qty: 0 multivitamin [Multiple Vitamins] 1 EACH tablet 1 tab PO DAILY Qty: 0 omega 2-ipo-jid-fish oil [Fish Oil] 1,000 mg (120 mg-180 mg) Capsule 1,000 mg PO DAILY Qty: 0 bupropion HCl [Wellbutrin SR] 150 MG tablet extended release 12 hr 150 mg PO BID Qty: 0 Basaglar KwikPen U-100 Insulin 100 UNIT/1 ML insulin pen 30 units subcut QPM Qty: 0 levothyroxine 200 MCG tablet 1 tab PO DAILY Qty: 0 oxycodone 5 MG tablet 5 - 7.5 mg PO DAILY Qty: 0 amlodipine 10 MG tablet 10 mg PO HS Qty: 0 glimepiride [Amaryl] 4 MG tablet 8 mg PO DAILY Qty: 0 sulfamethoxazole-trimethoprim [Bactrim] 400-80 mg tablet 1 tab PO DAILY Qty: 7 0RF ascorbic acid (vitamin C) [Vitamin C] 1,000 mg tablet extended release 1,000 mg PO DAILY Label Comments: Take 1 tablet by mouth once a day ciprofloxacin HCl 250 mg tablet 250 mg PO [id number] Label Comments: take 1 tablet by mouth every 12 hours for 7 days terbinafine HCl 250 mg tablet 250 mg PO TUTHSA Label Comments: take 1 tablet by mouth 3 DAYS PER WEEK SUNDAY, SUNDAY, SATURDAYS hydroxyzine HCl 25 mg tablet 25 - 50 mg PO QID PRN (Reason: Anxiety) Label Comments: take 1 to 2 tablets by mouth four times a day if needed for anxiety furosemide 20 mg tablet 20 mg PO DAILY Label Comments: take 1 tablet by mouth once daily rosuvastatin 10 mg tablet 10 mg PO DAILY sevelamer carbonate 800 mg tablet 800 mg PO TID Label Comments: take 1 tablet by mouth three times a day with meals SWALLOW TABLET WHOLE DO NOT CRUSH BREAK OR CHEW cephalexin 500 mg capsule 500 mg PO BID Qty: 20 0RF Referrals: Renata Ibrahim MD [Primary Care Provider] - Visit Report Forms: Patient Portal/API
[2022-03-15 08:30] LABS: Add Manual Diff / Slide Review NO; Basophils Absolute Auto 0 /uL (0-100); Basophils Percent Auto 0.4 % (0-2); Eosinophils Absolute Auto 300 /uL (0-450); Eosinophils Percent Auto 2.3 % (2-4); Hematocrit 32.6 % (36-46); Hemoglobin 11.2 g/dL (12.0-16.0); Lymphocytes Absolute Auto 1600 /uL (1100-4500); Lymphocytes Percent Auto 15.1 % (25-40); Mean Corpuscular HGB Conc 34.2 % (30-36); Mean Corpuscular Volume 90.6 fL (80-100); Monocytes Absolute Auto 700 /uL (0-900); Monocytes Percent Auto 6.4 % (3-14); Neutrophils Absolute Auto 8200 /uL (1500-7000); Neutrophils Percent Auto 75.8 % (50-75); Platelet Count 194 X10^3/uL (150-400); Red Cell Distribution Width 13.9 % (11.6-14.8); White Blood Cell Count 10.8 X10^3/uL (4.5-11.0)
[2022-03-15 08:40] LABS: Alanine Aminotransferase 35 IU/L (<35); Albumin 4.4 g/dL (3.5-5.0); Albumin Globulin Ratio 1.5 (1.0-2.8); Alkaline Phosphatase 79 U/L (38-126); Aspartate Aminotransferase 21 IU/L (14-36); BUN Creatinine Ratio 6.1 (6-22); Bilirubin Total 0.3 mg/dL (0.2-1.3); Blood Urea Nitrogen 25 mg/dL (7-17); Calcium 9.2 mg/dL (8.4-10.2); Carbon Dioxide 33 mmol/L (22-32); Chloride 92 mmol/L (98-107); Estimated Glomerular Filt Rate 11 mL/min (>60); Glucose 70 mg/dL (80-110); HEMOLYSIS < 15 (0-50); Potassium 4.9 mmol/L (3.4-5.1); Sodium 133 mmol/L (137-145); Total Protein 7.4 g/dL (6.3-8.2)
[2022-03-15 08:41] LABS: Lactate (Lactic Acid) 0.9 mmol/L (0.7-2.1)
[2022-03-15 08:56] LABS: Procalcitonin 0.28 ng/mL (<0.5)
[2022-03-15 12:07] LABS: Cholesterol 116 mg/dL (140-199); HDL Cholesterol 31 mg/dL (40-60); LDL Cholesterol Calculated 50 mg/dL (<100); Triglycerides 177 mg/dL (35-150)
[2022-03-15 12:52] LABS: Hemoglobin A1C% w Est Avg Glu 5.3 % (4.0-6.0)
== END 2022-03-15 09:11 | disposition home or self-care (01) ==
PROVIDERS: Nurse Practitioner; Emergency Provider Emergency Medicine; PCP Family Medicine
DX: N39.0 Urinary tract infection, site not specified (principal)
CPT/HCPCS: 36415; 80053; 80061; 81001; 83036; 83605; 84145; 85025; 87040; 87077; 87086; 87186; 99283

== ENCOUNTER → 2022-05-17 08:36 | Outpatient (CLI) | payer MEDICARE, MEDICAID, SELFPAY ==
--- NOTE | 2022-05-17 | DI.US.S_ITS ---
PROCEDURE: US CAROTID DOPPLER BI INDICATIONS: Retinal hemorrhage, unspecified eye TECHNIQUE: Color and pulse Doppler interrogation was performed of both carotid systems, with image documentation and velocity measurements. COMPARISON: None. FINDINGS: Stenosis calculations are based on SRU (Society of Radiologists in Ultras[employer]) criteria. The flow velocities and the arterial waveforms are normal within both carotid arterial systems. Atherosclerotic plaque is seen on both sides, left worse than right. The estimated degree of internal carotid artery stenosis is less than 50%. Antegrade flow is confirmed within both vertebral arteries, although the right vertebral artery is not well seen. IMPRESSION: No hemodynamically significant stenosis is seen. Atherosclerotic plaque is noted bilaterally. Dictated by: William Zepeda M.D. on 05/17/2022 at 9:51 Approved by: William Zepeda M.D. on 05/17/2022 at 9:52
== END ==
PROVIDERS: PCP Family Medicine; Referring Provider Family Medicine; Visit Provider Family Medicine
DX: I65.23 Occlusion and stenosis of bilateral carotid arteries (principal); E11.319 Type 2 diabetes mellitus with unspecified diabetic retinopathy without macular edema; H35.60 Retinal hemorrhage, unspecified eye; E11.8 Type 2 diabetes mellitus with unspecified complications
CPT/HCPCS: 93880

== ENCOUNTER → 2023-01-19 14:32 | Outpatient (CLI) | payer MEDICARE, MEDICAID, SELFPAY ==
--- NOTE | 2023-01-19 | DI.MG.S_ITS ---
BILATERAL DIGITAL SCREENING MAMMOGRAM 3D/2D WITH CAD: 01/19/2023 CLINICAL: Routine screening. Family history of breast cancer. Comparison is made to exams dated: 07/24/2020 mammogram, 10/11/2017 mammogram, and 11/17/2014 mammogram - [facility]. There are scattered areas of fibroglandular density in both breasts (category b / 25%-50% glandular tissue). Current study was also evaluated with a Computer Aided Detection (CAD) system. There are benign calcifications in both breasts. No significant masses, calcifications, or other findings are seen in either breast. There has been no significant interval change. IMPRESSION: BENIGN There is no mammographic evidence of malignancy. A 1 year screening mammogram is recommended. Based on the Tyrer Cuzick model (a risk assessment model) the patient's lifetime risk is 4.9% and her 10 year risk is 2.3%. According to the ACR, ACS, and NCCN guidelines, an annual breast MRI exam along with mammogram is recommended if the patient's lifetime risk is 20% or greater. This exam was interpreted at Station ID: [id number]. NOTE: For mammograms, a report in lay terms will be sent to the patient. Approximately 15% of breast malignancies will not be visualized mammographically. In the management of a palpable breast mass, a negative mammogram must not discourage biopsy of a clinically suspicious lesion. Electronically Signed By: Andi traore/magnus:01/19/2023 17:12:16 letter sent: Normal Exam ACR BI-RADS Category 2: Benign Finding(s) 3342F
== END ==
PROVIDERS: PCP Family Medicine; Referring Provider Family Medicine; Visit Provider Family Medicine
DX: Z12.31 Encounter for screening mammogram for malignant neoplasm of breast (principal); Z80.3 Family history of malignant neoplasm of breast
CPT/HCPCS: 77063; 77067

== ENCOUNTER 2023-06-28 15:59 | Emergency (ER) | payer MEDICARE, MEDICAID, SELFPAY ==
[2023-06-28 16:03] VITALS: BP 104/55; PULSE 88; RESP 16; TEMP 37.4; O2SAT 100; BMI 37.5
[2023-06-28 16:08] VITALS: BP 104/55; PULSE 95
[2023-06-28 16:30] VITALS: BP 110/58; PULSE 58; O2SAT 93
--- NOTE | 2023-06-28 16:47 | ED.FEMALEGU ---
HPI - Female Genitourinary General Chief complaint: Urogenital-Female Stated complaint: unable to urinate, pain, full bladder Time Seen by Provider: 06/28/23 16:06 Source: patient Mode of arrival: Wheelchair History of Present Illness HPI Narrative: 68-year-old female with history of ESRD on Sunday dialysis, hypertension, diabetes presents by private vehicle for inability to urinate. Patient underwent cystoscopy and laparoscopic colectomy 3 days ago at [place] and since her cystoscopy has had difficulty completely emptying her bladder. She states that she is gone to the office twice to have her bladder drained, each time more than 1000 mL has come out. Last dialysis session was just prior to arrival in the emergency department. Related Data Home Medications Medication Instructions Recorded Confirmed aspirin 81 mg tablet,delayed 81 mg PO QDAY ##0 03/19/16 release multivitamin (Multiple Vitamins 1 tab PO DAILY #0 tabs 03/19/16 03/06/19 tablet) omega 4-rrk-ewl-fish oil 1,000 mg 1,000 mg PO DAILY ##0 03/19/16 (120 mg-180 mg) capsule (Fish Oil) amlodipine 10 mg tablet 10 mg PO HS ##0 10/10/17 bupropion HCl 150 mg tablet,12 hr 150 mg PO BID ##0 10/10/17 03/06/19 sustained-release (Wellbutrin SR) glimepiride 4 mg tablet (Amaryl) 8 mg PO DAILY ##0 10/10/17 03/06/19 insulin glargine 100 unit/mL (3 30 units SUBCUT QPM ##0 10/10/17 03/06/19 mL) subcutaneous pen (Basaglar KwikPen U-100 Insulin) levothyroxine 200 mcg tablet 1 tab PO DAILY ##0 10/10/17 03/06/19 oxycodone 5 mg tablet 5 - 7.5 mg PO DAILY ##0 10/10/17 03/06/19 ascorbic acid (vitamin C) 1,000 mg 1,000 mg PO DAILY 03/06/19 03/06/19 tablet,extended release ciprofloxacin HCl 250 mg tablet 250 mg PO [id number] 03/06/19 03/06/19 furosemide 20 mg tablet 20 mg PO DAILY 03/06/19 03/06/19 hydroxyzine HCl 25 mg tablet 25 - 50 mg PO QID PRN Anxiety 03/06/19 03/06/19 rosuvastatin 10 mg tablet 10 mg PO DAILY 03/06/19 03/06/19 sevelamer carbonate 800 mg tablet 800 mg PO TID 03/06/19 03/06/19 terbinafine HCl 250 mg tablet 250 mg PO TUTHSA 03/06/19 03/06/19 Previous Rx's Medication Instructions Recorded cephalexin 500 mg capsule 500 mg PO BID #20 caps 03/06/19 sulfamethoxazole 400 1 tab PO DAILY #7 tabs 08/19/19 mg-trimethoprim 80 mg tablet (Bactrim) ciprofloxacin HCl 500 mg tablet 500 mg PO BID #14 tabs 03/18/22 (Cipro) tamsulosin 0.4 mg capsule (Flomax) 0.4 mg PO DAILY #30 caps 06/28/23 Allergies Allergy/AdvReac Type Severity Reaction Status Date / Time prednisone Allergy Severe Agitated Verified 05/23/21 20:49 Review of Systems Review of Systems Narrative: Negative except as noted above Patient History Medical History (Updated 07/03/23 @ 18:27 by Alysha Rashid MD) Mumps (~1964) Measles (~1960) Chicken pox Dialysis patient Surgical History Anesthesia Fistula (~2017) History of appendectomy (~1995) History of section (~1986) History of tonsillectomy (~1967) Family History Father CAD (coronary artery disease) [place] (myocardial infarction) Diabetes mellitus History of heart disease Hypertension Hyperlipidemia Mother Stroke Brother Diabetes mellitus Hyperlipidemia Hypertension Brother Diabetes mellitus Hypertension Sister Mental health problem Grandfather History of heart disease Grandmother Cancer Diabetes mellitus Grandfather History of heart disease Grandmother Cancer Diabetes mellitus Family/Other No problems noted. alcohol intake frequency: 0-2 drinks per day Substance Use Type: does not use Exam Initial Vital Signs Initial Vital Signs: Vital Signs Temperature 99.3 F 06/28/23 16:03 Pulse Rate 88 06/28/23 16:03 Respiratory Rate 16 06/28/23 16:03 Blood Pressure 104/55 L 06/28/23 16:03 Pulse Oximetry 100 06/28/23 16:03 Oxygen Delivery Method Room Air 06/28/23 16:03 Const: Awake, alert, no acute distress, nontoxic appearing Eyes: PERRL, EOMI, conjunctiva normal ENT: Atraumatic, dentition normal, mucous membranes moist Cardiac: regular rate, regular rhythm RESP: unlabored, clear bilaterally, no wheezing GI: Atraumatic, soft, nontender, nondistended, no rebound, no guarding MSK: Atraumatic, full range of motion, pulses equal Skin: Warm, Dry, surgical scars clean, dry, healing well, postoperative bruising noted but in stage of healing Neuro: AO x3, CN II-XII grossly intact, moves all extremities Psych: affect normal, mood normal, not suicidal, not homicidal Course Course Course Narrative: Postoperative urinary retention, this is patient's 3rd visit for retention. Quinones catheter placed with >700 cc of dark red urine drained. Patient states that the urine has been bloody since her cystoscopy and gradually darkening. There is bacteria seen, no leukocyte esterase. Patient has pending follow up with her urologist. We will not start empiric antibiotics, culture is ordered, if anything grows in culture we will call in antibiotics. Quinones care instructions discussed with patient at bedside Orders Ordered: ED Orders 06/28/23 16:35 Ictotest Urine Stat UA Complete [Urinalysis and Microscopic] Stat Urine Culture Stat Vital Signs Vital signs: Vital Signs - 8 hr 06/28/23 16:03 06/28/23 16:08 06/28/23 16:08 Temperature 99.3 F Pulse Rate 88 95 H Respiratory Rate 16 Blood Pressure 104/55 L 104/55 L Pulse Oximetry 100 Oxygen Delivery Method Room Air 06/28/23 16:30 06/28/23 16:30 06/28/23 17:00 Temperature Pulse Rate 58 L 82 Respiratory Rate Blood Pressure 110/58 L Pulse Oximetry 93 96 Oxygen Delivery Method Room Air 06/28/23 17:01 06/28/23 17:01 06/28/23 17:30 Temperature Pulse Rate 83 Respiratory Rate Blood Pressure 141/64 H 148/64 H Pulse Oximetry 97 Oxygen Delivery Method Room Air 06/28/23 17:30 Temperature Pulse Rate 78 Respiratory Rate Blood Pressure Pulse Oximetry 100 Oxygen Delivery Method Room Air MDM - Female Genitourinary Differential Diagnosis Differential diagnosis: Likely urinary tract infection and other (urinary retention, hematuria) Lab Data Labs: Lab Results 06/28/23 Range/Units 16:35 Urine Color Red Urine Appearance Turbid Urine pH 7.0 (4.5-8.0) Ur Specific [place] 1.015 (1.000-1.035) Urine Protein 3+ H (Negative) Urine Glucose (UA) Negative (Negative) g/dL Urine Ketones Negative (NEGATIVE) Urine Occult Blood 3+ H (Negative) Urine Nitrate Negative (Negative) Urine Bilirubin 1+ H (NEGATIVE) Ur Bilirubin Confirm Cancelled Urine Urobilinogen 0.2 (0.2) E.U./dL Ur Leukocyte Esterase Trace H (NEGATIVE) Urine RBC >100/hpf H (0-5/HPF) Urine WBC 1-5/hpf (0-5/HPF) Ur Squamous Epith Cells 1-5 /hpf (0-5/HPF) Urine Bacteria Moderate (10-30) H (None) Ur Culture Indicated? Specimen cultured Discharge Plan Departure Patient Disposition: Home Clinical Impression: Acute urinary retention Chronic kidney disease Qualifiers: Chronic kidney disease stage: on chronic dialysis Qualified Code(s): N18.6 - End stage renal disease; Z99.2 - Dependence on renal dialysis Instructions: How to Care for Your Quinones Catheter -- Female Prescriptions: New tamsulosin [Flomax] 0.4 mg capsule 0.4 mg PO DAILY Qty: 30 0RF No Action aspirin 81 MG tablet,delayed release (DR/EC) 81 mg PO QDAY Qty: 0 multivitamin [Multiple Vitamins] 1 EACH tablet 1 tab PO DAILY Qty: 0 omega 0-eyg-zyi-fish oil [Fish Oil] 1,000 mg (120 mg-180 mg) Capsule 1,000 mg PO DAILY Qty: 0 bupropion HCl [Wellbutrin SR] 150 MG tablet extended release 12 hr 150 mg PO BID Qty: 0 Basaglar KwikPen U-100 Insulin 100 UNIT/1 ML insulin pen 30 units subcut QPM Qty: 0 levothyroxine 200 MCG tablet 1 tab PO DAILY Qty: 0 oxycodone 5 MG tablet 5 - 7.5 mg PO DAILY Qty: 0 amlodipine 10 MG tablet 10 mg PO HS Qty: 0 glimepiride [Amaryl] 4 MG tablet 8 mg PO DAILY Qty: 0 sulfamethoxazole-trimethoprim [Bactrim] 400-80 mg tablet 1 tab PO DAILY Qty: 7 0RF ciprofloxacin HCl [Cipro] 500 mg tablet 500 mg PO BID Qty: 14 0RF ascorbic acid (vitamin C) [Vitamin C] 1,000 mg tablet extended release 1,000 mg PO DAILY Patient Comments: Take 1 tablet by mouth once a day ciprofloxacin HCl 250 mg tablet 250 mg PO [id number] Patient Comments: take 1 tablet by mouth every 12 hours for 7 days terbinafine HCl 250 mg tablet 250 mg PO TUTHSA Patient Comments: take 1 tablet by mouth 3 DAYS PER WEEK SUNDAY, SUNDAY, SATURDAYS hydroxyzine HCl 25 mg tablet 25 - 50 mg PO QID PRN (Reason: Anxiety) Patient Comments: take 1 to 2 tablets by mouth four times a day if needed for anxiety furosemide 20 mg tablet 20 mg PO DAILY Patient Comments: take 1 tablet by mouth once daily rosuvastatin 10 mg tablet 10 mg PO DAILY sevelamer carbonate 800 mg tablet 800 mg PO TID Patient Comments: take 1 tablet by mouth three times a day with meals SWALLOW TABLET WHOLE DO NOT CRUSH BREAK OR CHEW cephalexin 500 mg capsule 500 mg PO BID Qty: 20 0RF Referrals: Jerry Casiano MD [Primary Care Provider] - Stand Alone Forms: Patient Portal/API
[2023-06-28 17:00] VITALS: PULSE 82; O2SAT 96
[2023-06-28 17:01] VITALS: BP 141/64; PULSE 83; O2SAT 97
[2023-06-28 17:11] LABS: Appearance Urine UA TURBID; Color Urine UA RED; Glucose Urine UA NEGATIVE (Negative); Ketones Urine UA NEGATIVE (NEGATIVE); Leukocyte Esterase Urine UA TRACE (NEGATIVE); Nitrite Urine UA NEGATIVE (Negative); Occult Blood Urine UA 3+ (Negative); Protein Urine UA 3+ (Negative); Specific Gravity Urine UA 1.015 (1.000-1.035); Urobilinogen Urine UA 0.2 E.U./dL (0.2)
[2023-06-28 17:25] LABS: Bacteria Urine Moderate (10-30); RBC Urine >100/HPF (0-5/HPF); Squamous Epithelial Cell Urine 1-5 /HPF (0-5/HPF); WBC Urine 1-5/HPF (0-5/HPF)
[2023-06-28 17:26] LABS: Culture Indicated Urine Specimen Cultured
[2023-06-28 17:30] VITALS: BP 148/64; PULSE 78; O2SAT 100
[2023-06-28 20:34] LABS: Bilirubin Urine UA 1+ (NEGATIVE)
== END 2023-06-28 18:14 | disposition home or self-care (01) ==
PROVIDERS: Emergency Provider Emergency Medicine; PCP Family Medicine
DX: R33.9 Retention of urine, unspecified (principal)
CPT/HCPCS: 51702; 51798; 81001; 87086; 99283

== ENCOUNTER → 2023-09-05 15:40 | Outpatient (CLI) | payer MEDICARE, MEDICAID, SELFPAY ==
--- NOTE | 2023-09-05 15:44 | DI.RAD.S_ITS ---
PROCEDURE: XR CHEST 2V INDICATIONS: CHEST COLD TECHNIQUE: 2 views of the chest were acquired. COMPARISON: [facility], CR, XR CHEST 1V, 05/23/2021, 21:31. [facility], CR, XR CHEST 2V, 10/08/2018, 19:06. FINDINGS: Surgical changes and devices: None. Lungs and pleura: Lungs are clear. No pleural effusions or pneumothorax. Mediastinum: Mediastinal contours are normal. Heart size is normal. Bones and chest wall: No suspicious bony abnormalities. Soft tissues appear unremarkable. IMPRESSION: No acute cardiopulmonary abnormality is seen. Dictated by: Danilo Cui M.D. on 09/05/2023 at 16:53 Approved by: Danilo Cui M.D. on 09/05/2023 at 16:54
== END ==
LOC: DI 15:41
PROVIDERS: PCP Family Medicine; Referring Provider Family Medicine; Visit Provider Family Medicine
DX: N18.6 End stage renal disease (principal); J45.20 Mild intermittent asthma, uncomplicated; Z87.891 Personal history of nicotine dependence
CPT/HCPCS: 71046

== ENCOUNTER → 2024-02-20 13:58 | Outpatient (CLI) | payer MEDICARE, MEDICAID, SELFPAY ==
--- NOTE | 2024-02-20 13:59 | DI.MG.S_ITS ---
BILATERAL DIGITAL SCREENING MAMMOGRAM 3D/2D WITH CAD: 02/20/2024 CLINICAL: Routine screening. Family history of breast cancer. Comparison is made to exams dated: 01/19/2023 mammogram, 07/24/2020 mammogram, and 10/11/2017 mammogram - [facility]. There are scattered areas of fibroglandular density in both breasts (category b / 25%-50% glandular tissue). Current study was also evaluated with a Computer Aided Detection (CAD) system. There are benign vascular calcifications in both breasts. No significant masses, calcifications, or other findings are seen in either breast. There has been no significant interval change. IMPRESSION: BENIGN There is no mammographic evidence of malignancy. A 1 year screening mammogram is recommended. Based on the Tyrer Cuzick model (a risk assessment model) the patient's lifetime risk is 4.4% and her 10 year risk is 2.3%. According to the ACR, ACS, and NCCN guidelines, an annual breast MRI exam along with mammogram is recommended if the patient's lifetime risk is 20% or greater. This exam was interpreted at Station ID: [id number]. NOTE: For mammograms, a report in lay terms will be sent to the patient. Approximately 15% of breast malignancies will not be visualized mammographically. In the management of a palpable breast mass, a negative mammogram must not discourage biopsy of a clinically suspicious lesion. Electronically Signed By: Javy cox/magnus:02/20/2024 16:07:21 letter sent: Normal Exam ACR BI-RADS Category 2: Benign Finding(s) 3342F
== END ==
PROVIDERS: PCP Family Medicine; Referring Provider Family Medicine; Visit Provider Family Medicine
DX: Z12.31 Encounter for screening mammogram for malignant neoplasm of breast (principal); Z80.3 Family history of malignant neoplasm of breast; R92.323 Mammographic fibroglandular density, bilateral breasts
CPT/HCPCS: 77063; 77067

== ENCOUNTER → 2024-06-13 07:48 | Outpatient (CLI) | payer MEDICARE, MEDICAID, SELFPAY ==
--- NOTE | 2024-06-13 | DI.CT.S_ITS ---
PROCEDURE: CT LUNG LOW DOSE SCREENING INDICATIONS: nicotine dependence TECHNIQUE: Noncontrast 2.0-2.5 mm thick sections acquired from the pulmonary apices to the posterior costophrenic angles. 7 mm thick axial MIP, and 5 mm coronal and sagittal reformats were then acquired. For radiation dose reduction, the following was used: automated exposure control, adjustment of mA and/or kV according to patient size. COMPARISON: None. FINDINGS: Image quality: Diagnostic Lungs and pleura: No dense airspace disease. No suspicious pulmonary nodules. No pleural effusions. Micro nodules are seen in the right middle lobe (6/113). Mediastinum, heart, and esophagus: Unremarkable esophagus. Coronary calcifications. No pathologic lymph nodes by size criteria. Chest wall and thyroid: Unremarkable Upper abdomen: No gross abnormality on these low-dose noncontrast images Bones: There is a mixed density lesion in the left half of the T11 vertebral body, slightly larger than 2019. IMPRESSION: Lung RADS 2: Continue annual screening. Mixed density lesion in the left half of T11 vertebral body, indeterminate on CT, probably a vertebral hemangioma, slightly increased from 2019. Coronary calcifications. Dictated by: Zain Guevara M.D. on 06/13/2024 at 16:25 Approved by: Zain Guevara M.D. on 06/13/2024 at 16:29
== END ==
LOC: CT 07:48
PROVIDERS: PCP Family Medicine; Referring Provider Family Medicine; Visit Provider Family Medicine
DX: Z12.2 Encounter for screening for malignant neoplasm of respiratory organs (principal); I25.10 Atherosclerotic heart disease of native coronary artery without angina pectoris; Z87.891 Personal history of nicotine dependence
CPT/HCPCS: 71271

== ENCOUNTER 2024-10-01 13:23 | Emergency (ER) | payer MEDICARE, MEDICAID, SELFPAY ==
[2024-10-01 13:28] VITALS: BP 130/61; PULSE 67; RESP 18; TEMP 37.2; O2SAT 92; BMI 38.4
--- NOTE | 2024-10-01 13:33 | DI.RAD.S_ITS ---
PROCEDURE: XR KNEE RT 3V INDICATIONS: Trip and fall. Pain with weight bearing. TECHNIQUE: 3 views of the knee were acquired. COMPARISON: None. FINDINGS: Bones: No fractures or dislocations. No suspicious bony lesions. Tricompartmental arthritic changes most severe laterally. Periarticular osteophytes and chondrocalcinosis are present without distinct erosions. Prominent lateral patellar subluxation. Soft tissues: Moderate joint effusion. No suspicious soft tissue calcifications. IMPRESSION: Moderate effusion. No visualized acute fracture or dislocation. However, if clinical concern and/or pain persist, short interval imaging followup in 7-10 days is recommended, as occult injury cannot be definitively excluded. Dictated by: Viji Xiao M.D. on 10/01/2024 at 14:36 Approved by: Viji Xiao M.D. on 10/01/2024 at 14:36
--- NOTE | 2024-10-01 13:36 | ED_ITS ---
<Statement entered by Hansel Tapia, - 10/01/24 15:23> Dr. Tapia: I was immediately available in the department for consultation. I did not actually see the patient. HPI - Fall General Chief Complaint: Fall Stated Complaint: fall/r knee injury, dialysis pt Time Seen by Provider: 10/01/24 13:36 Source: patient Mode of arrival: Wheelchair History of Present Illness HPI Narrative: this is a 69-year-old female presents emergency department due to A mechanical ground level fall where she was wearing a new pair clots and tripped over a curb landing on her right knee primarily. She was not take routine blood thinners but does receive heparin during her routine weekly dialysis appointments. She had not hit her head or injure any other part of her body. Tetanus is not up-to-date. She denies any numbness. States that she was still able to walk on her right knee but experiences some pain. Related Data Home Medications Medication Instructions Recorded Confirmed aspirin 81 mg tablet,delayed 81 mg PO QDAY ##0 03/19/16 release multivitamin (Multiple Vitamins 1 tab PO DAILY #0 tabs 03/19/16 03/06/19 tablet) omega 8-jvf-dau-fish oil 1,000 mg 1,000 mg PO DAILY ##0 03/19/16 (120 mg-180 mg) capsule (Fish Oil) amlodipine 10 mg tablet 10 mg PO HS ##0 10/10/17 bupropion HCl 150 mg tablet,12 hr 150 mg PO BID ##0 10/10/17 03/06/19 sustained-release (Wellbutrin SR) glimepiride 4 mg tablet (Amaryl) 8 mg PO DAILY ##0 10/10/17 03/06/19 insulin glargine 100 unit/mL (3 30 units SUBCUT QPM ##0 10/10/17 03/06/19 mL) subcutaneous pen (Basaglar KwikPen U-100 Insulin) levothyroxine 200 mcg tablet 1 tab PO DAILY ##0 10/10/17 03/06/19 oxycodone 5 mg tablet 5 - 7.5 mg PO DAILY ##0 10/10/17 03/06/19 ascorbic acid (vitamin C) 1,000 mg 1,000 mg PO DAILY 03/06/19 03/06/19 tablet,extended release ciprofloxacin HCl 250 mg tablet 250 mg PO [id number] 03/06/19 03/06/19 furosemide 20 mg tablet 20 mg PO DAILY 03/06/19 03/06/19 hydroxyzine HCl 25 mg tablet 25 - 50 mg PO QID PRN Anxiety 03/06/19 03/06/19 rosuvastatin 10 mg tablet 10 mg PO DAILY 03/06/19 03/06/19 sevelamer carbonate 800 mg tablet 800 mg PO TID 03/06/19 03/06/19 terbinafine HCl 250 mg tablet 250 mg PO TUTHSA 03/06/19 03/06/19 Previous Rx's Medication Instructions Recorded cephalexin 500 mg capsule 500 mg PO BID #20 caps 03/06/19 sulfamethoxazole 400 1 tab PO DAILY #7 tabs 08/19/19 mg-trimethoprim 80 mg tablet (Bactrim) ciprofloxacin HCl 500 mg tablet 500 mg PO BID #14 tabs 03/18/22 (Cipro) tamsulosin 0.4 mg capsule (Flomax) 0.4 mg PO DAILY #30 caps 06/28/23 Allergies Allergy/AdvReac Type Severity Reaction Status Date / Time prednisone Allergy Severe Agitated Verified 05/23/21 20:49 Review of Systems Review of Systems Narrative: GENERAL: Denies chills, fatigue, malaise, fever, sweats. HEENT: Denies sinus pain, ear pain, sore throat, difficulty swallowing, dizziness. RESPIRATORY: Denies dyspnea, cough, wheezing, hemoptysis, sputum. CARDIOVASCULAR: Denies chest pain, palpitations, orthopnea, edema, GASTROINTESTINAL: Denies nausea, vomiting, abdominal pain, diarrhea, constipation, melena. : Denies dysuria, frequency, incontinence, hematuria, urinary retention. MUSCULOSKELETAL: Reports right knee pain, otherwisedenies weakness, joint pain, or bony pain SKIN: Denies rash, skin lesions, or other NEUROLOGIC: Denies weakness, headache, numbness, change in speech, confusion, seizures, incoordination. PSYCHIATRIC: No concerning psychosocial issues. 12 point review of systems is negative except for those stated above Patient History Medical History (Updated 10/01/24 @ 14:46 by Hill [place] PA-C) Mumps (~1965) Measles (~1960) Chicken pox Dialysis patient Surgical History Anesthesia Fistula (~2017) History of appendectomy (~1995) History of section (~1986) History of tonsillectomy (~1967) Family History Father CAD (coronary artery disease) CO (myocardial infarction) Diabetes mellitus History of heart disease Hypertension Hyperlipidemia Mother Stroke Brother Diabetes mellitus Hyperlipidemia Hypertension Brother Diabetes mellitus Hypertension Sister Mental health problem Grandfather History of heart disease Grandmother Cancer Diabetes mellitus Grandfather History of heart disease Grandmother Cancer Diabetes mellitus Family/Other No problems noted. Social History Smoking Status: Former smoker Smoking Status: Former smoker alcohol intake frequency: 0-2 drinks per day Exam Narrative Exam Narrative: GENERAL: Well-developed patient, in mild distress. HEAD: Atraumatic. Normocephalic. EYES: Pupils equal round and reactive. Extraocular motions intact. No scleral icterus. No injection or drainage. ENT: Nose without bleeding, purulent drainage. Throat without erythema, tonsillar hypertrophy or exudate. Airway patent. NECK: Trachea midline. Non tender EXTREMITIES: superficial abrasion to the right knee, no deeper lacerations. Generalized tenderness to palpation to the right knee. No joint laxity. Range of motion decreased secondary to pain. NEURO: AOx3. SKIN: No rash or erythema of visible areas Initial Vital Signs Initial Vital Signs: Vital Signs Temperature 98.9 F 10/01/24 13:28 Pulse Rate 67 10/01/24 13:28 Respiratory Rate 18 10/01/24 13:28 Blood Pressure 130/61 10/01/24 13:28 Pulse Oximetry 92 10/01/24 13:28 Oxygen Delivery Method Room Air 10/01/24 13:28 Course Orders Ordered: ED Orders 10/01/24 13:33 XR knee RT 3V Stat Discontinued Medications Diphtheria/Tetanus/Acell Pertussis (Tet,Diph,Pertuss(Acell),Vac/Pf 0.5 Ml Syringe) 0.5 ml IM .ONCE ONE Stop: 10/01/24 13:41 Last Admin: 10/01/24 13:43 Dose: 0.5 ml Vital Signs Vital signs: Vital Signs - 8 hr 10/01/24 13:28 Temperature 98.9 F Pulse Rate 67 Respiratory Rate 18 Blood Pressure 130/61 Pulse Oximetry 92 Oxygen Delivery Method Room Air MDM - Fall Imaging Data Extremity x-ray #1: My Impression: [address] [address] XRay Report Signed Patient: Petra Lopez MR#: [id number] : 1955 Acct:[id number] Age/Sex: 69 / F Date of Service: 10/01/24 Loc: ED Accession Number: [id number] Procedure: XR knee RT 3V Ordering Provider: Hansel Tapia D.O. PROCEDURE: XR KNEE RT 3V INDICATIONS: Trip and fall. Pain with weight bearing. TECHNIQUE: 3 views of the knee were acquired. COMPARISON: None. FINDINGS: Bones: No fractures or dislocations. No suspicious bony lesions. Tricompartmental arthritic changes most severe laterally. Periarticular osteophytes and chondrocalcinosis are present without distinct erosions. Prominent lateral patellar subluxation. Soft tissues: Moderate joint effusion. No suspicious soft tissue calcifications. IMPRESSION: Moderate effusion. No visualized acute fracture or dislocation. However, if clinical concern and/or pain persist, short interval imaging followup in 7-10 days is recommended, as occult injury cannot be definitively excluded. Dictated by: Viji Xiao M.D. on 10/01/2024 at 14:36 Approved by: Viji Xiao M.D. on 10/01/2024 at 14:36 [facility] Narrative Medical decision making narrative: ED course: This is a 69-year-old female presenting to clinic due to a knee contusion. She landed directly on her right knee. X-ray showed no fractures. She was not presenting with any joint laxity. Recommended rest, ice, elevation. Did have a superficial abrasion which was bandaged and tetanus updated. Neurovascularly intact throughout. CC: Right knee pain Complicating co-morbidities: none Data collected from: Previous notes Medical records reviewed: Patient was last seen in this emergency department about a year and a half ago due to inability to urinate. History of end-stage renal disease on dialysis, hypertension, diabetes. Takes a baby aspirin daily. Differential considered, but not limited to: fracture, ligament injury, sprain Exam documented above, pertinent findings include: no joint laxity Lab Test results independently reviewed as above. Pertinent findings: none obtained Imaging studies independently reviewed: no fractures, did show moderate effusion Scores Used: None MIPS Elements: None Consultations: None Treatments: wound care Re-evaluations: none Discussion: Discussed plan with the patient was comfortable with the plan Diagnosis: knee contusion Disposition: see below, along with detailed discharge instructions that have been reviewed with patient as well as indications for ED re-evaluation and additional outpatient follow up Discharge Plan Departure Patient Disposition: Home Clinical Impression: Contusion of knee Activity Restrictions/Additional Instructions: Thank you for coming to the [facility] Emergency Department today. as we discussed your x-ray shows no evidence of any fracture. I suspect the pain should improve over the next week or 2 with rest, elevation. Please return to the emergency department if you develop any Numbness, significantly worsening pain, or any other concerning signs or symptoms. I hope you feel better soon. Please follow up with your primary care provider within a week if your symptoms continue. If you do not have a primary care provider please contact the [facility] Resource line at [phone]. They will ask some questions about your medical history and help you get set up with a provider in the community. Prescriptions: No Action aspirin 81 MG tablet,delayed release (DR/EC) 81 mg PO QDAY Qty: 0 multivitamin [Multiple Vitamins] 1 EACH tablet 1 tab PO DAILY Qty: 0 omega 6-tqg-faw-fish oil [Fish Oil] 1,000 mg (120 mg-180 mg) Capsule 1,000 mg PO DAILY Qty: 0 bupropion HCl [Wellbutrin SR] 150 MG tablet extended release 12 hr 150 mg PO BID Qty: 0 Basaglar KwikPen U-100 Insulin 100 UNIT/1 ML insulin pen 30 units subcut QPM Qty: 0 levothyroxine 200 MCG tablet 1 tab PO DAILY Qty: 0 oxycodone 5 MG tablet 5 - 7.5 mg PO DAILY Qty: 0 amlodipine 10 MG tablet 10 mg PO HS Qty: 0 glimepiride [Amaryl] 4 MG tablet 8 mg PO DAILY Qty: 0 sulfamethoxazole-trimethoprim [Bactrim] 400-80 mg tablet 1 tab PO DAILY Qty: 7 0RF ciprofloxacin HCl [Cipro] 500 mg tablet 500 mg PO BID Qty: 14 0RF ascorbic acid (vitamin C) [Vitamin C] 1,000 mg tablet extended release 1,000 mg PO DAILY Patient Comments: Take 1 tablet by mouth once a day ciprofloxacin HCl 250 mg tablet 250 mg PO [id number] Patient Comments: take 1 tablet by mouth every 12 hours for 7 days terbinafine HCl 250 mg tablet 250 mg PO TUTHSA Patient Comments: take 1 tablet by mouth 3 DAYS PER WEEK SUNDAY, SUNDAY, SATURDAYS hydroxyzine HCl 25 mg tablet 25 - 50 mg PO QID PRN (Reason: Anxiety) Patient Comments: take 1 to 2 tablets by mouth four times a day if needed for anxiety furosemide 20 mg tablet 20 mg PO DAILY Patient Comments: take 1 tablet by mouth once daily rosuvastatin 10 mg tablet 10 mg PO DAILY sevelamer carbonate 800 mg tablet 800 mg PO TID Patient Comments: take 1 tablet by mouth three times a day with meals SWALLOW TABLET WHOLE DO NOT CRUSH BREAK OR CHEW cephalexin 500 mg capsule 500 mg PO BID Qty: 20 0RF tamsulosin [Flomax] 0.4 mg capsule 0.4 mg PO DAILY Qty: 30 0RF Referrals: Jerry Casiano MD [Primary Care Provider] - Stand Alone Forms: Patient Portal/API/Survey
[2024-10-01] MEDS: TET,DIPH,PERTUSS(ACELL),VAC/PF 0.5 ML SYRINGE IM (13:43)
[2024-10-01 14:50] VITALS: BP 128/64; PULSE 64; RESP 18; TEMP 37.1; O2SAT 94
== END 2024-10-01 14:51 | disposition home or self-care (01) ==
PROVIDERS: Emergency Provider Physician Assistant Medical; PCP Family Medicine
DX: S80.01XA Contusion of right knee, initial encounter (principal); Z23 Encounter for immunization; W01.0XXA Fall on same level from slipping, tripping and stumbling without subsequent striking against object, initial encounter
CPT/HCPCS: 73562; 90471; 99283; 99284; 90715

== ENCOUNTER → 2025-04-08 15:44 | Outpatient (CLI) | payer MEDICARE, MEDICAID, SELFPAY ==
--- NOTE | 2025-04-08 15:45 | DI.MG.S_ITS ---
MM screening mammo BI: 04/08/2025. BI-RADS: 1 CLINICAL: 70-year old female for bilateral screening mammogram. Tyrer-Cuzick lifetime risk of 4.7%. No personal or first-degree family history of breast cancer. The patient had a prior right breast biopsy. PRIOR EXAMS 02/20/2024, 01/19/2023, 07/24/2020, 10/11/2017. MAMMOGRAPHY TECHNIQUE: 2D and 3D (tomosynthesis) digital mammographic views obtained, with additional images as needed for full coverage. Current study was also evaluated with a Computer Aided Detection (CAD) system. DENSITY B. There are scattered areas of fibroglandular density. MAMMOGRAPHY FINDINGS Bilateral: No suspicious mass, asymmetry, microcalcification, or other abnormality seen. IMPRESSION: * No evidence of malignancy. RECOMMENDATIONS Bilateral * Annual screening mammography. OVERALL ASSESSMENT CATEGORY BI-RADS-1: Negative. [employer] recommends annual screening mammography beginning at age 40 for women with average risk of breast cancer. ELECTRONICALLY SIGNED: Andi Galloway M.D. on 04/09/2025 at 06:46:23 AM PT Interpreting Station ID: [id number]
== END ==
LOC: MAMMO 15:44
PROVIDERS: Family Provider Family Medicine; PCP Family Medicine; Referring Provider Family Medicine; Visit Provider Family Medicine
DX: Z12.31 Encounter for screening mammogram for malignant neoplasm of breast (principal)
CPT/HCPCS: 77063; 77067